=== PATIENT | female | born 1940 ===

== ENCOUNTER 2020-11-27 22:58 | Emergency (ER) | payer MEDICARE, BC ==
[2020-11-27] MEDS ORDERED: Sodium Chloride 0.9% 10 ML Syringe FLUSH PRN (22:59)
[2020-11-27] MEDS ORDERED: Sodium Chloride 0.9% 2.5 ML Syringe FLUSH PRN (22:59)
--- NOTE | 2020-11-27 23:02 | EDM.PDOC ---
ED HPI GENERAL MEDICAL PROBLEM - General Stated Complaint: EMS ARRIVAL Time Seen by Provider: 11/27/20 22:58 - History of Present Illness INITIAL COMMENTS - FREE TEXT/NARRATIVE: History of present illness: [] Patient missed her recliner and fell onto the floor on her back 4 hours before arrival. She was too weak to get up. She waited until EMS got there. She denies any injury. She does say she has been weak for more than 12 days. Her weakness is associated with feverishness, chills. Because of that her friends told her she should be tested for Covid but instead she has quarantined herself for 12 days. She continues to primarily suffer with weakness but she over the last day or 2 has had significant pain in her joints and all over. The patient has no shortness of breath. She has no chest pain. She is a non- smoker. She is diabetic and treated with gemfibrozil. She has no family history of heart attack or stroke. Review of systems: As per history of present illness and below otherwise all systems reviewed and negative. Past medical history: As per history of present illness and as reviewed below otherwise noncontributory. Surgical history: As per history of present illness and as reviewed below otherwise noncontributory. Social history: No reported history of drug or alcohol abuse. Family history: As per history of present illness and as reviewed below otherwise noncontributory. Physical exam: Constitutional - well developed, well-nourished and in no acute distress HEENT - normocephalic, no evidence of trauma - external nose and mouth normal - no mass in neck and no JVD - mucosae moist EYES - full EOM, PERRL, no icterus - no evidence of inflammation, injection, or drainage Respiratory - no respiratory distress, equal bilateral expansion, lungs clear to auscultation and no abnormal lung sounds Cardiovascular - Regular Rhythm with S1 and S2 appreciated and no murmur, gallop or rub. GI - abdomen soft without distension or organomegaly - normal bowel sounds - no guard or rebound Musculoskeletal no gross deformity of long bones or joints - no tenderness, swelling or edema Neurologic - Alert and oriented times four - CN II-XII grossly intact - motor sensory and coordination symmetrically normal Psychiatric - appropriate mood and affect with normal thought content Hematologic - No petechiae or purpura - mucosa appropriate color and sclera not pale - normal nail bed color and refill Integument - no rash or evidence of trauma - normal turgor Diagnostics: [] Therapeutics: [] Impression: [] Plan: [] Definitive disposition and diagnosis as appropriate pending reevaluation and review of above. Right Shoulder Pain Score (Numeric/FACES): 5 - Related Data Allergies Allergy/AdvReac Type Severity Reaction Status Date / Time psyllium [From Metamucil] Allergy Other Verified 11/27/20 23:00 Home Meds: Home Meds Acarbose 50 mg PO DAILY 11/27/20 [History] Acetaminophen/Codeine [Tylenol with Codeine No.3 300MG/30MG] 1 tab PO QID 11/27/20 [History] Furosemide 40 mg PO DAILY 11/27/20 [History] gemfibroziL [Gemfibrozil] 600 mg PO BID 11/27/20 [History] glyBURIDE [Micronase] 2.5 mg PO DAILY 11/27/20 [History] lisinopriL [Prinivil] 10 mg PO DAILY 11/27/20 [History] metFORMIN [Glucophage] 500 mg PO BID 11/27/20 [History] traZODone HCl [Trazodone HCl] 100 mg PO DAILY 11/27/20 [History] ED ROS PEDIATRIC - Review of Systems Review Of Systems: Comprehensive ROS is negative, except as noted in HPI. ED EXAM, GENERAL (PEDS) - Physical Exam Exam: See Below Text/Narrative:: My physical exam is in the HPI #1 Interpretation EKG Interpretation Comments: EKG sinus rhythm heart rate 99 NM 187 QT 477 QRS [address] and T normal impression normal EKG #2 Interpretation EKG Interpretation Comments: EKG at 137 shows sinus rhythm heart rate 89 NM 167 QT 462 [place] [address] normal T compared to the prior one tonight this is not changed and is still normal thus my impression normal EKG Course - Vital Signs Text/Narrative:: Troponin is positive had a large elevation of CPK. This is likely microvascular occlusion with non-STEMI. Transport will be at least 3-1/2 hours away so I am going to repeat the troponin to see if it is something that is rising or if it may be in fact a missed NV that could be monitored here and referred for outpatient cardiology evaluation. 2:16 AM patient remained stable and pain-free EKG was unchanged troponin flor slightly. Discussed with Dr. Mccauley at [facility] and he agreed to accept this patient so that she can have anatomic study of her heart. Patient has UTI for which we have given ceftriaxone and she has elevated troponin for which we are observing on a monitor and arranging transport for anatomic study. Last Recorded V/S: Last Vital Signs Temp 36.2 C 11/28/20 02:00 Pulse 105 H 11/28/20 08:30 Resp 16 11/28/20 08:30 BP 158/68 H 11/28/20 08:37 Pulse Ox 98 11/28/20 08:30 - Orders/Labs/Meds Orders: Active Orders 24 hr Category Date Time Status CULTURE URINE [RM] Stat Lab 11/28/20 00:22 Received Saline Lock Insert [OM.PC] Stat Oth 11/27/20 22:59 Ordered Labs: Laboratory Tests 11/27/20 11/27/20 11/27/20 Range/Units 23:10 23:18 23:18 WBC 24.63 H (4.0-11.0) K/uL RBC 3.17 L (4.30-5.90) M/uL Hgb 9.3 L (12.0-16.0) g/dL Hct 27.5 L (36.0-46.0) % MCV 86.8 (80.0-98.0) fL MCH 29.3 (27.0-32.0) pg MCHC 33.8 (31.0-37.0) g/dL RDW Std Deviation 44.3 (28.0-62.0) fl RDW Coeff of Masoud 14 (11.0-15.0) % Plt Count 472 H (150-400) K/uL MPV 8.30 (7.40-12.00) fL Add Manual Diff YES Neutrophils % (Manual) 86 H (48.0-80.0) % Band Neutrophils % 7 % Lymphocytes % (Manual) 4 L (16.0-40.0) % Monocytes % (Manual) 3 (0.0-15.0) % Nucleated RBC % 0.0 /100WBC Absolute Seg Neuts 21.2 H (1.4-5.7) Band Neutrophils # 1.7 Lymphocytes # (Manual) 1.0 (0.6-2.4) Monocytes # (Manual) 0.7 (0.0-0.8) Nucleated RBCs # 0 K/uL Sodium 129 L (136-145) mmol/L Potassium 3.6 (3.5-5.1) mmol/L Chloride 92 L (98-107) mmol/L Carbon Dioxide 23.4 (21.0-32.0) mmol/L BUN 18 (7.0-18.0) mg/dL Creatinine 1.4 H (0.6-1.0) mg/dL Est Cr Clr Drug Dosing 26.95 mL/min Estimated GFR (MDRD) 36.3 ml/min Glucose 218 H (74-106) mg/dL Calcium 9.0 (8.5-10.1) mg/dL Total Bilirubin 0.5 (0.2-1.0) mg/dL AST 22 (15-37) IU/L ALT 16 (14-63) IU/L Alkaline Phosphatase 93 (46-116) U/L Creatine Kinase 129 (26-308) U/L Troponin I 0.492 H* (0.000-0.056) ng/mL Total Protein 7.2 (6.4-8.2) g/dL Albumin 2.2 L (3.4-5.0) g/dL Globulin 5.0 H (2.6-4.0) g/dL Albumin/Globulin Ratio 0.4 L (0.9-1.6) Urine Color Urine Appearance Urine pH (5.0-8.0) Ur Specific [place] (1.001-1.035) Urine Protein (NEGATIVE) mg/dL Urine Glucose (UA) (NEGATIVE) mg/dL Urine Ketones (NEGATIVE) mg/dL Urine Occult Blood (NEGATIVE) Urine Nitrite (NEGATIVE) Urine Bilirubin (NEGATIVE) Urine Urobilinogen (<2.0) EU/dL Ur Leukocyte Esterase (NEGATIVE) Urine RBC (0-2/HPF) Urine WBC (0-5/HPF) Ur Epithelial Cells (NONE-FEW) Urine Bacteria (NEGATIVE) Urine Mucus (NONE-MOD) Urinalysis Comment SARS-CoV-2 RNA (RUPINDER) NEGATIVE (NEGATIVE) 11/27/20 11/28/20 11/28/20 Range/Units 23:40 01:30 07:10 WBC (4.0-11.0) K/uL RBC (4.30-5.90) M/uL Hgb (12.0-16.0) g/dL Hct (36.0-46.0) % MCV (80.0-98.0) fL MCH (27.0-32.0) pg MCHC (31.0-37.0) g/dL RDW Std Deviation (28.0-62.0) fl RDW Coeff of Masoud (11.0-15.0) % Plt Count (150-400) K/uL MPV (7.40-12.00) fL Add Manual Diff Neutrophils % (Manual) (48.0-80.0) % Band Neutrophils % % Lymphocytes % (Manual) (16.0-40.0) % Monocytes % (Manual) (0.0-15.0) % Nucleated RBC % /100WBC Absolute Seg Neuts (1.4-5.7) Band Neutrophils # Lymphocytes # (Manual) (0.6-2.4) Monocytes # (Manual) (0.0-0.8) Nucleated RBCs # K/uL Sodium (136-145) mmol/L Potassium (3.5-5.1) mmol/L Chloride (98-107) mmol/L Carbon Dioxide (21.0-32.0) mmol/L BUN (7.0-18.0) mg/dL Creatinine (0.6-1.0) mg/dL Est Cr Clr Drug Dosing mL/min Estimated GFR (MDRD) ml/min Glucose (74-106) mg/dL Calcium (8.5-10.1) mg/dL Total Bilirubin (0.2-1.0) mg/dL AST (15-37) IU/L ALT (14-63) IU/L Alkaline Phosphatase (46-116) U/L Creatine Kinase (26-308) U/L Troponin I 0.536 H* 0.436 H* (0.000-0.056) ng/mL Total Protein (6.4-8.2) g/dL Albumin (3.4-5.0) g/dL Globulin (2.6-4.0) g/dL Albumin/Globulin Ratio (0.9-1.6) Urine Color YELLOW Urine Appearance CLOUDY Urine pH 6.0 (5.0-8.0) Ur Specific [place] 1.025 (1.001-1.035) Urine Protein 100 H (NEGATIVE) mg/dL Urine Glucose (UA) NEGATIVE (NEGATIVE) mg/dL Urine Ketones NEGATIVE (NEGATIVE) mg/dL Urine Occult Blood MODERATE H (NEGATIVE) Urine Nitrite NEGATIVE (NEGATIVE) Urine Bilirubin NEGATIVE (NEGATIVE) Urine Urobilinogen 0.2 (<2.0) EU/dL Ur Leukocyte Esterase MODERATE H (NEGATIVE) Urine RBC 3-6 (0-2/HPF) Urine WBC TO NUMEROUS TO COUNT H (0-5/HPF) Ur Epithelial Cells MANY (NONE-FEW) Urine Bacteria 4+ H (NEGATIVE) Urine Mucus MODERATE (NONE-MOD) Urinalysis Comment SARS-CoV-2 RNA (RUPINDER) (NEGATIVE) Meds: Medications Discontinued Medications Generic Name Dose Route Start Last Admin Trade Name Freq PRN Reason Stop Dose Admin Aspirin 324 mg 11/28/20 00:20 11/28/20 00:39 Aspirin PO 11/28/20 00:21 324 mg ONETIME ONE Administration Sodium Chloride 1,000 mls @ 125 mls/hr 11/28/20 00:20 11/28/20 00:37 Normal Saline IV 11/28/20 08:19 125 mls/hr .Bolus ONE Administration Ceftriaxone Sodium/Dextrose 1 50 mls @ 100 mls/hr 11/28/20 00:23 11/28/20 00:38 gm/ Premix IV 11/28/20 00:52 100 mls/hr ONETIME ONE Administration Sodium Chloride 10 ml 11/27/20 22:59 Saline Flush FLUSH ASDIRECTED PRN Keep Vein Open Sodium Chloride 2.5 ml 11/27/20 22:59 Saline Flush FLUSH ASDIRECTED PRN Keep Vein Open Departure - Departure Time of Disposition: 08:50 Disposition: DC/Tfer to Acute Hospital 02 Condition: Good Clinical Impression: UTI (urinary tract infection), Weakness, Type 2 diabetes mellitus, Elevated troponin I level - Discharge Information Referrals: PCP,None [Primary Care Provider] - Forms: ED Department Discharge Sepsis Event Note (ED) - Focused Exam Vital Signs: Vital Signs Pulse Resp BP Pulse Ox 11/28/20 08:37 158/68 H 11/28/20 08:30 105 H 16 142/67 H 98 11/28/20 08:00 18 148/64 H 98 11/28/20 07:30 19 140/61 97 - My Orders Last 24 Hours: My Active Orders 11/27/20 22:59 Saline Lock Insert [OM.PC] Stat 11/28/20 00:22 CULTURE URINE [RM] Stat - Assessment/Plan Last 24 Hours: My Active Orders 11/27/20 22:59 Saline Lock Insert [OM.PC] Stat 11/28/20 00:22 CULTURE URINE [RM] Stat
--- NOTE | 2020-11-27 23:32 | CR ---
HISTORY: Pain after fall COMPARISON: None available. FINDINGS: A single AP view of the pelvis obtained using portable technique at 2310 hours shows no sign of fracture or dislocation. There appears to be mild primary osteoarthritis of both sacroiliac joints. The hips are normal in appearance with no significant degenerative changes. There is prominence disc degenerative disease in the visualized inferior lumbar spine, associated with mild scoliosis convex towards the left. The soft tissues of the pelvis are unremarkable. IMPRESSION: No sign of acute osseous injury. 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 Dictated by Jaime Elam MD @ Nov 27 2020 11:27PM Signed by Dr. Jaime Elam @ Nov 27 2020 11:30PM
[2020-11-27 23:48] LABS: CARBON DIOXIDE,CO2 23.4 mmol/L (21.0-32.0); POTASSIUM,K 3.6 mmol/L (3.5-5.1)
[2020-11-28] MEDS ORDERED: Sodium Chloride 0.9% 1,000 ML IV ONE (00:20)
[2020-11-28] MEDS ORDERED: Aspirin 81 MG Tab.Chew PO ONE (00:20)
[2020-11-28] MEDS ORDERED: cefTRIAXone 1 GM in Premix Bag 1 BAG IV ONE (00:23)
== END 2020-11-28 08:50 ==
LOC: MW.ED 22:58
DX: N39.0 Urinary tract infection, site not specified (principal); E11.9 Type 2 diabetes mellitus without complications; R79.89 Other specified abnormal findings of blood chemistry; Z20.822 Contact with and (suspected) exposure to COVID-19; Z79.899 Other long term (current) drug therapy
CPT/HCPCS: 36415; 72170; 80053; 81001; 82550; 84484; 85025; 87086; 87088; 87186; 93005; 96365; 99285; A9270; J0696; J7030; U0002; 93010; 99284

== ENCOUNTER 2021-02-10 09:17 | Emergency (ER) | payer MEDICARE, BC ==
--- NOTE | 2021-02-10 09:20 | EDM.PDOC ---
ED HPI GENERAL MEDICAL PROBLEM - General Stated Complaint: BACK PAIN Time Seen by Provider: 02/10/21 09:18 Source of Information: Reports: Patient History Limitations: Reports: No Limitations - History of Present Illness INITIAL COMMENTS - FREE TEXT/NARRATIVE: 80-year-old female past medical history hypertension, NSTEMI 3 months ago, hyperlipidemia presents for back pain. Patient notes that she is struggled with left-sided lower back pain radiating into her lateral thigh for several months. For the last week the pain has been getting worse. She denies any dysuria, hematuria, urinary incontinence, and urinary retention. She is able to walk and denies muscle weakness but notes that it is painful all the time. Lower Back Pain Score (Numeric/FACES): 10 - Related Data Allergies Allergy/AdvReac Type Severity Reaction Status Date / Time psyllium [From Metamucil] Allergy Other Verified 02/10/21 09:42 Home Meds: Home Meds Acarbose 50 mg PO DAILY 11/27/20 [History] Acetaminophen/Codeine [Tylenol with Codeine No.3 300MG/30MG] 1 tab PO QID 11/27/20 [History] Furosemide 40 mg PO DAILY 11/27/20 [History] gemfibroziL [Gemfibrozil] 600 mg PO BID 11/27/20 [History] glyBURIDE [Micronase] 2.5 mg PO DAILY 11/27/20 [History] lisinopriL [Prinivil] 10 mg PO DAILY 11/27/20 [History] metFORMIN [Glucophage] 500 mg PO BID 11/27/20 [History] traZODone HCl [Trazodone HCl] 100 mg PO DAILY 11/27/20 [History] Acetaminophen/oxyCODONE [Percocet 325-5 MG] 1 each PO Q4H PRN 3 Days #18 tab 02/10/21 [Rx] Cyclobenzaprine [Flexeril] 10 mg PO TID PRN 3 Days #20 tab 02/10/21 [Rx] Omeprazole 20 mg PO DAILY 02/10/21 [History] Sulfamethoxazole/Trimethoprim [Bactrim Ds Tablet] 1 each PO BID 7 Days #14 tablet 02/10/21 [Rx] Past Medical History HEENT History: Reports: Cataract Cardiovascular History: Reports: High Cholesterol, Hypertension Respiratory History: Reports: None Gastrointestinal History: Reports: GERD Genitourinary History: Reports: None POLICY MANAGER History: Reports: None Musculoskeletal History: Reports: Arthritis Neurological History: Reports: Migraines Psychiatric History: Reports: Depression Endocrine/Metabolic History: Reports: Diabetes, Type II Hematologic History: Reports: None Oncologic (Cancer) History: Reports: None Dermatologic History: Reports: None - Infectious Disease History Infectious Disease History: Reports: Measles - Past Surgical History HEENT Surgical History: Reports: Cataract Surgery GI Surgical History: Reports: Appendectomy, Cholecystectomy Social & Family History - Caffeine Use Caffeine Use: Reports: None ED ROS GENERAL - Review of Systems Review Of Systems: Comprehensive ROS is negative, except as noted in HPI. ED EXAM, GENERAL - Physical Exam Exam: See Below Exam Limited By: No Limitations General Appearance: Alert, WD/WN, No Apparent Distress Throat/Mouth: Normal Voice, No Airway Compromise Head: Atraumatic, Normocephalic Neck: Normal Inspection Respiratory/Chest: No Respiratory Distress, Lungs Clear, Normal Breath Sounds, No Accessory Muscle Use GI/Abdominal: Soft, Non-Tender Back Exam: Normal Inspection Extremities: Normal Inspection Neurological: Alert, Normal Gait Psychiatric: Normal Affect, Normal Mood Skin Exam: Warm, Dry, Intact, Normal Color Course - Vital Signs Last Recorded V/S: Last Vital Signs Temp 97.2 F 02/10/21 09:43 Pulse 100 02/10/21 09:43 Resp 20 02/10/21 09:43 BP 149/68 H 02/10/21 09:43 Pulse Ox 99 02/10/21 09:43 - Orders/Labs/Meds Orders: Active Orders 24 hr Category Date Time Status CULTURE URINE [RM] Stat Lab 02/10/21 10:16 Received Sulfamethoxazole/Trimethoprim [Septra DS] Med 02/10/21 10:39 Once 1 tab PO ONETIME ONE Labs: Laboratory Tests 02/10/21 Range/Units 10:16 Urine Color YELLOW Urine Appearance CLOUDY Urine pH 6.0 (5.0-8.0) Ur Specific [place] 1.025 (1.001-1.035) Urine Protein 100 H (NEGATIVE) mg/dL Urine Glucose (UA) NEGATIVE (NEGATIVE) mg/dL Urine Ketones NEGATIVE (NEGATIVE) mg/dL Urine Occult Blood MODERATE H (NEGATIVE) Urine Nitrite NEGATIVE (NEGATIVE) Urine Bilirubin NEGATIVE (NEGATIVE) Urine Urobilinogen 0.2 (<2.0) EU/dL Ur Leukocyte Esterase LARGE H (NEGATIVE) Urine RBC 1-3 (0-2/HPF) Urine WBC TO NUMEROUS TO COUNT H (0-5/HPF) Ur Epithelial Cells FEW (NONE-FEW) Urine Bacteria 4+ H (NEGATIVE) Meds: Medications Discontinued Medications Generic Name Dose Route Start Last Admin Trade Name Freq PRN Reason Stop Dose Admin Cyclobenzaprine HCl 10 mg 02/10/21 10:06 02/10/21 10:20 Cyclobenzaprine 10 Mg Tab PO 02/10/21 10:07 10 mg ONETIME ONE Administration Dexamethasone 6 mg 02/10/21 10:06 02/10/21 10:20 Dexamethasone 10 Mg/Ml Sdv IM 02/10/21 10:07 6 mg ONETIME ONE Administration Oxycodone/Acetaminophen 1 tab 02/10/21 10:06 02/10/21 10:21 Acetaminophen/Oxycodone 325-10 Mg Tab PO 02/10/21 10:07 1 tab ONETIME ONE Administration - Re-Assessments/Exams Free Text/Narrative Re-Assessment/Exam: 02/10/21 10:08 Explained to patient that she will likely need an outpatient MRI of the back to further elucidate the etiology of her symptoms. Will treat symptomatically with Decadron, Percocet, Flexeril in the emergency department. Will get a urinalysis considering patient's advanced age to r/o urinary tract infection. 02/10/21 10:40 Patient's urinalysis does show evidence of urinary tract infection. Will give Bactrim and discharged with Bactrim, Percocet, Flexeril. Patient needs to follow-up with her primary care physician for further work-up of this chronic back pain. Departure - Departure Time of Disposition: 10:40 Disposition: Home, Self-Care 01 Condition: Good Clinical Impression: UTI (urinary tract infection) Qualifiers: Urinary tract infection type: acute cystitis Hematuria presence: without hematuria Qualified Code(s): N30.00 - Acute cystitis without hematuria Sciatica Qualifiers: Laterality: left Qualified Code(s): M54.32 - Sciatica, left side - Discharge Information Prescriptions: Sulfamethoxazole/Trimethoprim [Bactrim Ds Tablet] 1 each PO BID 7 Days #14 tablet Cyclobenzaprine [Flexeril] 10 mg PO TID PRN 3 Days #20 tab PRN Reason: Muscle Spasm Acetaminophen/oxyCODONE [Percocet 325-5 MG] 1 each PO Q4H PRN 3 Days #18 tab PRN Reason: Pain Instructions: Urinary Tract Infection, Adult, Sciatica Referrals: Perez Coppola MD [Primary Care Provider] - Sepsis Event Note (ED) - Focused Exam Vital Signs: Vital Signs Temp Pulse Resp BP Pulse Ox 02/10/21 09:43 97.2 F 100 20 149/68 H 99 - My Orders Last 24 Hours: My Active Orders 02/10/21 10:16 CULTURE URINE [RM] Stat 02/10/21 10:39 Sulfamethoxazole/Trimethoprim [Septra DS] 1 tab PO ONETIME ONE - Assessment/Plan Last 24 Hours: My Active Orders 02/10/21 10:16 CULTURE URINE [RM] Stat 02/10/21 10:39 Sulfamethoxazole/Trimethoprim [Septra DS] 1 tab PO ONETIME ONE
[2021-02-10] MEDS ORDERED: Cyclobenzaprine 10 MG Tab PO ONE (10:06)
[2021-02-10] MEDS ORDERED: Acetaminophen/oxyCODONE 325-10 MG Tab PO ONE (10:06)
[2021-02-10] MEDS ORDERED: Dexamethasone 10 MG/ML SDV IM ONE (10:06)
[2021-02-10] MEDS ORDERED: Sulfamethoxazole/Trimethoprim 800-160 MG Tab PO ONE (10:39)
== END 2021-02-10 10:48 | disposition home or self-care (01) ==
LOC: MW.ED 09:17
DX: N30.00 Acute cystitis without hematuria (principal); M54.42 Lumbago with sciatica, left side; I10 Essential (primary) hypertension; I25.2 Old myocardial infarction; K21.9 Gastro-esophageal reflux disease without esophagitis; E11.9 Type 2 diabetes mellitus without complications; Z79.84 Long term (current) use of oral hypoglycemic drugs; Z88.8 Allergy status to other drugs, medicaments and biological substances; Z79.899 Other long term (current) drug therapy
CPT/HCPCS: 81001; 87086; 87088; 87186; 96372; 99283; A9270; J1100

== ENCOUNTER 2021-03-02 06:37 | Observation (INO) | payer MEDICARE, BC ==
--- NOTE | 2021-03-02 07:18 | EDM.PDOC ---
ED HPI GENERAL MEDICAL PROBLEM - General Chief Complaint: Abdominal Pain Stated Complaint: SICK Time Seen by Provider: 03/02/21 07:00 Source of Information: Reports: Patient History Limitations: Reports: No Limitations - History of Present Illness INITIAL COMMENTS - FREE TEXT/NARRATIVE: Patient is a 80-year-old female who today presents for diarrhea for the past 4 days. Patient denies any recent travels antibiotic use or any new foods. Patient lives at home. Patient reports been able to take p.o. but does have some nausea. Patient friend at bedside states patient has some decreased p.o. for the past few months patient states she is does not like to eat or taste food anymore. Patient otherwise denies any fever chills cough shortness of breath. Patient did mention some suprapubic pain made worse with her pains touching area. Lower Abdomen Pain Score (Numeric/FACES): 5 - Related Data Allergies Allergy/AdvReac Type Severity Reaction Status Date / Time psyllium [From Metamucil] Allergy Other Verified 03/02/21 11:17 Home Meds: Home Meds Acarbose 50 mg PO TID 11/27/20 [History] Acetaminophen/Codeine [Tylenol with Codeine No.3 300MG/30MG] 1 tab PO QID PRN 11/27/20 [History] Furosemide 40 mg PO DAILY 11/27/20 [History] gemfibroziL [Gemfibrozil] 600 mg PO BID 11/27/20 [History] glyBURIDE [Micronase] 2.5 mg PO BIDMEALS 11/27/20 [History] lisinopriL [Prinivil] 10 mg PO DAILY 11/27/20 [History] metFORMIN [Glucophage] 500 mg PO TID 11/27/20 [History] traZODone HCl [Trazodone HCl] 50 mg PO BEDTIME 11/27/20 [History] Omeprazole 20 mg PO DAILY 02/10/21 [History] Acetaminophen/Caffeine [Excedrin Tension Headache] 1 tab PO PRN 03/02/21 [History] Past Medical History HEENT History: Reports: Cataract Cardiovascular History: Reports: High Cholesterol, Hypertension Respiratory History: Reports: None Gastrointestinal History: Reports: GERD Genitourinary History: Reports: None 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: Reports: 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 Musculoskeletal History: Reports: Arthritis Neurological History: Reports: Migraines Psychiatric History: Reports: Depression Endocrine/Metabolic History: Reports: Diabetes, Type II Hematologic History: Reports: None Immunologic History: Reports: None Oncologic (Cancer) History: Reports: None Dermatologic History: Reports: None - Infectious Disease History Infectious Disease History: Reports: Measles - Past Surgical History HEENT Surgical History: Reports: Cataract Surgery GI Surgical History: Reports: Appendectomy, Cholecystectomy Social & Family History - Family History Family Medical History: No Pertinent Family History - Tobacco Use Tobacco Use Status *Q: Never Tobacco User Second Hand Smoke Exposure: No - Caffeine Use Caffeine Use: Reports: None - Recreational Drug Use Recreational Drug Use: No ED ROS GENERAL - Review of Systems Review Of Systems: See Below Constitutional: Reports: No Symptoms HEENT: Reports: No Symptoms Respiratory: Reports: No Symptoms Cardiovascular: Reports: No Symptoms Endocrine: Reports: No Symptoms GI/Abdominal: Reports: Abdominal Pain, Diarrhea : Reports: No Symptoms Musculoskeletal: Reports: No Symptoms Skin: Reports: No Symptoms Neurological: Reports: No Symptoms Psychiatric: Reports: No Symptoms Hematologic/Lymphatic: Reports: No Symptoms Immunologic: Reports: No Symptoms ED EXAM, GI/ABD - Physical Exam Exam: See Below Exam Limited By: No Limitations General Appearance: Alert, WD/WN Eyes: Bilateral: EOMI Respiratory/Chest: No Respiratory Distress, Lungs Clear, Normal Breath Sounds Cardiovascular: Normal Peripheral Pulses, Regular Rate, Rhythm GI/Abdominal Exam: Normal Bowel Sounds, Soft, Tender Extremities: Normal Inspection, Normal Range of Motion Neurological: Alert, Oriented, CN II-XII Intact, Normal Cognition #1 Interpretation EKG Date: 03/02/21 Time: 07:40 Rhythm: Other (sinus tachy) Rate (Beats/Min): 108 ST-T: Normal Course - Vital Signs Last Recorded V/S: Last Vital Signs Temp 97.8 F 03/02/21 11:16 Pulse 108 H 03/02/21 11:16 Resp 18 03/02/21 11:16 BP 135/78 03/02/21 11:16 Pulse Ox 98 03/02/21 11:16 - Orders/Labs/Meds Orders: Active Orders 24 hr Category Date Time Status EKG 12 Lead [EKG Documentation Completion] [RC] STAT Care 03/02/21 07:24 Active Notify Provider Consults [RC] ASDIRECTED Care 03/02/21 09:25 Active Consult to Physician [CONS] Stat Cons 03/02/21 09:24 Active UA W/WANG RFLX IF INDICATED [URIN] Stat Lab 03/02/21 06:47 Ordered Medication Orders Acetaminophen/Codeine Phosphate (Acetaminophen/Codeine 300-30 Mg Tab) 1 tab PO QID PRN PRN Reason: Pain Last Admin: 03/02/21 14:55 Dose: 1 tab Documented by: MIMI Albuterol/Ipratropium (Albuterol/Ipratropium 3.0-0.5 Mg/3 Ml Neb Soln) 3 ml NEB Q4HRRT PRN PRN Reason: Shortness Of Breath/wheezing Dextrose/Water (50% Dextrose In Water 50 Ml Syringe) 50 ml IV ASDIRECTED PRN PRN Reason: Hypoglycemia Glucagon (Glucagon,Human Recombinant 1 Mg Vial) 1 mg IM ASDIRECTED PRN PRN Reason: Hypoglycemia Piperacillin Sod/Tazobactam (Sod 3.375 gm/ Sodium Chloride) 50 mls @ 100 mls/hr IV Q8H DARCY Pantoprazole Sodium 40 mg/ (Sodium Chloride) 10 mls @ 200 mls/hr IV Q12HR DARCY Last Admin: 03/02/21 12:21 Dose: 200 mls/hr Documented by: MIMI Lactated Ringer's (Ringers, Lactated) 1,000 mls @ 125 mls/hr IV Q8H DARCY Last Admin: 03/02/21 13:54 Dose: 125 mls/hr Documented by: MIMI Insulin Aspart (Insulin Aspart 100 Units/Ml 3 Ml Pen) 0 unit SUBCUT TIDAC DARCY; Protocol Ondansetron HCl (Ondansetron 4 Mg/2 Ml Sdv) 4 mg IVPUSH Q4H PRN PRN Reason: Nausea/Vomiting Trazodone HCl (Trazodone 50 Mg Tab) 50 mg PO BEDTIME DARCY Labs: Laboratory Tests 03/02/21 03/02/21 03/02/21 Range/Units 05:56 06:57 06:57 WBC 17.77 H (4.0-11.0) K/uL RBC 3.87 L (4.30-5.90) M/uL Hgb 10.1 L (12.0-16.0) g/dL Hct 30.5 L (36.0-46.0) % MCV 78.8 L (80.0-98.0) fL MCH 26.1 L (27.0-32.0) pg MCHC 33.1 (31.0-37.0) g/dL RDW Std Deviation 49.0 (28.0-62.0) fl RDW Coeff of Masoud 17 H (11.0-15.0) % Plt Count 492 H (150-400) K/uL MPV 8.40 (7.40-12.00) fL Neut % (Auto) 82.9 H (48.0-80.0) % Lymph % (Auto) 8.4 L (16.0-40.0) % [place] % (Auto) 8.4 (0.0-15.0) % Eos % (Auto) 0.1 (0.0-7.0) % Baso % (Auto) 0.2 (0.0-1.5) % Neut # (Auto) 14.7 H (1.4-5.7) K/uL Lymph # (Auto) 1.5 (0.6-2.4) K/uL [place] # (Auto) 1.5 H (0.0-0.8) K/uL Eos # (Auto) 0.0 (0.0-0.7) K/uL Baso # (Auto) 0.0 (0.0-0.1) K/uL Nucleated RBC % 0.0 /100WBC Nucleated RBCs # 0 K/uL Sodium 130 L (136-145) mmol/L Potassium 3.5 (3.5-5.1) mmol/L Chloride 91 L (98-107) mmol/L Carbon Dioxide 22.5 (21.0-32.0) mmol/L BUN 23 H (7.0-18.0) mg/dL Creatinine 2.0 H (0.6-1.0) mg/dL Est Cr Clr Drug Dosing 18.87 mL/min Estimated GFR (MDRD) 24.0 ml/min Glucose 192 H (74-106) mg/dL Calcium 9.4 (8.5-10.1) mg/dL Magnesium 1.8 (1.8-2.4) mg/dL Total Bilirubin 0.2 (0.2-1.0) mg/dL AST 19 (15-37) IU/L ALT 13 L (14-63) IU/L Alkaline Phosphatase 144 H (46-116) U/L Total Protein 7.2 (6.4-8.2) g/dL Albumin 2.2 L (3.4-5.0) g/dL Globulin 5.0 H (2.6-4.0) g/dL Albumin/Globulin Ratio 0.4 L (0.9-1.6) Lipase 107 (73-393) U/L Influenza Type A RNA (NEGATIVE) Influenza Type B RNA (NEGATIVE) SARS-CoV-2 RNA (RUPINDER) (NEGATIVE) 03/02/21 Range/Units 09:21 WBC (4.0-11.0) K/uL RBC (4.30-5.90) M/uL Hgb (12.0-16.0) g/dL Hct (36.0-46.0) % MCV (80.0-98.0) fL MCH (27.0-32.0) pg MCHC (31.0-37.0) g/dL RDW Std Deviation (28.0-62.0) fl RDW Coeff of Masoud (11.0-15.0) % Plt Count (150-400) K/uL MPV (7.40-12.00) fL Neut % (Auto) (48.0-80.0) % Lymph % (Auto) (16.0-40.0) % [place] % (Auto) (0.0-15.0) % Eos % (Auto) (0.0-7.0) % Baso % (Auto) (0.0-1.5) % Neut # (Auto) (1.4-5.7) K/uL Lymph # (Auto) (0.6-2.4) K/uL [place] # (Auto) (0.0-0.8) K/uL Eos # (Auto) (0.0-0.7) K/uL Baso # (Auto) (0.0-0.1) K/uL Nucleated RBC % /100WBC Nucleated RBCs # K/uL Sodium (136-145) mmol/L Potassium (3.5-5.1) mmol/L Chloride (98-107) mmol/L Carbon Dioxide (21.0-32.0) mmol/L BUN (7.0-18.0) mg/dL Creatinine (0.6-1.0) mg/dL Est Cr Clr Drug Dosing mL/min Estimated GFR (MDRD) ml/min Glucose (74-106) mg/dL Calcium (8.5-10.1) mg/dL Magnesium (1.8-2.4) mg/dL Total Bilirubin (0.2-1.0) mg/dL AST (15-37) IU/L ALT (14-63) IU/L Alkaline Phosphatase (46-116) U/L Total Protein (6.4-8.2) g/dL Albumin (3.4-5.0) g/dL Globulin (2.6-4.0) g/dL Albumin/Globulin Ratio (0.9-1.6) Lipase (73-393) U/L Influenza Type A RNA NEGATIVE (NEGATIVE) Influenza Type B RNA NEGATIVE (NEGATIVE) SARS-CoV-2 RNA (RUPINDER) NEGATIVE (NEGATIVE) Meds: Medications Generic Name Dose Route Start Last Admin Trade Name Freq PRN Reason Stop Dose Admin Acetaminophen/Codeine Phosphate 1 tab 03/02/21 12:00 03/02/21 14:55 Acetaminophen/Codeine 300-30 Mg Tab PO 1 tab QID PRN Administration Pain Albuterol/Ipratropium 3 ml 03/02/21 11:42 Albuterol/Ipratropium 3.0-0.5 Mg/3 Ml Neb Soln NEB Q4HRRT PRN Shortness Of Breath/wheezing Dextrose/Water 50 ml 03/02/21 11:47 50% Dextrose In Water 50 Ml Syringe IV ASDIRECTED PRN Hypoglycemia Glucagon 1 mg 03/02/21 11:47 Glucagon,Human Recombinant 1 Mg Vial IM ASDIRECTED PRN Hypoglycemia Piperacillin Sod/Tazobactam 50 mls @ 100 mls/hr 03/02/21 17:00 Sod 3.375 gm/ Sodium Chloride IV Q8H DARCY Pantoprazole Sodium 40 mg/ 10 mls @ 200 mls/hr 03/02/21 12:00 03/02/21 12:21 Sodium Chloride IV 200 mls/hr Q12HR DARCY Administration Lactated Ringer's 1,000 mls @ 125 mls/hr 03/02/21 12:45 03/02/21 13:54 Ringers, Lactated IV 125 mls/hr Q8H DARCY Administration Insulin Aspart 0 unit 03/02/21 17:00 Insulin Aspart 100 Units/Ml 3 Ml Pen SUBCUT TIDAC DARCY Protocol Ondansetron HCl 4 mg 03/02/21 11:42 Ondansetron 4 Mg/2 Ml Sdv IVPUSH Q4H PRN Nausea/Vomiting Trazodone HCl 50 mg 03/02/21 21:00 Trazodone 50 Mg Tab PO BEDTIME DARCY Discontinued Medications Generic Name Dose Route Start Last Admin Trade Name Freq PRN Reason Stop Dose Admin Acetaminophen 650 mg 03/02/21 11:42 Acetaminophen 325 Mg Tab PO Q4H PRN Pain (Mild 1-3)/fever Piperacillin Sod/Tazobactam 50 mls @ 100 mls/hr 03/02/21 09:24 03/02/21 09:44 Sod 3.375 gm/ Sodium Chloride IV 03/02/21 09:53 100 mls/hr ONETIME ONE Administration Sodium Chloride 1,000 mls @ 1,000 mls/hr 03/02/21 09:35 03/02/21 09:44 Normal Saline IV 03/02/21 10:34 1,000 mls/hr .Bolus ONE Administration Lactated Ringer's 1,000 mls @ 999 mls/hr 03/02/21 11:45 03/02/21 12:25 Ringers, Lactated IV 03/02/21 12:45 999 mls/hr .BOLUS ONE Administration Ketorolac Tromethamine 30 mg 03/02/21 07:32 03/02/21 07:43 Ketorolac 30 Mg/Ml Sdv IVPUSH 03/02/21 07:33 30 mg ONETIME ONE Administration Departure - Departure Time of Disposition: 10:00 Disposition: Admitted As Inpatient 67 Condition: Good Clinical Impression: Abdominal mass - Discharge Information Sepsis Event Note (ED) - Evaluation Sepsis Screening Result: No Definite Risk - Focused Exam Vital Signs: Vital Signs Temp Pulse Resp BP Pulse Ox 03/02/21 06:42 97.8 F 110 H 18 144/69 H 96 - My Orders Last 24 Hours: My Active Orders 03/02/21 07:24 EKG 12 Lead [EKG Documentation Completion] [RC] STAT 03/02/21 09:24 Consult to Physician [CONS] Stat 03/02/21 09:25 Notify Provider Consults [RC] ASDIRECTED - Assessment/Plan Last 24 Hours: My Active Orders 03/02/21 07:24 EKG 12 Lead [EKG Documentation Completion] [RC] STAT 03/02/21 09:24 Consult to Physician [CONS] Stat 03/02/21 09:25 Notify Provider Consults [RC] ASDIRECTED Plan: Patient is a 80-year-old female who presents today for diarrhea and lower abdominal pain. Patient will be given IV fluids pain control labs and reassess.
[2021-03-02 07:26] LABS: CARBON DIOXIDE,CO2 22.5 mmol/L (21.0-32.0); POTASSIUM,K 3.5 mmol/L (3.5-5.1)
[2021-03-02] MEDS ORDERED: Ketorolac 30 MG/ML SDV IVPUSH ONE (07:32)
--- NOTE | 2021-03-02 09:03 | CT ---
INDICATION: Left lower quadrant pain with diarrhea. Anorexia. COMPARISON: None. TECHNIQUE: Noncontrast images. FINDINGS: Mitral valve calcification. Coronary artery atherosclerosis. Low-attenuation/heterogeneous expansion of the left psoas muscle and retroperitoneal soft tissues lateral from the aorta and deep to the left kidney which appears slightly compressed by the retroperitoneal process and displaced cephalad and slightly lateral. Relatively lower attenuation slightly rounded area of fullness at the posterior mid pole left kidney may be mass or complex cyst measuring 3.8 cm diameter. Craniocaudal length of abnormal soft tissue centered at the left psoas is roughly 14 cm in greatest transverse diameter 11 x 10 cm. Diffuse atherosclerotic vascular calcification. Cholecystectomy clips. No dilatation or inflammation of small bowel or large bowel. No air or fluid in the peritoneum. Levoscoliosis centered at L3-4. Diffuse degenerative disc and facet changes in the spine. IMPRESSION: 1. Mass lesion favored over prominent chronic hematoma expanding the left retroperitoneum/psoas. Contrast CT recommended further characterization. If patient cannot tolerate contrast, contrast MRI may help further characterize as well. 2. 3.8 cm complex cyst or solid mass posterior midpole left kidney. Attention on follow-up imaging recommended. 3. Results and recommendations discussed with Dr. Ceja at 9 a.m. 02 March 2021. Please note that all CT scans at this facility use dose modulation, iterative reconstruction, and/or weight-based dosing when appropriate to reduce radiation dose to as low as reasonably achievable. Dictated by Jonatan Echevarria MD @ 03/02/2021 9:01:[address] Jonatan Echevarria @ Mar 02 2021 9:01AM
[2021-03-02] MEDS ORDERED: Piperacillin/Tazobactam 3.375 GM in Sodium Chloride 0.9% 50 ML IV ONE (09:24)
[2021-03-02] MEDS ORDERED: Sodium Chloride 0.9% 1,000 ML IV ONE (09:35)
[2021-03-02 10:13] LABS: CORONAVIRUS COVID-19 NAA NEGATIVE (NEGATIVE); INFLUENZA A NAA NEGATIVE (NEGATIVE); INFLUENZA B NAA NEGATIVE (NEGATIVE)
[2021-03-02] MEDS ORDERED: Ondansetron 4 MG/2 ML SDV IVPUSH PRN (11:42)
[2021-03-02] MEDS ORDERED: Albuterol/Ipratropium 3.0-0.5 MG/3 ML Neb Soln NEB PRN (11:42)
[2021-03-02] MEDS ORDERED: Acetaminophen 325 MG Tab PO PRN ×2 (11:42→18:43)
--- NOTE | 2021-03-02 11:42 | PCM.HP.2 ---
H&P History of Present Illness - General Date of Service: 03/02/21 Admit Problem/Dx: Admission Diagnosis/Problem Admission Diagnosis/Problem Abdominal mass - History of Present Illness Initial Comments - Free Text/Narative: Patient is a 80-year-old female with pmh of NSTEMI, DM who today presents for diarrhea for the past 4 days as well as chronic low back pain. Patient friend at bedside states patient has some decreased p.o. for the past few months patient states she is does not like to eat or taste food anymore andhasbeen having dry heaves, with some vomitting and diarrhea for past few days. Patient otherwise denies any fever chills cough shortness of breath. Patient did mention some suprapubic pain as well. Patient has a h/o fall in nov 2020, at that time xray of back showed to acute findings, she was transferred to [facility] due to elevtaed cardiac enzymes for further management. Over at [facility] she states she didnt under go angiography and was discharged in 2 days. Patient has been having worsening back pain since, recently was seen in ER for back pain and treated for UTI. In er CT abdomen was done which showed a large retroperitoneal mass, possibly "chronic hematoma", although difficult to characterize due to lack of contrast. Surgery was consulted, recommended MRI for further characterization, admission to medicine team and they would follow up as a consult. Patient was admitted for further management. Patient states that she has chirag from her gallbladder surgery. Lower Abdomen Pain Score (Numeric/FACES): 5 - Related Data Allergies/Adverse Reactions: Allergies Allergy/AdvReac Type Severity Reaction Status Date / Time psyllium [From Metamucil] Allergy Other Verified 03/02/21 11:17 Home Medications: Home Meds Acarbose 50 mg PO TID 11/27/20 [History] Acetaminophen/Codeine [Tylenol with Codeine No.3 300MG/30MG] 1 tab PO QID PRN 11/27/20 [History] Furosemide 40 mg PO DAILY 11/27/20 [History] gemfibroziL [Gemfibrozil] 600 mg PO BID 11/27/20 [History] glyBURIDE [Micronase] 2.5 mg PO BIDMEALS 11/27/20 [History] lisinopriL [Prinivil] 10 mg PO DAILY 11/27/20 [History] metFORMIN [Glucophage] 500 mg PO TID 11/27/20 [History] traZODone HCl [Trazodone HCl] 50 mg PO BEDTIME 11/27/20 [History] Omeprazole 20 mg PO DAILY 02/10/21 [History] Acetaminophen/Caffeine [Excedrin Tension Headache] 1 tab PO PRN 03/02/21 [History] Past Medical History HEENT History: Reports: Cataract Cardiovascular History: Reports: High Cholesterol, Hypertension Respiratory History: Reports: None Gastrointestinal History: Reports: GERD Genitourinary History: Reports: None 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 Musculoskeletal History: Reports: Arthritis Neurological History: Reports: Migraines Psychiatric History: Reports: Depression Endocrine/Metabolic History: Reports: Diabetes, Type II Hematologic History: Reports: None Immunologic History: Reports: None Oncologic (Cancer) History: Reports: None Dermatologic History: Reports: None - Infectious Disease History Infectious Disease History: Reports: Chicken Pox, Measles - Past Surgical History HEENT Surgical History: Reports: Cataract Surgery Cardiovascular Surgical History: Reports: None GI Surgical History: Reports: Appendectomy, Cholecystectomy Social & Family History - Family History Family Medical History: No Pertinent Family History - Tobacco Use Tobacco Use Status *Q: Former Tobacco User Used Tobacco, but Quit: Yes Month/Year Tobacco Last Used: 2003 Second Hand Smoke Exposure: No - Caffeine Use Caffeine Use: Reports: Coffee, Tea - Recreational Drug Use Recreational Drug Use: No H&P Review of Systems - Review of Systems: Review Of Systems: See Below General: Reports: Fever, Malaise, Weakness. Denies: Chills Pulmonary: Denies: Shortness of Breath, Wheezing Cardiovascular: Denies: Chest Pain, Palpitations, Dyspnea on Exertion Gastrointestinal: Reports: Anorexia, Diarrhea, Nausea, Vomiting. Denies: Abdominal Pain Genitourinary: Reports: Dysuria, Frequency, Pain Musculoskeletal: Reports: Back Pain. Denies: Neck Pain, Shoulder Pain, Joint Swelling, Muscle Pain Skin: Denies: Cyanosis, Jaundice, Mottled Psychiatric: Reports: Confusion, Anxiety. Denies: Mood Lability Exam - Exam Exam: See Below - Vital Signs Vital Signs: Last Vital Signs Temp 36.6 C 03/02/21 11:16 Pulse 108 H 03/02/21 11:16 Resp 18 03/02/21 11:16 BP 135/78 03/02/21 11:16 Pulse Ox 98 03/02/21 11:16 Weight: 77.519 kg - Exam General: Alert, Oriented, Mild Distress Neck: Supple Lungs: Clear to Auscultation, Normal Respiratory Effort Cardiovascular: Regular Rate, Regular Rhythm GI/Abdominal Exam: Normal Bowel Sounds, Soft, Non-Tender. No: Hepatomegaly, Splenomegaly Back Exam: Normal Inspection, Decreased Range of Motion, Paraspinal Tenderness Extremities: Normal Inspection, Normal Range of Motion - Patient Data Lab Results Last 24 hrs: Laboratory Results - last 24 hr 03/02/21 03/02/21 03/02/21 Range/Units 06:57 06:57 09:21 WBC 17.77 H (4.0-11.0) K/uL RBC 3.87 L (4.30-5.90) M/uL Hgb 10.1 L (12.0-16.0) g/dL Hct 30.5 L (36.0-46.0) % MCV 78.8 L (80.0-98.0) fL MCH 26.1 L (27.0-32.0) pg MCHC 33.1 (31.0-37.0) g/dL RDW Std Deviation 49.0 (28.0-62.0) fl RDW Coeff of Masoud 17 H (11.0-15.0) % Plt Count 492 H (150-400) K/uL MPV 8.40 (7.40-12.00) fL Neut % (Auto) 82.9 H (48.0-80.0) % Lymph % (Auto) 8.4 L (16.0-40.0) % [place] % (Auto) 8.4 (0.0-15.0) % Eos % (Auto) 0.1 (0.0-7.0) % Baso % (Auto) 0.2 (0.0-1.5) % Neut # (Auto) 14.7 H (1.4-5.7) K/uL Lymph # (Auto) 1.5 (0.6-2.4) K/uL [place] # (Auto) 1.5 H (0.0-0.8) K/uL Eos # (Auto) 0.0 (0.0-0.7) K/uL Baso # (Auto) 0.0 (0.0-0.1) K/uL Nucleated RBC % 0.0 /100WBC Nucleated RBCs # 0 K/uL Sodium 130 L (136-145) mmol/L Potassium 3.5 (3.5-5.1) mmol/L Chloride 91 L (98-107) mmol/L Carbon Dioxide 22.5 (21.0-32.0) mmol/L BUN 23 H (7.0-18.0) mg/dL Creatinine 2.0 H (0.6-1.0) mg/dL Est Cr Clr Drug Dosing 18.87 mL/min Estimated GFR (MDRD) 24.0 ml/min Glucose 192 H (74-106) mg/dL Calcium 9.4 (8.5-10.1) mg/dL Magnesium 1.8 (1.8-2.4) mg/dL Total Bilirubin 0.2 (0.2-1.0) mg/dL AST 19 (15-37) IU/L ALT 13 L (14-63) IU/L Alkaline Phosphatase 144 H (46-116) U/L Total Protein 7.2 (6.4-8.2) g/dL Albumin 2.2 L (3.4-5.0) g/dL Globulin 5.0 H (2.6-4.0) g/dL Albumin/Globulin Ratio 0.4 L (0.9-1.6) Influenza Type A RNA NEGATIVE (NEGATIVE) Influenza Type B RNA NEGATIVE (NEGATIVE) SARS-CoV-2 RNA (RUPINDER) NEGATIVE (NEGATIVE) Result Diagrams: 03/02/21 06:57 03/02/21 06:57 Sepsis Event Note - Evaluation Sepsis Screening Result: No Definite Risk - Focused Exam Vital Signs: Vital Signs Temp Pulse Resp BP Pulse Ox 03/02/21 11:16 36.6 C 108 H 18 135/78 98 03/02/21 10:34 98 18 133/59 L 97 03/02/21 06:42 36.6 C 110 H 18 144/69 H 96 - Problem List (1) Diarrhea SNOMED Code(s): 02177515 ICD Code: R19.7 - DIARRHEA, UNSPECIFIED Status: Acute Current Visit: Yes (2) Abdominal mass SNOMED Code(s): 920513324 ICD Code: R19.00 - INTRA-ABD AND PELVIC SWELLING, MASS AND LUMP, UNSP SITE Status: Acute Current Visit: Yes (3) Type 2 diabetes mellitus SNOMED Code(s): 50671233 ICD Code: E11.9 - TYPE 2 DIABETES MELLITUS WITHOUT COMPLICATIONS Status: Acute Current Visit: No (4) UTI (urinary tract infection) SNOMED Code(s): 39710323 ICD Code: N39.0 - URINARY TRACT INFECTION, SITE NOT SPECIFIED Status: Acute Current Visit: No Qualifiers: Urinary tract infection type: acute cystitis Hematuria presence: without hematuria Qualified Code(s): N30.00 - Acute cystitis without hematuria Problem List Initiated/Reviewed/Updated: Yes Orders Last 24hrs: Active Orders 24 hr Category Date Time Status Patient Status [ADT] Routine ADT 03/02/21 09:25 Active EKG 12 Lead [EKG Documentation Completion] [RC] STAT Care 03/02/21 07:24 Active Notify Provider Consults [RC] ASDIRECTED Care 03/02/21 09:25 Active Telemetry Monitoring [Cardiac Monitoring] [RC] Q8H Care 03/02/21 09:40 Active Consult to Physician [CONS] Stat Cons 03/02/21 09:24 Active Abdomen w Cont [MR] Stat Exams 03/02/21 09:26 Ordered UA W/WANG RFLX IF INDICATED [URIN] Stat Lab 03/02/21 06:47 Ordered Assessment/Plan Comment:: 80 y/o F admitted for N/V diarrhea and back pain Was found incidentaaly to have a huge retroperitneal mass renal cell ca vs colon ca vs hematoma, AAA rupture unlikely patient is hemodynamically stable as of now and back pain is chronic in nature start IV fluids Rcheck Hb in evening zofran for N/V Morphine for back pain SCD for dvt ppx Check CEA MRI vs CT with contrast of abdomen in AM.
[2021-03-02] MEDS ORDERED: Lactated Ringers 1,000 ML IV ONE (11:45)
[2021-03-02] MEDS ORDERED: Lactated Ringers 1,000 ML IV SCH (11:45)
[2021-03-02] MEDS ORDERED: 50% Dextrose in Water 50 ML Syringe IV PRN (11:47)
[2021-03-02] MEDS ORDERED: Glucagon,Human Recombinant 1 MG Vial IM PRN (11:47)
[2021-03-02] MEDS: Pantoprazole 40 MG in Sodium Chloride 0.9% 10 ML IV SCH ×2 (12:21→20:54)
--- NOTE | 2021-03-02 12:58 | PCM.SN.2 ---
- Free Text/Narrative Note: pt seen, chart reviewed; await mri w contrast to delineate the soft tissue mass L psoas, as well as L kidney 3.8cm mass; will also draw a cea level tomorrow; consult note dictated; will follow pt w you; [id number]
[2021-03-02] MEDS: Lactated Ringers 1,000 ML IV SCH ×2 (13:54→21:54)
[2021-03-02] MEDS: Acetaminophen/Codeine 300-30 MG Tab PO PRN (14:55)
--- NOTE | 2021-03-02 15:03 | CONS ---
DATE OF CONSULTATION: 03/02/2021 DATE OF : 1940 PRIMARY CARE PHYSICIAN: Perez Coppola M.D. Consult from Dr. Matos, the hospitalists. CONCERNING QUESTION: Abnormal CAT scan. HISTORY OF PRESENT ILLNESS: The patient is a 80-year-old lady seen in emergency room for 4-day history of diarrhea and abdominal cramps with some nausea and emesis. The patient had a fall in November and also noted to have positive troponin at that time, but the patient denies any abdominal pain. Well-formed stool was one week ago. The patient also complained of poor appetite and there is no appetite to eat or taste any food and lost about 40 pounds in the last 3 months. ALLERGIES: Please refer to nursing for details. MEDICATION: Please refer to nursing for details. FAMILY HISTORY: Noncontributory. PAST SURGICAL HISTORY: Cataract surgery, appendectomy, and cholecystectomy. PAST MEDICAL HISTORY: Significant for diabetes, hypertension, and no CVA. PHYSICAL EXAMINATION: GENERAL: A very pleasant lady, very polite and cooperating with examination. HEENT: Normocephalic and atraumatic. Sclerae anicteric. LUNGS: Clear to auscultation. HEART: Regular rate and rhythm. ABDOMEN: Soft, nondistended. No pulsating tender midline abdominal structure and no palpable mass. Well-healed transverse incision on the right upper quadrant and no palpable mass. No hernia. Nontender. Even on the Valsalva/coughing, absolutely nontender. LABORATORY DATA: Upon consultation, white count is 17.77, H and H of 10 and 30.5, and platelets is 492. Sodium is 130, potassium 3.5, BUN is 23, creatinine is 2.0, glucose is 192. Troponin was 0.436 in November. Albumin is 2.2 today. COVID is negative today. A CT of abdomen and pelvis without contrast significant for 14 cm X 11cm with a transverse diameter 11 cm and diffuse atherosclerotic vascular calcification as well as mitral valve calcification. Recommend MRI with contrast for delineation of the mass. At the same time, patient also has a 3.8 cm solid mass on the left kidney. 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 Await MRI study tomorrow, and for the time being, the patient does not have any nausea, vomiting, or abdominal pain. We will follow the patient with you. ANGELIA GODINEZ /[id number] MTDD
[2021-03-02] MEDS: Piperacillin/Tazobactam 3.375 GM in Sodium Chloride 0.9% 50 ML IV SCH (16:55)
[2021-03-02] MEDS: Insulin Aspart 100 Units/ML 3 ML Pen SUBCUT SCH (17:10)
[2021-03-02] MEDS: Morphine 2 MG/ML SYRINGE IVPUSH PRN (17:51)
[2021-03-02] MEDS: traZODone 50 MG Tab PO SCH (20:57)
[2021-03-02] MEDS ORDERED: Pantoprazole 40 MG Vial IV SCH (21:00)
[2021-03-02] MEDS ORDERED: Morphine 4 MG/ML Syringe IVPUSH ONE (21:42)
[2021-03-02] MEDS ORDERED: LORazepam 2 MG/ML SDV IVPUSH ONE (23:57)
[2021-03-03] MEDS ORDERED: HYDROmorphone 1 MG/ML Syringe IVPUSH ONE (00:15)
[2021-03-03] MEDS: Lidocaine 5% 700 MG Patch TRDERM SCH ×2 (01:03→23:41)
[2021-03-03] MEDS: Piperacillin/Tazobactam 3.375 GM in Sodium Chloride 0.9% 50 ML IV SCH ×3 (01:03→16:36)
--- NOTE | 2021-03-03 02:33 | CT ---
INDICATION: Worsening back abdominal pain TECHNIQUE: CT Abdomen and pelvis without i.v. contrast. Coronal and sagittal reformats were obtained. COMPARISON: 03/02/2021 FINDINGS: Lower chest: A trace left pleural effusion is noted. Liver: Unremarkable. Spleen: Unremarkable. Pancreas: Unremarkable. Gallbladder: Previous cholecystectomy noted without significant intra- or extrahepatic biliary ductal dilatation seen. Kidney: The left kidney is displaced laterally by the retroperitoneal mass. There is a nearly isodense lesion in the posterior mid zone of the left kidney measuring 3.8 cm. Mild fluid or edema is present within the perinephric spaces bilaterally, similar to prior exam. Adrenal: Unremarkable. Bowel: Unremarkable. The appendix is normal in appearance and size. Vascular: Moderate diffuse atherosclerotic calcifications of the abdominal aorta and its tributaries are present. Lymph: Unremarkable. Peritoneum: There is a large predominantly low-density mass in the left retroperitoneum abutting the abdominal aorta and psoas muscle measuring 12.3 x 8 cm. No pneumoperitoneum is seen. No significant ascites is noted. Pelvis: Unremarkable. Soft tissue: Unremarkable. Bone: Moderate levoscoliosis is noted with associated facet arthritis and degenerative disc disease. IMPRESSIONS: 1. There is a large predominantly low-density mass in the left retroperitoneum abutting the abdominal aorta and psoas muscle measuring 12.3 x 8 cm. The appearance is unchanged from prior examination and previous recommendation for contrast-enhanced imaging his reiterated. 2. There is a nearly isodense lesion in the posterior mid zone of the left kidney measuring 3.8 cm. The appearance is unchanged but incompletely assessed without intravenous contrast. 3. A trace left pleural effusion is noted. Dictated by Jonh Ward MD @ 03/03/2021 2:32:05 AM Please note that all CT scans at this facility use dose modulation, iterative reconstruction, and/or weight-based dosing when appropriate to reduce radiation dose to as low as reasonably achievable. Dictated by: Jonh Ward MD @ 03/03/2021 02:32:07 (Electronically Signed)
[2021-03-03 06:10] LABS: POTASSIUM,K 3.3 mmol/L (3.5-5.1)
[2021-03-03] MEDS: Insulin Aspart 100 Units/ML 3 ML Pen SUBCUT SCH ×3 (06:34→19:22)
[2021-03-03] MEDS: Morphine 2 MG/ML SYRINGE IVPUSH PRN ×3 (07:22→22:19)
[2021-03-03] MEDS: Pantoprazole 40 MG in Sodium Chloride 0.9% 10 ML IV SCH ×2 (08:47→22:00)
[2021-03-03] MEDS: Acetaminophen/Codeine 300-30 MG Tab PO PRN ×2 (08:48→18:10)
[2021-03-03] MEDS ORDERED: Magnesium Sulfate/Water 2 GM/50 ML BAG IV ONE (09:46)
--- NOTE | 2021-03-03 09:49 | MR ---
INDICATION: Retropharyngeal mass seen on CT. GFR 22.7 TECHNIQUE: Multiplanar imaging of the abdomen was performed without IV contrast material. COMPARISON: Abdomen/pelvis CT of 03/03/2021 FINDINGS: A nonspecific 13 x 11 x 7 cm left retroperitoneal mass situated between the left kidney and spine is again demonstrated. On T2-weighted images, and this lesion is increased in signal and in the periphery of the lesion the signal is of medium intensity. This lesion demonstrates no diffusion restriction. Adjacent to this lesion along the posterior margin of the mid left kidney is a circumscribed 4.5 x 3.5 x 3.5 cm mass with similar signal characteristics and an additional similar 3 x 2 x 2 cm lesions demonstrated lung the margin of the lateral aspect of the upper left kidney. On CT, these lesions all have water-attenuation, suggesting fluid collections present The kidneys are otherwise grossly negative. No hydronephrosis is evident. The liver normal in size, shape and signal. Post op changes of cholecystectomy are again demonstrated. No bile duct dilation is evident. The spleen, adrenal glands and pancreas appear to be within normal limits. No lymphadenopathy or free fluid is evident. No bowel abnormality is demonstrated. A tiny left-sided pleural effusion is again noted. IMPRESSION: 1. Nonspecific 13 x 11 x 7 cm retroperitoneal mass situated between the left kidney and spine as well as additional 4.5 x 3.5 x 3.5 cm and 3 x 2 x 2 cm masses with similar signal along the margin of the left kidney, as above. Given the low attenuation of the lesions on CT, question fluid collections or very necrotic masses with central fluid. Ultrasound suggested. 2. Tiny left pleural effusion. Dictated by Enrique Baker MD @ 03/03/2021 9:48:[address] Enrique Baker @ Mar 03 2021 9:48AM
--- NOTE | 2021-03-03 09:51 | PCM.SURGPN ---
- General Info Date of Service: 03/03/21 Functional Status: Reports: Pain Controlled (overnight result noted; pain is well control this morning w morphine) - Review of Systems General: Reports: No Symptoms Gastrointestinal: Reports: No Symptoms - Patient Data Vitals - Most Recent: Last Vital Signs Temp 96.6 F L 03/03/21 08:00 Pulse 105 H 03/03/21 08:00 Resp 22 H 03/03/21 08:00 BP 145/67 H 03/03/21 08:00 Pulse Ox 97 03/03/21 08:00 Weight - Most Recent: 170 lb 14.4 oz I&O - Last 24 Hours: Intake & Output 03/02/21 03/03/21 03/03/21 22:59 06:59 14:59 Intake Total 1371 900 Output Total 0 250 Balance 1371 650 Lab Results Last 24 Hrs: Laboratory Results - last 24 hr 03/02/21 03/02/21 03/02/21 Range/Units 05:56 09:21 12:10 WBC (4.0-11.0) K/uL RBC (4.30-5.90) M/uL Hgb (12.0-16.0) g/dL Hct (36.0-46.0) % MCV (80.0-98.0) fL MCH (27.0-32.0) pg MCHC (31.0-37.0) g/dL RDW Std Deviation (28.0-62.0) fl RDW Coeff of Masoud (11.0-15.0) % Plt Count (150-400) K/uL MPV (7.40-12.00) fL Neut % (Auto) (48.0-80.0) % Lymph % (Auto) (16.0-40.0) % [place] % (Auto) (0.0-15.0) % Eos % (Auto) (0.0-7.0) % Baso % (Auto) (0.0-1.5) % Neut # (Auto) (1.4-5.7) K/uL Lymph # (Auto) (0.6-2.4) K/uL [place] # (Auto) (0.0-0.8) K/uL Eos # (Auto) (0.0-0.7) K/uL Baso # (Auto) (0.0-0.1) K/uL Nucleated RBC % /100WBC Nucleated RBCs # K/uL INR Lactate (0.20-2.00) mmol/L Sodium (136-145) mmol/L Potassium (3.5-5.1) mmol/L Chloride (98-107) mmol/L Carbon Dioxide (21.0-32.0) mmol/L BUN (7.0-18.0) mg/dL Creatinine (0.6-1.0) mg/dL Est Cr Clr Drug Dosing mL/min Estimated GFR (MDRD) ml/min Glucose (74-106) mg/dL POC Glucose 171 H (70-99) mg/dL Calcium (8.5-10.1) mg/dL Phosphorus (2.6-4.7) mg/dL Magnesium (1.8-2.4) mg/dL Total Bilirubin (0.2-1.0) mg/dL AST (15-37) IU/L ALT (14-63) IU/L Alkaline Phosphatase (46-116) U/L Total Protein (6.4-8.2) g/dL Albumin (3.4-5.0) g/dL Globulin (2.6-4.0) g/dL Albumin/Globulin Ratio (0.9-1.6) Lipase 107 (73-393) U/L Carcinoembryonic Ag ng/mL Urine Color Urine Appearance Urine pH (5.0-8.0) Ur Specific [place] (1.001-1.035) Urine Protein (NEGATIVE) mg/dL Urine Glucose (UA) (NEGATIVE) mg/dL Urine Ketones (NEGATIVE) mg/dL Urine Occult Blood (NEGATIVE) Urine Nitrite (NEGATIVE) Urine Bilirubin (NEGATIVE) Urine Urobilinogen (<2.0) EU/dL Ur Leukocyte Esterase (NEGATIVE) Urine RBC (0-2/HPF) Urine WBC (0-5/HPF) Ur Epithelial Cells (NONE-FEW) Amorphous Sediment (NEGATIVE) Urine Bacteria (NEGATIVE) Urine Mucus (NONE-MOD) Influenza Type A RNA NEGATIVE (NEGATIVE) Influenza Type B RNA NEGATIVE (NEGATIVE) SARS-CoV-2 RNA (RUPINDER) NEGATIVE (NEGATIVE) Blood Type Antibody Screen Crossmatch 03/02/21 03/02/21 03/02/21 Range/Units 12:45 16:35 17:03 WBC (4.0-11.0) K/uL RBC (4.30-5.90) M/uL Hgb (12.0-16.0) g/dL Hct (36.0-46.0) % MCV (80.0-98.0) fL MCH (27.0-32.0) pg MCHC (31.0-37.0) g/dL RDW Std Deviation (28.0-62.0) fl RDW Coeff of Masoud (11.0-15.0) % Plt Count (150-400) K/uL MPV (7.40-12.00) fL Neut % (Auto) (48.0-80.0) % Lymph % (Auto) (16.0-40.0) % [place] % (Auto) (0.0-15.0) % Eos % (Auto) (0.0-7.0) % Baso % (Auto) (0.0-1.5) % Neut # (Auto) (1.4-5.7) K/uL Lymph # (Auto) (0.6-2.4) K/uL [place] # (Auto) (0.0-0.8) K/uL Eos # (Auto) (0.0-0.7) K/uL Baso # (Auto) (0.0-0.1) K/uL Nucleated RBC % /100WBC Nucleated RBCs # K/uL INR Lactate 1.1 (0.20-2.00) mmol/L Sodium (136-145) mmol/L Potassium (3.5-5.1) mmol/L Chloride (98-107) mmol/L Carbon Dioxide (21.0-32.0) mmol/L BUN (7.0-18.0) mg/dL Creatinine (0.6-1.0) mg/dL Est Cr Clr Drug Dosing mL/min Estimated GFR (MDRD) ml/min Glucose (74-106) mg/dL POC Glucose 83 (70-99) mg/dL Calcium (8.5-10.1) mg/dL Phosphorus (2.6-4.7) mg/dL Magnesium (1.8-2.4) mg/dL Total Bilirubin (0.2-1.0) mg/dL AST (15-37) IU/L ALT (14-63) IU/L Alkaline Phosphatase (46-116) U/L Total Protein (6.4-8.2) g/dL Albumin (3.4-5.0) g/dL Globulin (2.6-4.0) g/dL Albumin/Globulin Ratio (0.9-1.6) Lipase (73-393) U/L Carcinoembryonic Ag ng/mL Urine Color YELLOW Urine Appearance SLT CLOUDY Urine pH 5.5 (5.0-8.0) Ur Specific [place] 1.025 (1.001-1.035) Urine Protein 100 H (NEGATIVE) mg/dL Urine Glucose (UA) NEGATIVE (NEGATIVE) mg/dL Urine Ketones TRACE H (NEGATIVE) mg/dL Urine Occult Blood MODERATE H (NEGATIVE) Urine Nitrite NEGATIVE (NEGATIVE) Urine Bilirubin NEGATIVE (NEGATIVE) Urine Urobilinogen 0.2 (<2.0) EU/dL Ur Leukocyte Esterase LARGE H (NEGATIVE) Urine RBC 1-2 (0-2/HPF) Urine WBC 350-400 (0-5/HPF) Ur Epithelial Cells RARE (NONE-FEW) Amorphous Sediment FEW (NEGATIVE) Urine Bacteria 2+ H (NEGATIVE) Urine Mucus FEW (NONE-MOD) Influenza Type A RNA (NEGATIVE) Influenza Type B RNA (NEGATIVE) SARS-CoV-2 RNA (RUPINDER) (NEGATIVE) Blood Type Antibody Screen Crossmatch 03/03/21 03/03/21 03/03/21 Range/Units 00:15 00:50 01:25 WBC (4.0-11.0) K/uL RBC (4.30-5.90) M/uL Hgb 7.9 L (12.0-16.0) g/dL Hct 23.7 L (36.0-46.0) % MCV (80.0-98.0) fL MCH (27.0-32.0) pg MCHC (31.0-37.0) g/dL RDW Std Deviation (28.0-62.0) fl RDW Coeff of Masoud (11.0-15.0) % Plt Count (150-400) K/uL MPV (7.40-12.00) fL Neut % (Auto) (48.0-80.0) % Lymph % (Auto) (16.0-40.0) % [place] % (Auto) (0.0-15.0) % Eos % (Auto) (0.0-7.0) % Baso % (Auto) (0.0-1.5) % Neut # (Auto) (1.4-5.7) K/uL Lymph # (Auto) (0.6-2.4) K/uL [place] # (Auto) (0.0-0.8) K/uL Eos # (Auto) (0.0-0.7) K/uL Baso # (Auto) (0.0-0.1) K/uL Nucleated RBC % /100WBC Nucleated RBCs # K/uL INR 1.09 Lactate (0.20-2.00) mmol/L Sodium (136-145) mmol/L Potassium (3.5-5.1) mmol/L Chloride (98-107) mmol/L Carbon Dioxide (21.0-32.0) mmol/L BUN (7.0-18.0) mg/dL Creatinine (0.6-1.0) mg/dL Est Cr Clr Drug Dosing mL/min Estimated GFR (MDRD) ml/min Glucose (74-106) mg/dL POC Glucose (70-99) mg/dL Calcium (8.5-10.1) mg/dL Phosphorus (2.6-4.7) mg/dL Magnesium (1.8-2.4) mg/dL Total Bilirubin (0.2-1.0) mg/dL AST (15-37) IU/L ALT (14-63) IU/L Alkaline Phosphatase (46-116) U/L Total Protein (6.4-8.2) g/dL Albumin (3.4-5.0) g/dL Globulin (2.6-4.0) g/dL Albumin/Globulin Ratio (0.9-1.6) Lipase (73-393) U/L Carcinoembryonic Ag ng/mL Urine Color Urine Appearance Urine pH (5.0-8.0) Ur Specific [place] (1.001-1.035) Urine Protein (NEGATIVE) mg/dL Urine Glucose (UA) (NEGATIVE) mg/dL Urine Ketones (NEGATIVE) mg/dL Urine Occult Blood (NEGATIVE) Urine Nitrite (NEGATIVE) Urine Bilirubin (NEGATIVE) Urine Urobilinogen (<2.0) EU/dL Ur Leukocyte Esterase (NEGATIVE) Urine RBC (0-2/HPF) Urine WBC (0-5/HPF) Ur Epithelial Cells (NONE-FEW) Amorphous Sediment (NEGATIVE) Urine Bacteria (NEGATIVE) Urine Mucus (NONE-MOD) Influenza Type A RNA (NEGATIVE) Influenza Type B RNA (NEGATIVE) SARS-CoV-2 RNA (RUPINDER) (NEGATIVE) Blood Type B POSITIVE Antibody Screen NEGATIVE Crossmatch See Detail 03/03/21 03/03/21 03/03/21 Range/Units 05:27 05:27 06:07 WBC 18.18 H (4.0-11.0) K/uL RBC 3.56 L (4.30-5.90) M/uL Hgb 9.6 L (12.0-16.0) g/dL Hct 29.0 L (36.0-46.0) % MCV 81.5 (80.0-98.0) fL MCH 27.0 (27.0-32.0) pg MCHC 33.1 (31.0-37.0) g/dL RDW Std Deviation 53.6 (28.0-62.0) fl RDW Coeff of Masoud 18 H (11.0-15.0) % Plt Count 499 H (150-400) K/uL MPV 8.20 (7.40-12.00) fL Neut % (Auto) 84.4 H (48.0-80.0) % Lymph % (Auto) 8.4 L (16.0-40.0) % [place] % (Auto) 6.7 (0.0-15.0) % Eos % (Auto) 0.4 (0.0-7.0) % Baso % (Auto) 0.1 (0.0-1.5) % Neut # (Auto) 15.3 H (1.4-5.7) K/uL Lymph # (Auto) 1.5 (0.6-2.4) K/uL [place] # (Auto) 1.2 H (0.0-0.8) K/uL Eos # (Auto) 0.1 (0.0-0.7) K/uL Baso # (Auto) 0.0 (0.0-0.1) K/uL Nucleated RBC % 0.0 /100WBC Nucleated RBCs # 0 K/uL INR Lactate (0.20-2.00) mmol/L Sodium 132 L (136-145) mmol/L Potassium 3.3 L (3.5-5.1) mmol/L Chloride 95 L (98-107) mmol/L Carbon Dioxide 24.0 (21.0-32.0) mmol/L BUN 23 H (7.0-18.0) mg/dL Creatinine 2.1 H (0.6-1.0) mg/dL Est Cr Clr Drug Dosing 17.97 mL/min Estimated GFR (MDRD) 22.7 ml/min Glucose 107 H (74-106) mg/dL POC Glucose 107 H (70-99) mg/dL Calcium 8.8 (8.5-10.1) mg/dL Phosphorus 3.9 (2.6-4.7) mg/dL Magnesium 1.5 L (1.8-2.4) mg/dL Total Bilirubin 0.2 (0.2-1.0) mg/dL AST 28 (15-37) IU/L ALT 14 (14-63) IU/L Alkaline Phosphatase 120 H (46-116) U/L Total Protein 6.8 (6.4-8.2) g/dL Albumin 1.6 L (3.4-5.0) g/dL Globulin 5.2 H (2.6-4.0) g/dL Albumin/Globulin Ratio 0.3 L (0.9-1.6) Lipase (73-393) U/L Carcinoembryonic Ag 0.5 ng/mL Urine Color Urine Appearance Urine pH (5.0-8.0) Ur Specific [place] (1.001-1.035) Urine Protein (NEGATIVE) mg/dL Urine Glucose (UA) (NEGATIVE) mg/dL Urine Ketones (NEGATIVE) mg/dL Urine Occult Blood (NEGATIVE) Urine Nitrite (NEGATIVE) Urine Bilirubin (NEGATIVE) Urine Urobilinogen (<2.0) EU/dL Ur Leukocyte Esterase (NEGATIVE) Urine RBC (0-2/HPF) Urine WBC (0-5/HPF) Ur Epithelial Cells (NONE-FEW) Amorphous Sediment (NEGATIVE) Urine Bacteria (NEGATIVE) Urine Mucus (NONE-MOD) Influenza Type A RNA (NEGATIVE) Influenza Type B RNA (NEGATIVE) SARS-CoV-2 RNA (RUPINDER) (NEGATIVE) Blood Type Antibody Screen Crossmatch Cipriano Results Last 24 Hrs: Microbiology 03/02/21 12:55 Anaerobic Blood Culture - Final Blood - Venous - Lab Draw Med Orders - Current: Current Medications Acetaminophen (Acetaminophen 325 Mg Tab) 650 mg PO Q4H PRN PRN Reason: Fever Last Admin: 03/02/21 19:20 Dose: 650 mg Documented by: Acetaminophen/Codeine Phosphate (Acetaminophen/Codeine 300-30 Mg Tab) 1 tab PO QID PRN PRN Reason: Pain Last Admin: 03/03/21 08:48 Dose: 1 tab Documented by: Albuterol/Ipratropium (Albuterol/Ipratropium 3.0-0.5 Mg/3 Ml Neb Soln) 3 ml NEB Q4HRRT PRN PRN Reason: Shortness Of Breath/wheezing Dextrose/Water (50% Dextrose In Water 50 Ml Syringe) 50 ml IV ASDIRECTED PRN PRN Reason: Hypoglycemia Glucagon (Glucagon,Human Recombinant 1 Mg Vial) 1 mg IM ASDIRECTED PRN PRN Reason: Hypoglycemia Piperacillin Sod/Tazobactam (Sod 3.375 gm/ Sodium Chloride) 50 mls @ 100 mls/hr IV Q8H DARCY Last Admin: 03/03/21 08:48 Dose: 100 mls/hr Documented by: Pantoprazole Sodium 40 mg/ (Sodium Chloride) 10 mls @ 200 mls/hr IV Q12HR DARCY Last Admin: 03/03/21 08:47 Dose: 200 mls/hr Documented by: Lactated Ringer's (Ringers, Lactated) 1,000 mls @ 125 mls/hr IV Q8H [facility] Last Admin: 03/02/21 21:54 Dose: 125 mls/hr Documented by: Insulin Aspart (Insulin Aspart 100 Units/Ml 3 Ml Pen) 0 unit SUBCUT TIDAC [facility]; Protocol Last Admin: 03/03/21 06:34 Dose: Not Given Documented by: Lidocaine (Lidocaine 5% 700 Mg Patch) 700 mg TRDERM Q24H DARCY Last Admin: 03/03/21 01:03 Dose: 700 mg Documented by: Miscellaneous Information (Remove Patch) 1 ea TRDERM Q24H DARCY Morphine Sulfate (Morphine 2 Mg/Ml Syringe) 1 mg IVPUSH Q4H PRN PRN Reason: Pain (severe 7-10) Last Admin: 03/03/21 07:22 Dose: 1 mg Documented by: Ondansetron HCl (Ondansetron 4 Mg/2 Ml Sdv) 4 mg IVPUSH Q4H PRN PRN Reason: Nausea/Vomiting Trazodone HCl (Trazodone 50 Mg Tab) 50 mg PO BEDTIME DARCY Last Admin: 03/02/21 20:57 Dose: 50 mg Documented by: Discontinued Medications Acetaminophen (Acetaminophen 325 Mg Tab) 650 mg PO Q4H PRN PRN Reason: Pain (Mild 1-3)/fever Hydromorphone HCl (Hydromorphone 1 Mg/Ml Syringe) 1 mg IVPUSH ONETIME ONE Stop: 03/03/21 00:16 Last Admin: 03/03/21 01:09 Dose: 1 mg Documented by: Piperacillin Sod/Tazobactam (Sod 3.375 gm/ Sodium Chloride) 50 mls @ 100 mls/hr IV ONETIME ONE Stop: 03/02/21 09:53 Last Admin: 03/02/21 09:44 Dose: 100 mls/hr Documented by: Sodium Chloride (Normal Saline) 1,000 mls @ 1,000 mls/hr IV .Bolus ONE Stop: 03/02/21 10:34 Last Admin: 03/02/21 09:44 Dose: 1,000 mls/hr Documented by: Lactated Ringer's (Ringers, Lactated) 1,000 mls @ 999 mls/hr IV .BOLUS ONE Stop: 03/02/21 12:45 Last Admin: 03/02/21 12:25 Dose: 999 mls/hr Documented by: Ketorolac Tromethamine (Ketorolac 30 Mg/Ml Sdv) 30 mg IVPUSH ONETIME ONE Stop: 03/02/21 07:33 Last Admin: 03/02/21 07:43 Dose: 30 mg Documented by: Lorazepam (Lorazepam 2 Mg/Ml Sdv) 1 mg IVPUSH ONETIME ONE Stop: 03/02/21 23:58 Last Admin: 03/03/21 01:07 Dose: 1 mg Documented by: Morphine Sulfate (Morphine 4 Mg/Ml Syringe) 4 mg IVPUSH ONETIME ONE Stop: 03/02/21 21:43 Last Admin: 03/02/21 22:21 Dose: 4 mg Documented by: - Exam GI/Abdominal Exam: Normal Bowel Sounds, Soft Sepsis Event Note - Evaluation Sepsis Screening Result: Sepsis Risk - Focused Exam Vital Signs: Vital Signs Temp Temp Pulse Resp BP Pulse Ox 03/03/21 08:00 96.6 F L 105 H 22 H 145/67 H 97 03/03/21 05:24 97 F 104 H 18 94 L 03/03/21 03:16 97.6 F 108 H 14 122/58 L 93 L 03/03/21 03:01 97.9 F 111 H 14 121/56 L 92 L 03/02/21 23:48 98.8 F 93 18 133/61 95 - Problem List Review Problem List Initiated/Reviewed/Updated: Yes - My Orders Last 24 Hours: Active Orders 24 hr Category Date Time Status Patient Status [ADT] Routine ADT 03/02/21 09:25 Active Ambulate [RC] ASDIRECTED Care 03/02/21 11:42 Active Antiembolic Devices [RC] PER UNIT ROUTINE Care 03/02/21 11:43 Active Intake and Output Strict [RC] Q12H Care 03/03/21 02:38 Active Notify Provider Consults [RC] ASDIRECTED Care 03/02/21 09:25 Active Oxygen Therapy [RC] PRN Care 03/02/21 11:43 Active RT Aerosol Therapy [RC] ASDIRECTED Care 03/02/21 11:44 Active Telemetry Monitoring [Cardiac Monitoring] [RC] Q8H Care 03/02/21 09:40 Active VTE/DVT Education [RC] PER UNIT ROUTINE Care 03/02/21 11:43 Active Vital Signs [RC] Q4H Care 03/02/21 11:43 Active Weight Daily [Height and Weight] [RC] DAILY Care 03/03/21 02:38 Active Consult to Physician [CONS] Stat Cons 03/02/21 09:24 Active Clear Liquid Diet [DIET] Diet 03/02/21 Dinner Active Abdomen wo Cont [MR] Stat Exams 03/02/21 09:26 Taken CULTURE BLOOD [BC] Stat Lab 03/02/21 12:45 Received CULTURE BLOOD [BC] Stat Lab 03/02/21 12:55 Results CULTURE URINE [RM] Routine Lab 03/02/21 16:35 Received RED BLOOD CELLS LP [BBK] Routine Lab 03/03/21 00:50 Results TYPE AND SCREEN [BBK] Routine Lab 03/03/21 00:50 Results Acetaminophen [TylenoL] Med 03/02/21 18:43 Active 650 mg PO Q4H PRN Acetaminophen/Codeine [Tylenol with Codeine No.3 300MG/ Med 03/02/21 12:00 Active 30MG] 1 tab PO QID PRN Albuterol/Ipratropium [DuoNeb 3.0-0.5 MG/3 ML] Med 03/02/21 11:42 Active 3 ml NEB Q4HRRT PRN Dextrose 50% in Water Med 03/02/21 11:47 Active 50 ml IV ASDIRECTED PRN Glucagon,Human Recombinant [GlucaGen] Med 03/02/21 11:47 Active 1 mg IM ASDIRECTED PRN Insulin Aspart [NovoLOG] Med 03/02/21 17:00 Active See Protocol SUBCUT TIDAC Lactated Ringers [Ringers, Lactated] 1,000 ml Med 03/02/21 12:45 Active IV Q8H Lidocaine 5% [Lidoderm 5%] Med 03/02/21 23:45 Active 700 mg TRDERM Q24H Morphine Med 03/02/21 17:19 Active 1 mg IVPUSH Q4H PRN Ondansetron [Zofran] Med 03/02/21 11:42 Active 4 mg IVPUSH Q4H PRN Pantoprazole [ProTONIX IV] 40 mg Med 03/02/21 12:00 Active Sodium Chloride 0.9% [Normal Saline] 10 ml IV Q12HR Piperacillin/Tazobactam [Piperacil-Tazobact] 3.375 gm Med 03/02/21 17:00 Active Sodium Chloride 0.9% [Normal Saline] 50 ml IV Q8H Remove Patch Med 03/03/21 11:45 Active 1 ea TRDERM Q24H traZODone Med 03/02/21 21:00 Active 50 mg PO BEDTIME Blood Culture x2 Reflex Set [OM.PC] Stat Oth 03/02/21 11:44 Ordered Sequential Compression Device [OM.PC] Per Unit Routine Oth 03/02/21 11:43 Ordered Transfuse Red Blood Cells [COMM] Routine Oth 03/03/21 00:52 Ordered Resuscitation Status Routine Resus Stat 03/02/21 17:18 Ordered Medication Orders Acetaminophen (Acetaminophen 325 Mg Tab) 650 mg PO Q4H PRN PRN Reason: Fever Last Admin: 03/02/21 19:20 Dose: 650 mg Documented by: MIMI Acetaminophen/Codeine Phosphate (Acetaminophen/Codeine 300-30 Mg Tab) 1 tab PO QID PRN PRN Reason: Pain Last Admin: 03/03/21 08:48 Dose: 1 tab Documented by: Admin: 03/02/21 14:55 Dose: 1 tab Documented by: MIMI Albuterol/Ipratropium (Albuterol/Ipratropium 3.0-0.5 Mg/3 Ml Neb Soln) 3 ml NEB Q4HRRT PRN PRN Reason: Shortness Of Breath/wheezing Dextrose/Water (50% Dextrose In Water 50 Ml Syringe) 50 ml IV ASDIRECTED PRN PRN Reason: Hypoglycemia Glucagon (Glucagon,Human Recombinant 1 Mg Vial) 1 mg IM ASDIRECTED PRN PRN Reason: Hypoglycemia Piperacillin Sod/Tazobactam (Sod 3.375 gm/ Sodium Chloride) 50 mls @ 100 mls/hr IV Q8H [facility] Last Admin: 03/03/21 08:48 Dose: 100 mls/hr Documented by: Infusion: 03/03/21 01:33 Dose: 100 mls/hr Documented by: Admin: 03/03/21 01:03 Dose: 100 mls/hr Documented by: Infusion: 03/02/21 17:25 Dose: 100 mls/hr Documented by: Admin: 03/02/21 16:55 Dose: 100 mls/hr Documented by: MIMI Pantoprazole Sodium 40 mg/ (Sodium Chloride) 10 mls @ 200 mls/hr IV Q12HR [facility] Last Admin: 03/03/21 08:47 Dose: 200 mls/hr Documented by: Infusion: 03/02/21 20:57 Dose: 200 mls/hr Documented by: Admin: 03/02/21 20:54 Dose: 200 mls/hr Documented by: Infusion: 03/02/21 12:24 Dose: 200 mls/hr Documented by: Admin: 03/02/21 12:21 Dose: 200 mls/hr Documented by: MIMI Lactated Ringer's (Ringers, Lactated) 1,000 mls @ 125 mls/hr IV Q8H [facility] Last Admin: 03/02/21 21:54 Dose: 125 mls/hr Documented by: Infusion: 03/02/21 21:54 Dose: 125 mls/hr Documented by: Admin: 03/02/21 13:54 Dose: 125 mls/hr Documented by: MIMI Insulin Aspart (Insulin Aspart 100 Units/Ml 3 Ml Pen) 0 unit SUBCUT TIDAC [facility]; Protocol Last Admin: 03/03/21 06:34 Dose: Not Given Documented by: Admin: 03/02/21 17:10 Dose: Not Given Documented by: MIMI Lidocaine (Lidocaine 5% 700 Mg Patch) 700 mg TRDERM Q24H [facility] Last Admin: 03/03/21 01:03 Dose: 700 mg Documented by: OCTAVIO Miscellaneous Information (Remove Patch) 1 ea TRDERM Q24H [facility] Morphine Sulfate (Morphine 2 Mg/Ml Syringe) 1 mg IVPUSH Q4H PRN PRN Reason: Pain (severe 7-10) Last Admin: 03/03/21 07:22 Dose: 1 mg Documented by: Admin: 03/02/21 17:51 Dose: 1 mg Documented by: MIMI Ondansetron HCl (Ondansetron 4 Mg/2 Ml Sdv) 4 mg IVPUSH Q4H PRN PRN Reason: Nausea/Vomiting Trazodone HCl (Trazodone 50 Mg Tab) 50 mg PO BEDTIME [facility] Last Admin: 03/02/21 20:57 Dose: 50 mg Documented by: OCTAVIO - Assessment Assessment (Free Text/Narrative):: transfused 3 rbc, h/h 9.1; await mri results; possible bleeding into hematoma; would benefit from transferring to facility that has access to intervention radiology, either embolization or drainage; tks for the consult - Plan Plan (Free Text/Narrative):: transfused 3 rbc, h/h 9.1; await mri results; possible bleeding into hematoma; would benefit from transferring to facility that has access to intervention radiology, either embolization or drainage; tks for the consult
[2021-03-03] MEDS ORDERED: Potassium Chloride 10 MEQ Tab.ER PO ONE (10:00)
--- NOTE | 2021-03-03 12:24 | PCM.DCSUM1 ---
Discharge Summary - Discharge Data Discharge Disposition: Home, Self-Care 01 Condition: Stable - Referral to Home Health Primary Care Physician: Perez Coppola MD - Discharge Diagnosis/Problem(s) (1) Diarrhea SNOMED Code(s): 32112694 ICD Code: R19.7 - DIARRHEA, UNSPECIFIED Status: Acute Current Visit: Yes (2) Abdominal mass SNOMED Code(s): 393934912 ICD Code: R19.00 - INTRA-ABD AND PELVIC SWELLING, MASS AND LUMP, UNSP SITE Status: Acute Current Visit: Yes (3) Type 2 diabetes mellitus SNOMED Code(s): 40005857 ICD Code: E11.9 - TYPE 2 DIABETES MELLITUS WITHOUT COMPLICATIONS Status: Acute Current Visit: No (4) UTI (urinary tract infection) SNOMED Code(s): 98396065 ICD Code: N39.0 - URINARY TRACT INFECTION, SITE NOT SPECIFIED Status: Acute Current Visit: No Qualifiers: Urinary tract infection type: acute cystitis Hematuria presence: without hematuria Qualified Code(s): N30.00 - Acute cystitis without hematuria - Patient Summary/Data Consults: Consultations 03/02/21 09:24 Consult to Physician [CONS] Stat - Discharge Plan Home Medications: Home Meds Acarbose 50 mg PO TID 11/27/20 [History] Acetaminophen/Codeine [Tylenol with Codeine No.3 300MG/30MG] 1 tab PO QID PRN 11/27/20 [History] Furosemide 40 mg PO DAILY 11/27/20 [History] gemfibroziL [Gemfibrozil] 600 mg PO BID 11/27/20 [History] glyBURIDE [Micronase] 2.5 mg PO BIDMEALS 11/27/20 [History] lisinopriL [Prinivil] 10 mg PO DAILY 11/27/20 [History] metFORMIN [Glucophage] 500 mg PO TID 11/27/20 [History] traZODone HCl [Trazodone HCl] 50 mg PO BEDTIME 11/27/20 [History] Omeprazole 40 mg PO ACBREAKFAST 02/10/21 [History] Potassium Chloride [Klor-Con 10] 20 meq PO DAILY 03/03/21 [History] Patient Handouts: Diarrhea, Adult, [id number] Forms: ED Department Discharge Referrals: Perez Coppola MD [Primary Care Provider] - 03/10/21 9:15 am - Patient Data Vitals - Most Recent: Last Vital Signs Temp 37.0 C 03/03/21 11:59 Pulse 96 03/03/21 11:59 Resp 22 H 03/03/21 11:59 BP 142/65 H 03/03/21 11:59 Pulse Ox 94 L 03/03/21 11:59 Weight - Most Recent: 77.519 kg I&O - Last 24 hours: Intake & Output 03/02/21 03/03/21 03/03/21 22:59 06:59 14:59 Intake Total 1371 900 Output Total 0 250 Balance 1371 650 Lab Results - Last 24 hrs: Laboratory Results - last 24 hr 03/02/21 03/02/21 03/02/21 Range/Units 12:45 16:35 17:03 WBC (4.0-11.0) K/uL RBC (4.30-5.90) M/uL Hgb (12.0-16.0) g/dL Hct (36.0-46.0) % MCV (80.0-98.0) fL MCH (27.0-32.0) pg MCHC (31.0-37.0) g/dL RDW Std Deviation (28.0-62.0) fl RDW Coeff of Masoud (11.0-15.0) % Plt Count (150-400) K/uL MPV (7.40-12.00) fL Neut % (Auto) (48.0-80.0) % Lymph % (Auto) (16.0-40.0) % [place] % (Auto) (0.0-15.0) % Eos % (Auto) (0.0-7.0) % Baso % (Auto) (0.0-1.5) % Neut # (Auto) (1.4-5.7) K/uL Lymph # (Auto) (0.6-2.4) K/uL [place] # (Auto) (0.0-0.8) K/uL Eos # (Auto) (0.0-0.7) K/uL Baso # (Auto) (0.0-0.1) K/uL Nucleated RBC % /100WBC Nucleated RBCs # K/uL INR Lactate 1.1 (0.20-2.00) mmol/L Sodium (136-145) mmol/L Potassium (3.5-5.1) mmol/L Chloride (98-107) mmol/L Carbon Dioxide (21.0-32.0) mmol/L BUN (7.0-18.0) mg/dL Creatinine (0.6-1.0) mg/dL Est Cr Clr Drug Dosing mL/min Estimated GFR (MDRD) ml/min Glucose (74-106) mg/dL POC Glucose 83 (70-99) mg/dL Calcium (8.5-10.1) mg/dL Phosphorus (2.6-4.7) mg/dL Magnesium (1.8-2.4) mg/dL Total Bilirubin (0.2-1.0) mg/dL AST (15-37) IU/L ALT (14-63) IU/L Alkaline Phosphatase (46-116) U/L Total Protein (6.4-8.2) g/dL Albumin (3.4-5.0) g/dL Globulin (2.6-4.0) g/dL Albumin/Globulin Ratio (0.9-1.6) Carcinoembryonic Ag ng/mL Urine Color YELLOW Urine Appearance SLT CLOUDY Urine pH 5.5 (5.0-8.0) Ur Specific Isabella 1.025 (1.001-1.035) Urine Protein 100 H (NEGATIVE) mg/dL Urine Glucose (UA) NEGATIVE (NEGATIVE) mg/dL Urine Ketones TRACE H (NEGATIVE) mg/dL Urine Occult Blood MODERATE H (NEGATIVE) Urine Nitrite NEGATIVE (NEGATIVE) Urine Bilirubin NEGATIVE (NEGATIVE) Urine Urobilinogen 0.2 (<2.0) EU/dL Ur Leukocyte Esterase LARGE H (NEGATIVE) Urine RBC 1-2 (0-2/HPF) Urine WBC 350-400 (0-5/HPF) Ur Epithelial Cells RARE (NONE-FEW) Amorphous Sediment FEW (NEGATIVE) Urine Bacteria 2+ H (NEGATIVE) Urine Mucus FEW (NONE-MOD) Blood Type Antibody Screen Crossmatch 03/03/21 03/03/21 03/03/21 Range/Units 00:15 00:50 01:25 WBC (4.0-11.0) K/uL RBC (4.30-5.90) M/uL Hgb 7.9 L (12.0-16.0) g/dL Hct 23.7 L (36.0-46.0) % MCV (80.0-98.0) fL MCH (27.0-32.0) pg MCHC (31.0-37.0) g/dL RDW Std Deviation (28.0-62.0) fl RDW Coeff of Masoud (11.0-15.0) % Plt Count (150-400) K/uL MPV (7.40-12.00) fL Neut % (Auto) (48.0-80.0) % Lymph % (Auto) (16.0-40.0) % [place] % (Auto) (0.0-15.0) % Eos % (Auto) (0.0-7.0) % Baso % (Auto) (0.0-1.5) % Neut # (Auto) (1.4-5.7) K/uL Lymph # (Auto) (0.6-2.4) K/uL [place] # (Auto) (0.0-0.8) K/uL Eos # (Auto) (0.0-0.7) K/uL Baso # (Auto) (0.0-0.1) K/uL Nucleated RBC % /100WBC Nucleated RBCs # K/uL INR 1.09 Lactate (0.20-2.00) mmol/L Sodium (136-145) mmol/L Potassium (3.5-5.1) mmol/L Chloride (98-107) mmol/L Carbon Dioxide (21.0-32.0) mmol/L BUN (7.0-18.0) mg/dL Creatinine (0.6-1.0) mg/dL Est Cr Clr Drug Dosing mL/min Estimated GFR (MDRD) ml/min Glucose (74-106) mg/dL POC Glucose (70-99) mg/dL Calcium (8.5-10.1) mg/dL Phosphorus (2.6-4.7) mg/dL Magnesium (1.8-2.4) mg/dL Total Bilirubin (0.2-1.0) mg/dL AST (15-37) IU/L ALT (14-63) IU/L Alkaline Phosphatase (46-116) U/L Total Protein (6.4-8.2) g/dL Albumin (3.4-5.0) g/dL Globulin (2.6-4.0) g/dL Albumin/Globulin Ratio (0.9-1.6) Carcinoembryonic Ag ng/mL Urine Color Urine Appearance Urine pH (5.0-8.0) Ur Specific Isabella (1.001-1.035) Urine Protein (NEGATIVE) mg/dL Urine Glucose (UA) (NEGATIVE) mg/dL Urine Ketones (NEGATIVE) mg/dL Urine Occult Blood (NEGATIVE) Urine Nitrite (NEGATIVE) Urine Bilirubin (NEGATIVE) Urine Urobilinogen (<2.0) EU/dL Ur Leukocyte Esterase (NEGATIVE) Urine RBC (0-2/HPF) Urine WBC (0-5/HPF) Ur Epithelial Cells (NONE-FEW) Amorphous Sediment (NEGATIVE) Urine Bacteria (NEGATIVE) Urine Mucus (NONE-MOD) Blood Type B POSITIVE Antibody Screen NEGATIVE Crossmatch See Detail 03/03/21 03/03/21 03/03/21 Range/Units 05:27 05:27 06:07 WBC 18.18 H (4.0-11.0) K/uL RBC 3.56 L (4.30-5.90) M/uL Hgb 9.6 L (12.0-16.0) g/dL Hct 29.0 L (36.0-46.0) % MCV 81.5 (80.0-98.0) fL MCH 27.0 (27.0-32.0) pg MCHC 33.1 (31.0-37.0) g/dL RDW Std Deviation 53.6 (28.0-62.0) fl RDW Coeff of Masoud 18 H (11.0-15.0) % Plt Count 499 H (150-400) K/uL MPV 8.20 (7.40-12.00) fL Neut % (Auto) 84.4 H (48.0-80.0) % Lymph % (Auto) 8.4 L (16.0-40.0) % [place] % (Auto) 6.7 (0.0-15.0) % Eos % (Auto) 0.4 (0.0-7.0) % Baso % (Auto) 0.1 (0.0-1.5) % Neut # (Auto) 15.3 H (1.4-5.7) K/uL Lymph # (Auto) 1.5 (0.6-2.4) K/uL [place] # (Auto) 1.2 H (0.0-0.8) K/uL Eos # (Auto) 0.1 (0.0-0.7) K/uL Baso # (Auto) 0.0 (0.0-0.1) K/uL Nucleated RBC % 0.0 /100WBC Nucleated RBCs # 0 K/uL INR Lactate (0.20-2.00) mmol/L Sodium 132 L (136-145) mmol/L Potassium 3.3 L (3.5-5.1) mmol/L Chloride 95 L (98-107) mmol/L Carbon Dioxide 24.0 (21.0-32.0) mmol/L BUN 23 H (7.0-18.0) mg/dL Creatinine 2.1 H (0.6-1.0) mg/dL Est Cr Clr Drug Dosing 17.97 mL/min Estimated GFR (MDRD) 22.7 ml/min Glucose 107 H (74-106) mg/dL POC Glucose 107 H (70-99) mg/dL Calcium 8.8 (8.5-10.1) mg/dL Phosphorus 3.9 (2.6-4.7) mg/dL Magnesium 1.5 L (1.8-2.4) mg/dL Total Bilirubin 0.2 (0.2-1.0) mg/dL AST 28 (15-37) IU/L ALT 14 (14-63) IU/L Alkaline Phosphatase 120 H (46-116) U/L Total Protein 6.8 (6.4-8.2) g/dL Albumin 1.6 L (3.4-5.0) g/dL Globulin 5.2 H (2.6-4.0) g/dL Albumin/Globulin Ratio 0.3 L (0.9-1.6) Carcinoembryonic Ag 0.5 ng/mL Urine Color Urine Appearance Urine pH (5.0-8.0) Ur Specific Isabella (1.001-1.035) Urine Protein (NEGATIVE) mg/dL Urine Glucose (UA) (NEGATIVE) mg/dL Urine Ketones (NEGATIVE) mg/dL Urine Occult Blood (NEGATIVE) Urine Nitrite (NEGATIVE) Urine Bilirubin (NEGATIVE) Urine Urobilinogen (<2.0) EU/dL Ur Leukocyte Esterase (NEGATIVE) Urine RBC (0-2/HPF) Urine WBC (0-5/HPF) Ur Epithelial Cells (NONE-FEW) Amorphous Sediment (NEGATIVE) Urine Bacteria (NEGATIVE) Urine Mucus (NONE-MOD) Blood Type Antibody Screen Crossmatch 03/03/21 Range/Units 12:10 WBC (4.0-11.0) K/uL RBC (4.30-5.90) M/uL Hgb (12.0-16.0) g/dL Hct (36.0-46.0) % MCV (80.0-98.0) fL MCH (27.0-32.0) pg MCHC (31.0-37.0) g/dL RDW Std Deviation (28.0-62.0) fl RDW Coeff of Masoud (11.0-15.0) % Plt Count (150-400) K/uL MPV (7.40-12.00) fL Neut % (Auto) (48.0-80.0) % Lymph % (Auto) (16.0-40.0) % [place] % (Auto) (0.0-15.0) % Eos % (Auto) (0.0-7.0) % Baso % (Auto) (0.0-1.5) % Neut # (Auto) (1.4-5.7) K/uL Lymph # (Auto) (0.6-2.4) K/uL [place] # (Auto) (0.0-0.8) K/uL Eos # (Auto) (0.0-0.7) K/uL Baso # (Auto) (0.0-0.1) K/uL Nucleated RBC % /100WBC Nucleated RBCs # K/uL INR Lactate (0.20-2.00) mmol/L Sodium (136-145) mmol/L Potassium (3.5-5.1) mmol/L Chloride (98-107) mmol/L Carbon Dioxide (21.0-32.0) mmol/L BUN (7.0-18.0) mg/dL Creatinine (0.6-1.0) mg/dL Est Cr Clr Drug Dosing mL/min Estimated GFR (MDRD) ml/min Glucose (74-106) mg/dL POC Glucose 107 H (70-99) mg/dL Calcium (8.5-10.1) mg/dL Phosphorus (2.6-4.7) mg/dL Magnesium (1.8-2.4) mg/dL Total Bilirubin (0.2-1.0) mg/dL AST (15-37) IU/L ALT (14-63) IU/L Alkaline Phosphatase (46-116) U/L Total Protein (6.4-8.2) g/dL Albumin (3.4-5.0) g/dL Globulin (2.6-4.0) g/dL Albumin/Globulin Ratio (0.9-1.6) Carcinoembryonic Ag ng/mL Urine Color Urine Appearance Urine pH (5.0-8.0) Ur Specific Isabella (1.001-1.035) Urine Protein (NEGATIVE) mg/dL Urine Glucose (UA) (NEGATIVE) mg/dL Urine Ketones (NEGATIVE) mg/dL Urine Occult Blood (NEGATIVE) Urine Nitrite (NEGATIVE) Urine Bilirubin (NEGATIVE) Urine Urobilinogen (<2.0) EU/dL Ur Leukocyte Esterase (NEGATIVE) Urine RBC (0-2/HPF) Urine WBC (0-5/HPF) Ur Epithelial Cells (NONE-FEW) Amorphous Sediment (NEGATIVE) Urine Bacteria (NEGATIVE) Urine Mucus (NONE-MOD) Blood Type Antibody Screen Crossmatch WANG Results - Last 24 hrs: Microbiology 03/02/21 12:55 Anaerobic Blood Culture - Final Blood - Venous - Lab Draw Med Orders - Current: Current Medications Acetaminophen (Acetaminophen 325 Mg Tab) 650 mg PO Q4H PRN PRN Reason: Fever Last Admin: 03/02/21 19:20 Dose: 650 mg Documented by: Acetaminophen/Codeine Phosphate (Acetaminophen/Codeine 300-30 Mg Tab) 1 tab PO QID PRN PRN Reason: Pain Last Admin: 03/03/21 08:48 Dose: 1 tab Documented by: Albuterol/Ipratropium (Albuterol/Ipratropium 3.0-0.5 Mg/3 Ml Neb Soln) 3 ml NEB Q4HRRT PRN PRN Reason: Shortness Of Breath/wheezing Dextrose/Water (50% Dextrose In Water 50 Ml Syringe) 50 ml IV ASDIRECTED PRN PRN Reason: Hypoglycemia Glucagon (Glucagon,Human Recombinant 1 Mg Vial) 1 mg IM ASDIRECTED PRN PRN Reason: Hypoglycemia Piperacillin Sod/Tazobactam (Sod 3.375 gm/ Sodium Chloride) 50 mls @ 100 mls/hr IV Q8H [facility] Last Admin: 03/03/21 08:48 Dose: 100 mls/hr Documented by: Pantoprazole Sodium 40 mg/ (Sodium Chloride) 10 mls @ 200 mls/hr IV Q12HR [facility] Last Admin: 03/03/21 08:47 Dose: 200 mls/hr Documented by: Lactated Ringer's (Ringers, Lactated) 1,000 mls @ 100 mls/hr IV Q10H [facility] Insulin Aspart (Insulin Aspart 100 Units/Ml 3 Ml Pen) 0 unit SUBCUT TIDAC [facility]; Protocol Last Admin: 03/03/21 06:34 Dose: Not Given Documented by: Lidocaine (Lidocaine 5% 700 Mg Patch) 700 mg TRDERM Q24H [facility] Last Admin: 03/03/21 01:03 Dose: 700 mg Documented by: Miscellaneous Information (Remove Patch) 1 ea TRDERM Q24H [facility] Morphine Sulfate (Morphine 2 Mg/Ml Syringe) 1 mg IVPUSH Q4H PRN PRN Reason: Pain (severe 7-10) Last Admin: 03/03/21 07:22 Dose: 1 mg Documented by: Ondansetron HCl (Ondansetron 4 Mg/2 Ml Sdv) 4 mg IVPUSH Q4H PRN PRN Reason: Nausea/Vomiting Trazodone HCl (Trazodone 50 Mg Tab) 50 mg PO BEDTIME [facility] Last Admin: 03/02/21 20:57 Dose: 50 mg Documented by: Discontinued Medications Acetaminophen (Acetaminophen 325 Mg Tab) 650 mg PO Q4H PRN PRN Reason: Pain (Mild 1-3)/fever Hydromorphone HCl (Hydromorphone 1 Mg/Ml Syringe) 1 mg IVPUSH ONETIME ONE Stop: 03/03/21 00:16 Last Admin: 03/03/21 01:09 Dose: 1 mg Documented by: Piperacillin Sod/Tazobactam (Sod 3.375 gm/ Sodium Chloride) 50 mls @ 100 mls/hr IV ONETIME ONE Stop: 03/02/21 09:53 Last Admin: 03/02/21 09:44 Dose: 100 mls/hr Documented by: Sodium Chloride (Normal Saline) 1,000 mls @ 1,000 mls/hr IV .Bolus ONE Stop: 03/02/21 10:34 Last Admin: 03/02/21 09:44 Dose: 1,000 mls/hr Documented by: Lactated Ringer's (Ringers, Lactated) 1,000 mls @ 999 mls/hr IV .BOLUS ONE Stop: 03/02/21 12:45 Last Admin: 03/02/21 12:25 Dose: 999 mls/hr Documented by: Lactated Ringer's (Ringers, Lactated) 1,000 mls @ 125 mls/hr IV Q8H [facility] Last Admin: 03/02/21 21:54 Dose: 125 mls/hr Documented by: Magnesium Sulfate (Magnesium Sulfate In Water 2 Gm/50 Ml) 2 gm in 50 mls @ 50 mls/hr IV ONETIME ONE Stop: 03/03/21 10:45 Last Admin: 03/03/21 10:23 Dose: 50 mls/hr Documented by: Ketorolac Tromethamine (Ketorolac 30 Mg/Ml Sdv) 30 mg IVPUSH ONETIME ONE Stop: 03/02/21 07:33 Last Admin: 03/02/21 07:43 Dose: 30 mg Documented by: Lorazepam (Lorazepam 2 Mg/Ml Sdv) 1 mg IVPUSH ONETIME ONE Stop: 03/02/21 23:58 Last Admin: 03/03/21 01:07 Dose: 1 mg Documented by: Morphine Sulfate (Morphine 4 Mg/Ml Syringe) 4 mg IVPUSH ONETIME ONE Stop: 03/02/21 21:43 Last Admin: 03/02/21 22:21 Dose: 4 mg Documented by: Potassium Chloride (Potassium Chloride 10 Meq Tab.Er) 40 meq PO ONETIME ONE Stop: 03/03/21 10:01 Last Admin: 03/03/21 10:22 Dose: 40 meq Documented by:
--- NOTE | 2021-03-03 16:07 | PCM.PN ---
- General Info Date of Service: 03/03/21 Admission Dx/Problem (Free Text): Admission Diagnosis/Problem Admission Diagnosis/Problem Abdominal mass Subjective Update: patient seen at bedside, much better pain control, resting comfortably, Vitals stable Functional Status: Reports: Tolerating Diet, Ambulating, Urinating - Review of Systems General: Reports: Fatigue, Malaise. Denies: Fever, Weakness Pulmonary: Denies: Shortness of Breath, Pleuritic Chest Pain Cardiovascular: Denies: Chest Pain, Palpitations Gastrointestinal: Denies: Abdominal Pain, Constipation Genitourinary: Denies: Dysuria, Frequency, Burning Musculoskeletal: Reports: Back Pain, Leg Pain. Denies: Neck Pain, Shoulder Pain, Arm Pain Skin: Denies: Cyanosis, Jaundice, Mottled - Patient Data Vitals - Most Recent: Last Vital Signs Temp 37.0 C 03/03/21 11:59 Pulse 96 03/03/21 11:59 Resp 22 H 03/03/21 11:59 BP 142/65 H 03/03/21 11:59 Pulse Ox 94 L 03/03/21 11:59 Weight - Most Recent: 77.519 kg I&O - Last 24 Hours: Intake & Output 03/03/21 03/03/21 03/03/21 06:59 14:59 22:59 Intake Total 900 Output Total 250 Balance 650 Lab Results Last 24 Hours: Laboratory Results - last 24 hr 03/02/21 03/02/21 03/03/21 Range/Units 16:35 17:03 00:15 WBC (4.0-11.0) K/uL RBC (4.30-5.90) M/uL Hgb 7.9 L (12.0-16.0) g/dL Hct 23.7 L (36.0-46.0) % MCV (80.0-98.0) fL MCH (27.0-32.0) pg MCHC (31.0-37.0) g/dL RDW Std Deviation (28.0-62.0) fl RDW Coeff of Masoud (11.0-15.0) % Plt Count (150-400) K/uL MPV (7.40-12.00) fL Neut % (Auto) (48.0-80.0) % Lymph % (Auto) (16.0-40.0) % Logan % (Auto) (0.0-15.0) % Eos % (Auto) (0.0-7.0) % Baso % (Auto) (0.0-1.5) % Neut # (Auto) (1.4-5.7) K/uL Lymph # (Auto) (0.6-2.4) K/uL Logan # (Auto) (0.0-0.8) K/uL Eos # (Auto) (0.0-0.7) K/uL Baso # (Auto) (0.0-0.1) K/uL Nucleated RBC % /100WBC Nucleated RBCs # K/uL INR Sodium (136-145) mmol/L Potassium (3.5-5.1) mmol/L Chloride (98-107) mmol/L Carbon Dioxide (21.0-32.0) mmol/L BUN (7.0-18.0) mg/dL Creatinine (0.6-1.0) mg/dL Est Cr Clr Drug Dosing mL/min Estimated GFR (MDRD) ml/min Glucose (74-106) mg/dL POC Glucose 83 (70-99) mg/dL Calcium (8.5-10.1) mg/dL Phosphorus (2.6-4.7) mg/dL Magnesium (1.8-2.4) mg/dL Total Bilirubin (0.2-1.0) mg/dL AST (15-37) IU/L ALT (14-63) IU/L Alkaline Phosphatase (46-116) U/L Total Protein (6.4-8.2) g/dL Albumin (3.4-5.0) g/dL Globulin (2.6-4.0) g/dL Albumin/Globulin Ratio (0.9-1.6) Carcinoembryonic Ag ng/mL Urine Color YELLOW Urine Appearance SLT CLOUDY Urine pH 5.5 (5.0-8.0) Ur Specific [place] 1.025 (1.001-1.035) Urine Protein 100 H (NEGATIVE) mg/dL Urine Glucose (UA) NEGATIVE (NEGATIVE) mg/dL Urine Ketones TRACE H (NEGATIVE) mg/dL Urine Occult Blood MODERATE H (NEGATIVE) Urine Nitrite NEGATIVE (NEGATIVE) Urine Bilirubin NEGATIVE (NEGATIVE) Urine Urobilinogen 0.2 (<2.0) EU/dL Ur Leukocyte Esterase LARGE H (NEGATIVE) Urine RBC 1-2 (0-2/HPF) Urine WBC 350-400 (0-5/HPF) Ur Epithelial Cells RARE (NONE-FEW) Amorphous Sediment FEW (NEGATIVE) Urine Bacteria 2+ H (NEGATIVE) Urine Mucus FEW (NONE-MOD) Blood Type Antibody Screen Crossmatch 03/03/21 03/03/21 03/03/21 Range/Units 00:50 01:25 05:27 WBC (4.0-11.0) K/uL RBC (4.30-5.90) M/uL Hgb (12.0-16.0) g/dL Hct (36.0-46.0) % MCV (80.0-98.0) fL MCH (27.0-32.0) pg MCHC (31.0-37.0) g/dL RDW Std Deviation (28.0-62.0) fl RDW Coeff of Masoud (11.0-15.0) % Plt Count (150-400) K/uL MPV (7.40-12.00) fL Neut % (Auto) (48.0-80.0) % Lymph % (Auto) (16.0-40.0) % Logan % (Auto) (0.0-15.0) % Eos % (Auto) (0.0-7.0) % Baso % (Auto) (0.0-1.5) % Neut # (Auto) (1.4-5.7) K/uL Lymph # (Auto) (0.6-2.4) K/uL Logan # (Auto) (0.0-0.8) K/uL Eos # (Auto) (0.0-0.7) K/uL Baso # (Auto) (0.0-0.1) K/uL Nucleated RBC % /100WBC Nucleated RBCs # K/uL INR 1.09 Sodium 132 L (136-145) mmol/L Potassium 3.3 L (3.5-5.1) mmol/L Chloride 95 L (98-107) mmol/L Carbon Dioxide 24.0 (21.0-32.0) mmol/L BUN 23 H (7.0-18.0) mg/dL Creatinine 2.1 H (0.6-1.0) mg/dL Est Cr Clr Drug Dosing 17.97 mL/min Estimated GFR (MDRD) 22.7 ml/min Glucose 107 H (74-106) mg/dL POC Glucose (70-99) mg/dL Calcium 8.8 (8.5-10.1) mg/dL Phosphorus 3.9 (2.6-4.7) mg/dL Magnesium 1.5 L (1.8-2.4) mg/dL Total Bilirubin 0.2 (0.2-1.0) mg/dL AST 28 (15-37) IU/L ALT 14 (14-63) IU/L Alkaline Phosphatase 120 H (46-116) U/L Total Protein 6.8 (6.4-8.2) g/dL Albumin 1.6 L (3.4-5.0) g/dL Globulin 5.2 H (2.6-4.0) g/dL Albumin/Globulin Ratio 0.3 L (0.9-1.6) Carcinoembryonic Ag 0.5 ng/mL Urine Color Urine Appearance Urine pH (5.0-8.0) Ur Specific [place] (1.001-1.035) Urine Protein (NEGATIVE) mg/dL Urine Glucose (UA) (NEGATIVE) mg/dL Urine Ketones (NEGATIVE) mg/dL Urine Occult Blood (NEGATIVE) Urine Nitrite (NEGATIVE) Urine Bilirubin (NEGATIVE) Urine Urobilinogen (<2.0) EU/dL Ur Leukocyte Esterase (NEGATIVE) Urine RBC (0-2/HPF) Urine WBC (0-5/HPF) Ur Epithelial Cells (NONE-FEW) Amorphous Sediment (NEGATIVE) Urine Bacteria (NEGATIVE) Urine Mucus (NONE-MOD) Blood Type B POSITIVE Antibody Screen NEGATIVE Crossmatch See Detail 03/03/21 03/03/21 03/03/21 Range/Units 05:27 06:07 12:10 WBC 18.18 H (4.0-11.0) K/uL RBC 3.56 L (4.30-5.90) M/uL Hgb 9.6 L (12.0-16.0) g/dL Hct 29.0 L (36.0-46.0) % MCV 81.5 (80.0-98.0) fL MCH 27.0 (27.0-32.0) pg MCHC 33.1 (31.0-37.0) g/dL RDW Std Deviation 53.6 (28.0-62.0) fl RDW Coeff of Masoud 18 H (11.0-15.0) % Plt Count 499 H (150-400) K/uL MPV 8.20 (7.40-12.00) fL Neut % (Auto) 84.4 H (48.0-80.0) % Lymph % (Auto) 8.4 L (16.0-40.0) % Logan % (Auto) 6.7 (0.0-15.0) % Eos % (Auto) 0.4 (0.0-7.0) % Baso % (Auto) 0.1 (0.0-1.5) % Neut # (Auto) 15.3 H (1.4-5.7) K/uL Lymph # (Auto) 1.5 (0.6-2.4) K/uL Logan # (Auto) 1.2 H (0.0-0.8) K/uL Eos # (Auto) 0.1 (0.0-0.7) K/uL Baso # (Auto) 0.0 (0.0-0.1) K/uL Nucleated RBC % 0.0 /100WBC Nucleated RBCs # 0 K/uL INR Sodium (136-145) mmol/L Potassium (3.5-5.1) mmol/L Chloride (98-107) mmol/L Carbon Dioxide (21.0-32.0) mmol/L BUN (7.0-18.0) mg/dL Creatinine (0.6-1.0) mg/dL Est Cr Clr Drug Dosing mL/min Estimated GFR (MDRD) ml/min Glucose (74-106) mg/dL POC Glucose 107 H 107 H (70-99) mg/dL Calcium (8.5-10.1) mg/dL Phosphorus (2.6-4.7) mg/dL Magnesium (1.8-2.4) mg/dL Total Bilirubin (0.2-1.0) mg/dL AST (15-37) IU/L ALT (14-63) IU/L Alkaline Phosphatase (46-116) U/L Total Protein (6.4-8.2) g/dL Albumin (3.4-5.0) g/dL Globulin (2.6-4.0) g/dL Albumin/Globulin Ratio (0.9-1.6) Carcinoembryonic Ag ng/mL Urine Color Urine Appearance Urine pH (5.0-8.0) Ur Specific [place] (1.001-1.035) Urine Protein (NEGATIVE) mg/dL Urine Glucose (UA) (NEGATIVE) mg/dL Urine Ketones (NEGATIVE) mg/dL Urine Occult Blood (NEGATIVE) Urine Nitrite (NEGATIVE) Urine Bilirubin (NEGATIVE) Urine Urobilinogen (<2.0) EU/dL Ur Leukocyte Esterase (NEGATIVE) Urine RBC (0-2/HPF) Urine WBC (0-5/HPF) Ur Epithelial Cells (NONE-FEW) Amorphous Sediment (NEGATIVE) Urine Bacteria (NEGATIVE) Urine Mucus (NONE-MOD) Blood Type Antibody Screen Crossmatch Cipriano Results Last 24 Hours: Microbiology 03/02/21 12:55 Aerobic Blood Culture - Preliminary Blood - Venous - Lab Draw NO GROWTH AFTER 1 DAY Anaerobic Blood Culture - Final 03/02/21 12:45 Aerobic Blood Culture - Preliminary Blood - Venous NO GROWTH AFTER 1 DAY Anaerobic Blood Culture - Preliminary NO GROWTH AFTER 1 DAY Med Orders - Current: Current Medications Acetaminophen (Acetaminophen 325 Mg Tab) 650 mg PO Q4H PRN PRN Reason: Fever Last Admin: 03/02/21 19:20 Dose: 650 mg Documented by: Acetaminophen/Codeine Phosphate (Acetaminophen/Codeine 300-30 Mg Tab) 1 tab PO QID PRN PRN Reason: Pain Last Admin: 03/03/21 08:48 Dose: 1 tab Documented by: Albuterol/Ipratropium (Albuterol/Ipratropium 3.0-0.5 Mg/3 Ml Neb Soln) 3 ml NEB Q4HRRT PRN PRN Reason: Shortness Of Breath/wheezing Dextrose/Water (50% Dextrose In Water 50 Ml Syringe) 50 ml IV ASDIRECTED PRN PRN Reason: Hypoglycemia Glucagon (Glucagon,Human Recombinant 1 Mg Vial) 1 mg IM ASDIRECTED PRN PRN Reason: Hypoglycemia Piperacillin Sod/Tazobactam (Sod 3.375 gm/ Sodium Chloride) 50 mls @ 100 mls/hr IV Q8H DARCY Last Admin: 03/03/21 08:48 Dose: 100 mls/hr Documented by: Pantoprazole Sodium 40 mg/ (Sodium Chloride) 10 mls @ 200 mls/hr IV Q12HR [facility] Last Admin: 03/03/21 08:47 Dose: 200 mls/hr Documented by: Lactated Ringer's (Ringers, Lactated) 1,000 mls @ 100 mls/hr IV Q10H DARCY Insulin Aspart (Insulin Aspart 100 Units/Ml 3 Ml Pen) 0 unit SUBCUT TIDAC [facility]; Protocol Last Admin: 03/03/21 13:52 Dose: Not Given Documented by: Lidocaine (Lidocaine 5% 700 Mg Patch) 700 mg TRDERM Q24H [facility] Last Admin: 03/03/21 01:03 Dose: 700 mg Documented by: Miscellaneous Information (Remove Patch) 1 ea TRDERM Q24H [facility] Last Admin: 03/03/21 13:58 Dose: 1 ea Documented by: Morphine Sulfate (Morphine 2 Mg/Ml Syringe) 1 mg IVPUSH Q4H PRN PRN Reason: Pain (severe 7-10) Last Admin: 03/03/21 14:54 Dose: 1 mg Documented by: Ondansetron HCl (Ondansetron 4 Mg/2 Ml Sdv) 4 mg IVPUSH Q4H PRN PRN Reason: Nausea/Vomiting Trazodone HCl (Trazodone 50 Mg Tab) 50 mg PO BEDTIME [facility] Last Admin: 03/02/21 20:57 Dose: 50 mg Documented by: Discontinued Medications Acetaminophen (Acetaminophen 325 Mg Tab) 650 mg PO Q4H PRN PRN Reason: Pain (Mild 1-3)/fever Hydromorphone HCl (Hydromorphone 1 Mg/Ml Syringe) 1 mg IVPUSH ONETIME ONE Stop: 03/03/21 00:16 Last Admin: 03/03/21 01:09 Dose: 1 mg Documented by: Piperacillin Sod/Tazobactam (Sod 3.375 gm/ Sodium Chloride) 50 mls @ 100 mls/hr IV ONETIME ONE Stop: 03/02/21 09:53 Last Admin: 03/02/21 09:44 Dose: 100 mls/hr Documented by: Sodium Chloride (Normal Saline) 1,000 mls @ 1,000 mls/hr IV .Bolus ONE Stop: 03/02/21 10:34 Last Admin: 03/02/21 09:44 Dose: 1,000 mls/hr Documented by: Lactated Ringer's (Ringers, Lactated) 1,000 mls @ 999 mls/hr IV .BOLUS ONE Stop: 03/02/21 12:45 Last Admin: 03/02/21 12:25 Dose: 999 mls/hr Documented by: Lactated Ringer's (Ringers, Lactated) 1,000 mls @ 125 mls/hr IV Q8H DARCY Last Admin: 03/02/21 21:54 Dose: 125 mls/hr Documented by: Magnesium Sulfate (Magnesium Sulfate In Water 2 Gm/50 Ml) 2 gm in 50 mls @ 50 mls/hr IV ONETIME ONE Stop: 03/03/21 10:45 Last Admin: 03/03/21 10:23 Dose: 50 mls/hr Documented by: Ketorolac Tromethamine (Ketorolac 30 Mg/Ml Sdv) 30 mg IVPUSH ONETIME ONE Stop: 03/02/21 07:33 Last Admin: 03/02/21 07:43 Dose: 30 mg Documented by: Lorazepam (Lorazepam 2 Mg/Ml Sdv) 1 mg IVPUSH ONETIME ONE Stop: 03/02/21 23:58 Last Admin: 03/03/21 01:07 Dose: 1 mg Documented by: Morphine Sulfate (Morphine 4 Mg/Ml Syringe) 4 mg IVPUSH ONETIME ONE Stop: 03/02/21 21:43 Last Admin: 03/02/21 22:21 Dose: 4 mg Documented by: Potassium Chloride (Potassium Chloride 10 Meq Tab.Er) 40 meq PO ONETIME ONE Stop: 03/03/21 10:01 Last Admin: 03/03/21 10:22 Dose: 40 meq Documented by: - Exam General: Alert, Oriented, No Acute Distress Lungs: Clear to Auscultation, Normal Respiratory Effort Cardiovascular: Regular Rate, Regular Rhythm GI/Abdominal Exam: Normal Bowel Sounds, Soft. No: Distended, Guarding, Rigid, Rebound, Hepatomegaly, Splenomegaly - Patient Data Lab Results Last 24 hrs: Laboratory Results - last 24 hr 03/02/21 03/02/21 03/03/21 Range/Units 16:35 17:03 00:15 WBC (4.0-11.0) K/uL RBC (4.30-5.90) M/uL Hgb 7.9 L (12.0-16.0) g/dL Hct 23.7 L (36.0-46.0) % MCV (80.0-98.0) fL MCH (27.0-32.0) pg MCHC (31.0-37.0) g/dL RDW Std Deviation (28.0-62.0) fl RDW Coeff of Masoud (11.0-15.0) % Plt Count (150-400) K/uL MPV (7.40-12.00) fL Neut % (Auto) (48.0-80.0) % Lymph % (Auto) (16.0-40.0) % Logan % (Auto) (0.0-15.0) % Eos % (Auto) (0.0-7.0) % Baso % (Auto) (0.0-1.5) % Neut # (Auto) (1.4-5.7) K/uL Lymph # (Auto) (0.6-2.4) K/uL Logan # (Auto) (0.0-0.8) K/uL Eos # (Auto) (0.0-0.7) K/uL Baso # (Auto) (0.0-0.1) K/uL Nucleated RBC % /100WBC Nucleated RBCs # K/uL INR Sodium (136-145) mmol/L Potassium (3.5-5.1) mmol/L Chloride (98-107) mmol/L Carbon Dioxide (21.0-32.0) mmol/L BUN (7.0-18.0) mg/dL Creatinine (0.6-1.0) mg/dL Est Cr Clr Drug Dosing mL/min Estimated GFR (MDRD) ml/min Glucose (74-106) mg/dL POC Glucose 83 (70-99) mg/dL Calcium (8.5-10.1) mg/dL Phosphorus (2.6-4.7) mg/dL Magnesium (1.8-2.4) mg/dL Total Bilirubin (0.2-1.0) mg/dL AST (15-37) IU/L ALT (14-63) IU/L Alkaline Phosphatase (46-116) U/L Total Protein (6.4-8.2) g/dL Albumin (3.4-5.0) g/dL Globulin (2.6-4.0) g/dL Albumin/Globulin Ratio (0.9-1.6) Carcinoembryonic Ag ng/mL Urine Color YELLOW Urine Appearance SLT CLOUDY Urine pH 5.5 (5.0-8.0) Ur Specific [place] 1.025 (1.001-1.035) Urine Protein 100 H (NEGATIVE) mg/dL Urine Glucose (UA) NEGATIVE (NEGATIVE) mg/dL Urine Ketones TRACE H (NEGATIVE) mg/dL Urine Occult Blood MODERATE H (NEGATIVE) Urine Nitrite NEGATIVE (NEGATIVE) Urine Bilirubin NEGATIVE (NEGATIVE) Urine Urobilinogen 0.2 (<2.0) EU/dL Ur Leukocyte Esterase LARGE H (NEGATIVE) Urine RBC 1-2 (0-2/HPF) Urine WBC 350-400 (0-5/HPF) Ur Epithelial Cells RARE (NONE-FEW) Amorphous Sediment FEW (NEGATIVE) Urine Bacteria 2+ H (NEGATIVE) Urine Mucus FEW (NONE-MOD) Blood Type Antibody Screen Crossmatch 03/03/21 03/03/21 03/03/21 Range/Units 00:50 01:25 05:27 WBC (4.0-11.0) K/uL RBC (4.30-5.90) M/uL Hgb (12.0-16.0) g/dL Hct (36.0-46.0) % MCV (80.0-98.0) fL MCH (27.0-32.0) pg MCHC (31.0-37.0) g/dL RDW Std Deviation (28.0-62.0) fl RDW Coeff of Masoud (11.0-15.0) % Plt Count (150-400) K/uL MPV (7.40-12.00) fL Neut % (Auto) (48.0-80.0) % Lymph % (Auto) (16.0-40.0) % Logan % (Auto) (0.0-15.0) % Eos % (Auto) (0.0-7.0) % Baso % (Auto) (0.0-1.5) % Neut # (Auto) (1.4-5.7) K/uL Lymph # (Auto) (0.6-2.4) K/uL Logan # (Auto) (0.0-0.8) K/uL Eos # (Auto) (0.0-0.7) K/uL Baso # (Auto) (0.0-0.1) K/uL Nucleated RBC % /100WBC Nucleated RBCs # K/uL INR 1.09 Sodium 132 L (136-145) mmol/L Potassium 3.3 L (3.5-5.1) mmol/L Chloride 95 L (98-107) mmol/L Carbon Dioxide 24.0 (21.0-32.0) mmol/L BUN 23 H (7.0-18.0) mg/dL Creatinine 2.1 H (0.6-1.0) mg/dL Est Cr Clr Drug Dosing 17.97 mL/min Estimated GFR (MDRD) 22.7 ml/min Glucose 107 H (74-106) mg/dL POC Glucose (70-99) mg/dL Calcium 8.8 (8.5-10.1) mg/dL Phosphorus 3.9 (2.6-4.7) mg/dL Magnesium 1.5 L (1.8-2.4) mg/dL Total Bilirubin 0.2 (0.2-1.0) mg/dL AST 28 (15-37) IU/L ALT 14 (14-63) IU/L Alkaline Phosphatase 120 H (46-116) U/L Total Protein 6.8 (6.4-8.2) g/dL Albumin 1.6 L (3.4-5.0) g/dL Globulin 5.2 H (2.6-4.0) g/dL Albumin/Globulin Ratio 0.3 L (0.9-1.6) Carcinoembryonic Ag 0.5 ng/mL Urine Color Urine Appearance Urine pH (5.0-8.0) Ur Specific [place] (1.001-1.035) Urine Protein (NEGATIVE) mg/dL Urine Glucose (UA) (NEGATIVE) mg/dL Urine Ketones (NEGATIVE) mg/dL Urine Occult Blood (NEGATIVE) Urine Nitrite (NEGATIVE) Urine Bilirubin (NEGATIVE) Urine Urobilinogen (<2.0) EU/dL Ur Leukocyte Esterase (NEGATIVE) Urine RBC (0-2/HPF) Urine WBC (0-5/HPF) Ur Epithelial Cells (NONE-FEW) Amorphous Sediment (NEGATIVE) Urine Bacteria (NEGATIVE) Urine Mucus (NONE-MOD) Blood Type B POSITIVE Antibody Screen NEGATIVE Crossmatch See Detail 03/03/21 03/03/21 03/03/21 Range/Units 05:27 06:07 12:10 WBC 18.18 H (4.0-11.0) K/uL RBC 3.56 L (4.30-5.90) M/uL Hgb 9.6 L (12.0-16.0) g/dL Hct 29.0 L (36.0-46.0) % MCV 81.5 (80.0-98.0) fL MCH 27.0 (27.0-32.0) pg MCHC 33.1 (31.0-37.0) g/dL RDW Std Deviation 53.6 (28.0-62.0) fl RDW Coeff of Masoud 18 H (11.0-15.0) % Plt Count 499 H (150-400) K/uL MPV 8.20 (7.40-12.00) fL Neut % (Auto) 84.4 H (48.0-80.0) % Lymph % (Auto) 8.4 L (16.0-40.0) % Logan % (Auto) 6.7 (0.0-15.0) % Eos % (Auto) 0.4 (0.0-7.0) % Baso % (Auto) 0.1 (0.0-1.5) % Neut # (Auto) 15.3 H (1.4-5.7) K/uL Lymph # (Auto) 1.5 (0.6-2.4) K/uL Logan # (Auto) 1.2 H (0.0-0.8) K/uL Eos # (Auto) 0.1 (0.0-0.7) K/uL Baso # (Auto) 0.0 (0.0-0.1) K/uL Nucleated RBC % 0.0 /100WBC Nucleated RBCs # 0 K/uL INR Sodium (136-145) mmol/L Potassium (3.5-5.1) mmol/L Chloride (98-107) mmol/L Carbon Dioxide (21.0-32.0) mmol/L BUN (7.0-18.0) mg/dL Creatinine (0.6-1.0) mg/dL Est Cr Clr Drug Dosing mL/min Estimated GFR (MDRD) ml/min Glucose (74-106) mg/dL POC Glucose 107 H 107 H (70-99) mg/dL Calcium (8.5-10.1) mg/dL Phosphorus (2.6-4.7) mg/dL Magnesium (1.8-2.4) mg/dL Total Bilirubin (0.2-1.0) mg/dL AST (15-37) IU/L ALT (14-63) IU/L Alkaline Phosphatase (46-116) U/L Total Protein (6.4-8.2) g/dL Albumin (3.4-5.0) g/dL Globulin (2.6-4.0) g/dL Albumin/Globulin Ratio (0.9-1.6) Carcinoembryonic Ag ng/mL Urine Color Urine Appearance Urine pH (5.0-8.0) Ur Specific [place] (1.001-1.035) Urine Protein (NEGATIVE) mg/dL Urine Glucose (UA) (NEGATIVE) mg/dL Urine Ketones (NEGATIVE) mg/dL Urine Occult Blood (NEGATIVE) Urine Nitrite (NEGATIVE) Urine Bilirubin (NEGATIVE) Urine Urobilinogen (<2.0) EU/dL Ur Leukocyte Esterase (NEGATIVE) Urine RBC (0-2/HPF) Urine WBC (0-5/HPF) Ur Epithelial Cells (NONE-FEW) Amorphous Sediment (NEGATIVE) Urine Bacteria (NEGATIVE) Urine Mucus (NONE-MOD) Blood Type Antibody Screen Crossmatch Result Diagrams: 03/03/21 05:27 03/03/21 05:27 Cipriano Results Last 24 hrs: Microbiology 03/02/21 12:55 Aerobic Blood Culture - Preliminary Blood - Venous - Lab Draw NO GROWTH AFTER 1 DAY Anaerobic Blood Culture - Final 03/02/21 12:45 Aerobic Blood Culture - Preliminary Blood - Venous NO GROWTH AFTER 1 DAY Anaerobic Blood Culture - Preliminary NO GROWTH AFTER 1 DAY Sepsis Event Note - Evaluation Sepsis Screening Result: Sepsis Risk - Focused Exam Vital Signs: Vital Signs Temp Temp Pulse Resp BP Pulse Ox 03/03/21 11:59 37.0 C 96 22 H 142/65 H 94 L 03/03/21 08:00 35.9 C L 105 H 22 H 145/67 H 97 03/03/21 05:24 36.1 C 104 H 18 94 L - Problem List & Annotations (1) Diarrhea SNOMED Code(s): 57113988 Code(s): R19.7 - DIARRHEA, UNSPECIFIED Status: Acute Current Visit: Yes (2) Abdominal mass SNOMED Code(s): 627222125 Code(s): R19.00 - INTRA-ABD AND PELVIC SWELLING, MASS AND LUMP, UNSP SITE Status: Acute Current Visit: Yes (3) Type 2 diabetes mellitus SNOMED Code(s): 64401957 Code(s): E11.9 - TYPE 2 DIABETES MELLITUS WITHOUT COMPLICATIONS Status: Acute Current Visit: No (4) UTI (urinary tract infection) SNOMED Code(s): 58282593 Code(s): N39.0 - URINARY TRACT INFECTION, SITE NOT SPECIFIED Status: Acute Current Visit: No Qualifiers: Urinary tract infection type: acute cystitis Hematuria presence: without hematuria Qualified Code(s): N30.00 - Acute cystitis without hematuria - Problem List Review Problem List Initiated/Reviewed/Updated: Yes - My Orders Last 24 Hours: My Active Orders 03/02/21 Dinner Clear Liquid Diet [DIET] 03/02/21 16:35 CULTURE URINE [RM] Routine 03/02/21 17:00 Insulin Aspart [NovoLOG] See Protocol SUBCUT TIDAC Piperacillin/Tazobactam [Piperacil-Tazobact] 3.375 gm Sodium Chloride 0.9% [Normal Saline] 50 ml IV Q8H 03/02/21 17:18 Resuscitation Status Routine 03/02/21 17:19 Morphine 1 mg IVPUSH Q4H PRN 03/02/21 18:43 Acetaminophen [TylenoL] 650 mg PO Q4H PRN 03/02/21 21:00 traZODone 50 mg PO BEDTIME 03/02/21 23:45 Lidocaine 5% [Lidoderm 5%] 700 mg TRDERM Q24H 03/03/21 00:50 RED BLOOD CELLS LP [BBK] Routine TYPE AND SCREEN [BBK] Routine 03/03/21 00:52 Transfuse Red Blood Cells [COMM] Routine 03/03/21 11:45 Remove Patch 1 ea TRDERM Q24H - Plan Plan:: 80 y/o F admitted for N/V diarrhea and back pain Was found to have a huge retroperitoneal mass renal cell ca vs colon ca vs hematoma, AAA rupture unlikely patient is hemodynamically stable as of now and back pain is chronic in nature cont IV fluids Recheck Hb in evening Zofran for N/V Morphine for back pain SCD for dvt ppx CEA noted MRI done, poorly characterized due to lack of contrast, surgery recommended transfer for IR guided biopsy vs drainage, so far me and Dr Leblanc both have tried several tertiary care facilities but no one is willing to accept the patient, due to the size of the mass and lack of characterization, there is a possibilty that if patient remains hemodynamically stable she may be discharged home with a close follow up with IR at [facility] for which appt has already been made by Dr Leblanc. .
[2021-03-03 16:18] LABS: CARBON DIOXIDE,CO2 24.5 mmol/L (21.0-32.0); POTASSIUM,K 3.6 mmol/L (3.5-5.1)
--- NOTE | 2021-03-03 16:22 | PCM.SN.2 ---
- Free Text/Narrative Note: pt had increased abd pain overnight, repeated CT showed mass unchanged in size. h/h was 9.1, increased from 7.9 after 1 rbc. had MRI no contrast this am, noted for retroperitoneal mass 13X 11 cm, abutting L kidney, and L kidney was read, "grossly negative". Patient would benefit from transferring to a tertiary care facility as pt out weights our [facility]. Talked to Urologist Dr. Savage, at [place] [phone]. She recommended somewhere else and would not accept the transfer. Called [facility], both general surgeons, Dr. Pa and Jerzy, there do not do retroperitoneal surgery and refuse to accept patient; called [place] at [place] [phone]), Dr. Olivas, would like to see work up at outpatient, then see patient in clinic, ([phone]) He later called back, and requested ct w contrast to be done. I explained pt CKI of cr 2.1 and GFR of 17, he would like to see give more fluid to proceed ct imaging. I called [facility] at [place], talked to general surgeon Dr. Fitzpatrick, and explained situation to, Dr. Benitez, intervention radiologist set up an outpatient appointment for possible outpatient image guided biopsy two days from now, if patient deem stable and be discharge. Attempted transfer from 11a till now, 4:30p, talked to 6 doctors of 4 specialties. Discussed with hospitalist Kita Matos, we both concluded getting IV CT is detrimental to patient with a GFR of 17 and cr 2.1; and Dr. Matos asked our senior environmental technician, and they do think they can administrated iv contrast to this patient at her kidney conditions.
[2021-03-03] MEDS: Lactated Ringers 1,000 ML IV SCH (16:36)
--- NOTE | 2021-03-03 18:47 | US ---
INDICATION: Left retroperitoneal mass, solid mass versus abscess. COMPARISON: CT of the abdomen and MR of the abdomen from today TECHNIQUE: Limited ultrasound examination of the retroperitoneum was performed with attention to the kidneys. The urinary bladder is not examined. FINDINGS: The left kidney is displaced anteriorly by a heterogeneous cystic-appearing structure measuring 12.1 x 6.6 x 6.2 centimeters without color Doppler flow. There is acoustic through transmission posterior to the structure, suggesting that it is primarily fluid, consistent with the appearance on MRI. While nonspecific, the findings are suggestive of a large retroperitoneal hematoma. An abscess cannot be excluded, but there is no sign of any dirty shadowing to suggest bubbles of gas within this fluid. Since this does not appear to be a solid mass, malignancy is less likely, although a necrotic malignancy cannot be excluded. The left kidney has a simple cyst measuring 3.6 x 4.6 x 3.0 centimeters arising from the interpolar region. The right kidney has a simple cyst in the lateral interpolar region measuring 3.1 x 3.0 x 3.8 centimeters. There is no sign of hydronephrosis. There is mildly increased renal cortical echogenicity on both sides, consistent with medical renal disease. The right kidney measures 12.5 x 5.2 x 5.8 cm. The left kidney measures 13.9 x 6.3 x 6.9 cm. There is normal color Doppler flow in both kidneys. The acceleration index is normal, 3.6 meters/seconds on the right and 9.6 meters/seconds on the left, with nothing seen to suggest renal artery stenosis. The resistive index is diffusely decreased throughout both kidneys, measuring 1.0-0.99. This consistent with intrinsic renal disease. IMPRESSION: Anterior displacement of the left kidney by a heterogeneous cystic-appearing structure measuring 12.1 x 6.6 x 6.2 centimeters. Findings more suggestive of retroperitoneal hematoma versus abscess than retroperitoneal malignancy. No sign of any increased color Doppler flow to suggest inflammation or large volume active hemorrhage at this time. Simple cysts seen in both kidneys. Elevated resistive indices throughout both kidneys with normal acceleration times, findings of intrinsic renal disease with no sign of renal artery stenosis. Dictated by Jaime Elam MD @ 03/03/2021 6:46:[address] Jaime Elam @ Mar 03 2021 6:46PM
[2021-03-03] MEDS: traZODone 50 MG Tab PO SCH (22:00)
[2021-03-04] MEDS: Piperacillin/Tazobactam 3.375 GM in Sodium Chloride 0.9% 50 ML IV SCH ×3 (01:40→17:19)
[2021-03-04] MEDS: Lactated Ringers 1,000 ML IV SCH ×2 (04:23→19:38)
[2021-03-04] MEDS: Morphine 2 MG/ML SYRINGE IVPUSH PRN ×2 (04:24→09:34)
[2021-03-04 06:14] LABS: CARBON DIOXIDE,CO2 24.1 mmol/L (21.0-32.0); POTASSIUM,K 3.4 mmol/L (3.5-5.1)
[2021-03-04] MEDS: Acetaminophen/Codeine 300-30 MG Tab PO PRN ×2 (07:32→21:43)
[2021-03-04] MEDS: Insulin Aspart 100 Units/ML 3 ML Pen SUBCUT SCH ×3 (07:40→17:18)
[2021-03-04] MEDS: Benzocaine/Cetylpyridinium/Menthol Lozenge MUCMEM PRN ×3 (08:30→21:44)
[2021-03-04] MEDS: Pantoprazole 40 MG in Sodium Chloride 0.9% 10 ML IV SCH ×2 (08:38→21:39)
[2021-03-04] MEDS ORDERED: Potassium Chloride 20 MEQ Tab.ER PO ONE (10:00)
--- NOTE | 2021-03-04 10:04 | PCM.SURGPN ---
- General Info Date of Service: 03/04/21 Functional Status: Reports: Pain Controlled - Review of Systems Gastrointestinal: Reports: No Symptoms (clear liquid this am, af vss, h/h stable at 10) - Patient Data Vitals - Most Recent: Last Vital Signs Temp 96.4 F L 03/04/21 07:44 Pulse 91 03/04/21 07:44 Resp 16 03/04/21 07:44 BP 154/69 H 03/04/21 07:44 Pulse Ox 95 03/04/21 07:44 Weight - Most Recent: 179 lb 8 oz I&O - Last 24 Hours: Intake & Output 03/03/21 03/04/21 03/04/21 22:59 06:59 14:59 Intake Total 650 2573 Output Total 550 650 Balance 100 1923 Lab Results Last 24 Hrs: Laboratory Results - last 24 hr 03/03/21 03/03/21 03/03/21 Range/Units 12:10 15:44 15:44 WBC 18.96 H (4.0-11.0) K/uL RBC 3.73 L (4.30-5.90) M/uL Hgb 10.0 L (12.0-16.0) g/dL Hct 30.3 L (36.0-46.0) % MCV 81.2 (80.0-98.0) fL MCH 26.8 L (27.0-32.0) pg MCHC 33.0 (31.0-37.0) g/dL RDW Std Deviation 51.8 (28.0-62.0) fl RDW Coeff of Masoud 18 H (11.0-15.0) % Plt Count 462 H (150-400) K/uL MPV 8.20 (7.40-12.00) fL Neut % (Auto) 81.3 H (48.0-80.0) % Lymph % (Auto) 11.3 L (16.0-40.0) % Bryan % (Auto) 6.7 (0.0-15.0) % Eos % (Auto) 0.5 (0.0-7.0) % Baso % (Auto) 0.2 (0.0-1.5) % Neut # (Auto) 15.4 H (1.4-5.7) K/uL Lymph # (Auto) 2.1 (0.6-2.4) K/uL Bryan # (Auto) 1.3 H (0.0-0.8) K/uL Eos # (Auto) 0.1 (0.0-0.7) K/uL Baso # (Auto) 0.0 (0.0-0.1) K/uL Add Manual Diff Neutrophils % (Manual) (48.0-80.0) % Band Neutrophils % % Lymphocytes % (Manual) (16.0-40.0) % Monocytes % (Manual) (0.0-15.0) % Nucleated RBC % 0.0 /100WBC Absolute Seg Neuts (1.4-5.7) Band Neutrophils # Lymphocytes # (Manual) (0.6-2.4) Monocytes # (Manual) (0.0-0.8) Nucleated RBCs # 0 K/uL Sodium 131 L (136-145) mmol/L Potassium 3.6 (3.5-5.1) mmol/L Chloride 93 L (98-107) mmol/L Carbon Dioxide 24.5 (21.0-32.0) mmol/L BUN 24 H (7.0-18.0) mg/dL Creatinine 2.1 H (0.6-1.0) mg/dL Est Cr Clr Drug Dosing 17.97 mL/min Estimated GFR (MDRD) 22.7 ml/min Glucose 104 (74-106) mg/dL POC Glucose 107 H (70-99) mg/dL Calcium 9.2 (8.5-10.1) mg/dL Phosphorus (2.6-4.7) mg/dL Magnesium (1.8-2.4) mg/dL 03/03/21 03/04/21 03/04/21 Range/Units 17:45 04:48 04:48 WBC 17.45 H (4.0-11.0) K/uL RBC 3.73 L (4.30-5.90) M/uL Hgb 9.9 L (12.0-16.0) g/dL Hct 30.3 L (36.0-46.0) % MCV 81.2 (80.0-98.0) fL MCH 26.5 L (27.0-32.0) pg MCHC 32.7 (31.0-37.0) g/dL RDW Std Deviation 52.2 (28.0-62.0) fl RDW Coeff of Masoud 17 H (11.0-15.0) % Plt Count 504 H (150-400) K/uL MPV 8.50 (7.40-12.00) fL Neut % (Auto) (48.0-80.0) % Lymph % (Auto) (16.0-40.0) % Bryan % (Auto) (0.0-15.0) % Eos % (Auto) (0.0-7.0) % Baso % (Auto) (0.0-1.5) % Neut # (Auto) (1.4-5.7) K/uL Lymph # (Auto) (0.6-2.4) K/uL Bryan # (Auto) (0.0-0.8) K/uL Eos # (Auto) (0.0-0.7) K/uL Baso # (Auto) (0.0-0.1) K/uL Add Manual Diff YES Neutrophils % (Manual) 77 (48.0-80.0) % Band Neutrophils % 4 % Lymphocytes % (Manual) 14 L (16.0-40.0) % Monocytes % (Manual) 5 (0.0-15.0) % Nucleated RBC % 0.0 /100WBC Absolute Seg Neuts 13.4 H (1.4-5.7) Band Neutrophils # 0.7 Lymphocytes # (Manual) 2.4 (0.6-2.4) Monocytes # (Manual) 0.9 H (0.0-0.8) Nucleated RBCs # 0 K/uL Sodium 131 L (136-145) mmol/L Potassium 3.4 L (3.5-5.1) mmol/L Chloride 95 L (98-107) mmol/L Carbon Dioxide 24.1 (21.0-32.0) mmol/L BUN 21 H (7.0-18.0) mg/dL Creatinine 2.1 H (0.6-1.0) mg/dL Est Cr Clr Drug Dosing 17.97 mL/min Estimated GFR (MDRD) 22.7 ml/min Glucose 89 (74-106) mg/dL POC Glucose 96 (70-99) mg/dL Calcium 8.7 (8.5-10.1) mg/dL Phosphorus 3.4 (2.6-4.7) mg/dL Magnesium 1.9 (1.8-2.4) mg/dL 03/04/21 Range/Units 07:48 WBC (4.0-11.0) K/uL RBC (4.30-5.90) M/uL Hgb (12.0-16.0) g/dL Hct (36.0-46.0) % MCV (80.0-98.0) fL MCH (27.0-32.0) pg MCHC (31.0-37.0) g/dL RDW Std Deviation (28.0-62.0) fl RDW Coeff of Masoud (11.0-15.0) % Plt Count (150-400) K/uL MPV (7.40-12.00) fL Neut % (Auto) (48.0-80.0) % Lymph % (Auto) (16.0-40.0) % Bryan % (Auto) (0.0-15.0) % Eos % (Auto) (0.0-7.0) % Baso % (Auto) (0.0-1.5) % Neut # (Auto) (1.4-5.7) K/uL Lymph # (Auto) (0.6-2.4) K/uL Bryan # (Auto) (0.0-0.8) K/uL Eos # (Auto) (0.0-0.7) K/uL Baso # (Auto) (0.0-0.1) K/uL Add Manual Diff Neutrophils % (Manual) (48.0-80.0) % Band Neutrophils % % Lymphocytes % (Manual) (16.0-40.0) % Monocytes % (Manual) (0.0-15.0) % Nucleated RBC % /100WBC Absolute Seg Neuts (1.4-5.7) Band Neutrophils # Lymphocytes # (Manual) (0.6-2.4) Monocytes # (Manual) (0.0-0.8) Nucleated RBCs # K/uL Sodium (136-145) mmol/L Potassium (3.5-5.1) mmol/L Chloride (98-107) mmol/L Carbon Dioxide (21.0-32.0) mmol/L BUN (7.0-18.0) mg/dL Creatinine (0.6-1.0) mg/dL Est Cr Clr Drug Dosing mL/min Estimated GFR (MDRD) ml/min Glucose (74-106) mg/dL POC Glucose 100 H (70-99) mg/dL Calcium (8.5-10.1) mg/dL Phosphorus (2.6-4.7) mg/dL Magnesium (1.8-2.4) mg/dL Cipriano Results Last 24 Hrs: Microbiology 03/02/21 16:35 Urine Culture - Final Urine, Clean Catch Klebsiella Pneumoniae 03/02/21 12:55 Aerobic Blood Culture - Preliminary Blood - Venous - Lab Draw NO GROWTH AFTER 1 DAY Anaerobic Blood Culture - Final 03/02/21 12:45 Aerobic Blood Culture - Preliminary Blood - Venous NO GROWTH AFTER 1 DAY Anaerobic Blood Culture - Preliminary NO GROWTH AFTER 1 DAY Med Orders - Current: Current Medications Acetaminophen (Acetaminophen 325 Mg Tab) 650 mg PO Q4H PRN PRN Reason: Fever Last Admin: 03/02/21 19:20 Dose: 650 mg Documented by: Acetaminophen/Codeine Phosphate (Acetaminophen/Codeine 300-30 Mg Tab) 1 tab PO QID PRN PRN Reason: Pain Last Admin: 03/04/21 07:32 Dose: 1 tab Documented by: Albuterol/Ipratropium (Albuterol/Ipratropium 3.0-0.5 Mg/3 Ml Neb Soln) 3 ml NEB Q4HRRT PRN PRN Reason: Shortness Of Breath/wheezing Benzocaine/Menthol (Benzocaine/Cetylpyridinium/Menthol Lozenge) 1 lozenge MUCMEM Q4H PRN PRN Reason: Sore Throat Last Admin: 03/04/21 08:30 Dose: 1 lozenge Documented by: Dextrose/Water (50% Dextrose In Water 50 Ml Syringe) 50 ml IV ASDIRECTED PRN PRN Reason: Hypoglycemia Glucagon (Glucagon,Human Recombinant 1 Mg Vial) 1 mg IM ASDIRECTED PRN PRN Reason: Hypoglycemia Piperacillin Sod/Tazobactam (Sod 3.375 gm/ Sodium Chloride) 50 mls @ 100 mls/hr IV Q8H [facility] Last Admin: 03/04/21 08:41 Dose: 100 mls/hr Documented by: Pantoprazole Sodium 40 mg/ (Sodium Chloride) 10 mls @ 200 mls/hr IV Q12HR [facility] Last Admin: 03/04/21 08:38 Dose: 200 mls/hr Documented by: Lactated Ringer's (Ringers, Lactated) 1,000 mls @ 100 mls/hr IV Q10H [facility] Last Admin: 03/04/21 04:23 Dose: 100 mls/hr Documented by: Insulin Aspart (Insulin Aspart 100 Units/Ml 3 Ml Pen) 0 unit SUBCUT TIDAC [facility]; Protocol Last Admin: 03/04/21 07:40 Dose: Not Given Documented by: Lidocaine (Lidocaine 5% 700 Mg Patch) 700 mg TRDERM Q24H [facility] Last Admin: 03/03/21 23:41 Dose: 700 mg Documented by: Miscellaneous Information (Remove Patch) 1 ea TRDERM Q24H [facility] Last Admin: 03/03/21 13:58 Dose: 1 ea Documented by: Morphine Sulfate (Morphine 2 Mg/Ml Syringe) 1 mg IVPUSH Q4H PRN PRN Reason: Pain (severe 7-10) Last Admin: 03/04/21 09:34 Dose: 1 mg Documented by: Ondansetron HCl (Ondansetron 4 Mg/2 Ml Sdv) 4 mg IVPUSH Q4H PRN PRN Reason: Nausea/Vomiting Potassium Chloride (Potassium Chloride 20 Meq Tab.Er) 40 meq PO ONETIME ONE Stop: 03/04/21 10:01 Trazodone HCl (Trazodone 50 Mg Tab) 50 mg PO BEDTIME [facility] Last Admin: 03/03/21 22:00 Dose: 50 mg Documented by: Discontinued Medications Acetaminophen (Acetaminophen 325 Mg Tab) 650 mg PO Q4H PRN PRN Reason: Pain (Mild 1-3)/fever Hydromorphone HCl (Hydromorphone 1 Mg/Ml Syringe) 1 mg IVPUSH ONETIME ONE Stop: 03/03/21 00:16 Last Admin: 03/03/21 01:09 Dose: 1 mg Documented by: Piperacillin Sod/Tazobactam (Sod 3.375 gm/ Sodium Chloride) 50 mls @ 100 mls/hr IV ONETIME ONE Stop: 03/02/21 09:53 Last Admin: 03/02/21 09:44 Dose: 100 mls/hr Documented by: Sodium Chloride (Normal Saline) 1,000 mls @ 1,000 mls/hr IV .Bolus ONE Stop: 03/02/21 10:34 Last Admin: 03/02/21 09:44 Dose: 1,000 mls/hr Documented by: Lactated Ringer's (Ringers, Lactated) 1,000 mls @ 999 mls/hr IV .BOLUS ONE Stop: 03/02/21 12:45 Last Admin: 03/02/21 12:25 Dose: 999 mls/hr Documented by: Lactated Ringer's (Ringers, Lactated) 1,000 mls @ 125 mls/hr IV Q8H [facility] Last Admin: 03/02/21 21:54 Dose: 125 mls/hr Documented by: Magnesium Sulfate (Magnesium Sulfate In Water 2 Gm/50 Ml) 2 gm in 50 mls @ 50 mls/hr IV ONETIME ONE Stop: 03/03/21 10:45 Last Admin: 03/03/21 10:23 Dose: 50 mls/hr Documented by: Ketorolac Tromethamine (Ketorolac 30 Mg/Ml Sdv) 30 mg IVPUSH ONETIME ONE Stop: 03/02/21 07:33 Last Admin: 03/02/21 07:43 Dose: 30 mg Documented by: Lorazepam (Lorazepam 2 Mg/Ml Sdv) 1 mg IVPUSH ONETIME ONE Stop: 03/02/21 23:58 Last Admin: 03/03/21 01:07 Dose: 1 mg Documented by: Morphine Sulfate (Morphine 4 Mg/Ml Syringe) 4 mg IVPUSH ONETIME ONE Stop: 03/02/21 21:43 Last Admin: 03/02/21 22:21 Dose: 4 mg Documented by: Potassium Chloride (Potassium Chloride 10 Meq Tab.Er) 40 meq PO ONETIME ONE Stop: 03/03/21 10:01 Last Admin: 03/03/21 10:22 Dose: 40 meq Documented by: - Exam GI/Abdominal Exam: Normal Bowel Sounds, Soft, Non-Tender Sepsis Event Note - Evaluation Sepsis Screening Result: No Definite Risk - Focused Exam Vital Signs: Vital Signs Temp Pulse Resp BP Pulse Ox 03/04/21 07:44 96.4 F L 91 16 154/69 H 95 03/04/21 04:29 98.2 F 89 17 155/71 H 95 03/04/21 00:25 95.4 F L 97 153/71 H 96 - Problem List Review Problem List Initiated/Reviewed/Updated: Yes - My Orders Last 24 Hours: Active Orders 24 hr Category Date Time Status Communication Order [RC] ROUTINE Care 03/03/21 15:23 Active Daily Weight [Height and Weight] [RC] DAILY Care 03/03/21 16:39 Active Consult to Case Management/Grip Boss [CONS] Cons 03/04/21 09:50 Ordered Routine PT Evaluation and Treatment [CONS] Routine Cons 03/04/21 09:44 Active Benzocaine/Cetylpyrd/Menthol [Cepacol Sore Throat] Med 03/04/21 02:51 Active 1 lozenge MUCMEM Q4H PRN Lactated Ringers [Ringers, Lactated] 1,000 ml Med 03/03/21 10:00 Active IV Q10H Potassium Chloride [Klor-Con M20] Med 03/04/21 10:00 Once 40 meq PO ONETIME ONE Remove Patch Med 03/03/21 11:45 Active 1 ea TRDERM Q24H Medication Orders Acetaminophen (Acetaminophen 325 Mg Tab) 650 mg PO Q4H PRN PRN Reason: Fever Last Admin: 03/02/21 19:20 Dose: 650 mg Documented by: MIMI Acetaminophen/Codeine Phosphate (Acetaminophen/Codeine 300-30 Mg Tab) 1 tab PO QID PRN PRN Reason: Pain Last Admin: 03/04/21 07:32 Dose: 1 tab Documented by: Admin: 03/03/21 18:10 Dose: 1 tab Documented by: Admin: 03/03/21 08:48 Dose: 1 tab Documented by: Admin: 03/02/21 14:55 Dose: 1 tab Documented by: MIMI Albuterol/Ipratropium (Albuterol/Ipratropium 3.0-0.5 Mg/3 Ml Neb Soln) 3 ml NEB Q4HRRT PRN PRN Reason: Shortness Of Breath/wheezing Benzocaine/Menthol (Benzocaine/Cetylpyridinium/Menthol Lozenge) 1 lozenge MUCMEM Q4H PRN PRN Reason: Sore Throat Last Admin: 03/04/21 08:30 Dose: 1 lozenge Documented by: MARAH Cosigned by: HORTENCIA Dextrose/Water (50% Dextrose In Water 50 Ml Syringe) 50 ml IV ASDIRECTED PRN PRN Reason: Hypoglycemia Glucagon (Glucagon,Human Recombinant 1 Mg Vial) 1 mg IM ASDIRECTED PRN PRN Reason: Hypoglycemia Piperacillin Sod/Tazobactam (Sod 3.375 gm/ Sodium Chloride) 50 mls @ 100 mls/hr IV Q8H [facility] Last Admin: 03/04/21 08:41 Dose: 100 mls/hr Documented by: MARAH Cosigned by: HORTENCIA Infusion: 03/04/21 02:10 Dose: 100 mls/hr Documented by: MARAH Cosigned by: HORTENCIA Admin: 03/04/21 01:40 Dose: 100 mls/hr Documented by: Infusion: 03/03/21 17:06 Dose: 100 mls/hr Documented by: Admin: 03/03/21 16:36 Dose: 100 mls/hr Documented by: Infusion: 03/03/21 09:18 Dose: 100 mls/hr Documented by: Admin: 03/03/21 08:48 Dose: 100 mls/hr Documented by: Infusion: 03/03/21 01:33 Dose: 100 mls/hr Documented by: Admin: 03/03/21 01:03 Dose: 100 mls/hr Documented by: Infusion: 03/02/21 17:25 Dose: 100 mls/hr Documented by: Admin: 03/02/21 16:55 Dose: 100 mls/hr Documented by: MIMI Pantoprazole Sodium 40 mg/ (Sodium Chloride) 10 mls @ 200 mls/hr IV Q12HR [facility] Last Admin: 03/04/21 08:38 Dose: 200 mls/hr Documented by: MARAH Cosigned by: HORTENCIA Infusion: 03/03/21 22:03 Dose: 200 mls/hr Documented by: MARAH Cosigned by: HORTENCIA Admin: 03/03/21 22:00 Dose: 200 mls/hr Documented by: Infusion: 03/03/21 08:50 Dose: 200 mls/hr Documented by: Admin: 03/03/21 08:47 Dose: 200 mls/hr Documented by: Infusion: 03/02/21 20:57 Dose: 200 mls/hr Documented by: Admin: 03/02/21 20:54 Dose: 200 mls/hr Documented by: Infusion: 03/02/21 12:24 Dose: 200 mls/hr Documented by: Admin: 03/02/21 12:21 Dose: 200 mls/hr Documented by: MIMI Lactated Ringer's (Ringers, Lactated) 1,000 mls @ 100 mls/hr IV Q10H [facility] Last Admin: 03/04/21 04:23 Dose: 100 mls/hr Documented by: Infusion: 03/04/21 02:36 Dose: 100 mls/hr Documented by: Admin: 03/03/21 16:36 Dose: 100 mls/hr Documented by: LEE Insulin Aspart (Insulin Aspart 100 Units/Ml 3 Ml Pen) 0 unit SUBCUT TIDAC [facility]; Protocol Last Admin: 03/04/21 07:40 Dose: Not Given Documented by: Admin: 03/03/21 19:22 Dose: Not Given Documented by: Admin: 03/03/21 13:52 Dose: Not Given Documented by: Admin: 03/03/21 06:34 Dose: Not Given Documented by: Admin: 03/02/21 17:10 Dose: Not Given Documented by: MIMI Lidocaine (Lidocaine 5% 700 Mg Patch) 700 mg TRDERM Q24H [facility] Last Admin: 03/03/21 23:41 Dose: 700 mg Documented by: Admin: 03/03/21 01:03 Dose: 700 mg Documented by: OCTAVIO Miscellaneous Information (Remove Patch) 1 ea TRDERM Q24H [facility] Last Admin: 03/03/21 13:58 Dose: 1 ea Documented by: SHRUTHI Morphine Sulfate (Morphine 2 Mg/Ml Syringe) 1 mg IVPUSH Q4H PRN PRN Reason: Pain (severe 7-10) Last Admin: 03/04/21 09:34 Dose: 1 mg Documented by: Admin: 03/04/21 04:24 Dose: 1 mg Documented by: Admin: 03/03/21 22:19 Dose: 1 mg Documented by: Admin: 03/03/21 14:54 Dose: 1 mg Documented by: Admin: 03/03/21 07:22 Dose: 1 mg Documented by: [email or web address] Admin: 03/02/21 17:51 Dose: 1 mg Documented by: MIMI Ondansetron HCl (Ondansetron 4 Mg/2 Ml Sdv) 4 mg IVPUSH Q4H PRN PRN Reason: Nausea/Vomiting Potassium Chloride (Potassium Chloride 20 Meq Tab.Er) 40 meq PO ONETIME ONE Stop: 03/04/21 10:01 Trazodone HCl (Trazodone 50 Mg Tab) 50 mg PO BEDTIME [facility] Last Admin: 03/03/21 22:00 Dose: 50 mg Documented by: Admin: 03/02/21 20:57 Dose: 50 mg Documented by: OCTAVIO - Assessment Assessment (Free Text/Narrative):: clinically doing very well; avss, abd pain almost all resolved; h/h stable at 10; would reconfirm appointment with radiologist at dr. 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 recommend advance diet, home, fu w me prn. Talked to buyer planner, Marc, pt would to arrange a ride with family member/friend for the procedure. - Plan Plan (Free Text/Narrative):: clinically doing very well; avss, abd pain almost all resolved; h/h stable at 10; would reconfirm appointment with radiologist at dr. 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 recommend advance diet, home, fu w me prn. Talked to buyer planner, Marc, pt would to arrange a ride with family member/friend for the procedure.
[2021-03-04] MEDS ORDERED: HYDROmorphone 1 MG/ML Syringe IVPUSH PRN (10:30)
[2021-03-04] MEDS ORDERED: oxyCODONE 5 MG Tab PO PRN (10:30)
--- NOTE | 2021-03-04 13:11 | PCM.PN ---
- General Info Date of Service: 03/04/21 Admission Dx/Problem (Free Text): Admission Diagnosis/Problem Admission Diagnosis/Problem Abdominal mass Subjective Update: patient seen at bedside, much better pain control, resting comfortably, Vitals stable, anxious, tearful, to go to [place], requesting ambulance Functional Status: Reports: Tolerating Diet, Ambulating, Urinating - Review of Systems General: Denies: Weakness, Fatigue Pulmonary: Denies: Shortness of Breath, Pleuritic Chest Pain Cardiovascular: Denies: Chest Pain, Palpitations, Dyspnea on Exertion Gastrointestinal: Denies: Abdominal Pain, Constipation, Decreased Appetite, Diarrhea Genitourinary: Denies: Dysuria, Frequency Musculoskeletal: Reports: Back Pain, Leg Pain Skin: Denies: Cyanosis, Jaundice Neurological: Denies: Confusion, Dizziness, Headache - Patient Data Vitals - Most Recent: Last Vital Signs Temp 36.3 C 03/04/21 12:17 Pulse 90 03/04/21 12:17 Resp 16 03/04/21 12:17 BP 147/69 H 03/04/21 12:17 Pulse Ox 97 03/04/21 12:17 Weight - Most Recent: 81.42 kg I&O - Last 24 Hours: Intake & Output 03/03/21 03/04/21 03/04/21 22:59 06:59 14:59 Intake Total 650 2573 Output Total 550 650 Balance 100 1923 Lab Results Last 24 Hours: Laboratory Results - last 24 hr 03/03/21 03/03/21 03/03/21 Range/Units 15:44 15:44 17:45 WBC 18.96 H (4.0-11.0) K/uL RBC 3.73 L (4.30-5.90) M/uL Hgb 10.0 L (12.0-16.0) g/dL Hct 30.3 L (36.0-46.0) % MCV 81.2 (80.0-98.0) fL MCH 26.8 L (27.0-32.0) pg MCHC 33.0 (31.0-37.0) g/dL RDW Std Deviation 51.8 (28.0-62.0) fl RDW Coeff of Masoud 18 H (11.0-15.0) % Plt Count 462 H (150-400) K/uL MPV 8.20 (7.40-12.00) fL Neut % (Auto) 81.3 H (48.0-80.0) % Lymph % (Auto) 11.3 L (16.0-40.0) % [place] % (Auto) 6.7 (0.0-15.0) % Eos % (Auto) 0.5 (0.0-7.0) % Baso % (Auto) 0.2 (0.0-1.5) % Neut # (Auto) 15.4 H (1.4-5.7) K/uL Lymph # (Auto) 2.1 (0.6-2.4) K/uL [place] # (Auto) 1.3 H (0.0-0.8) K/uL Eos # (Auto) 0.1 (0.0-0.7) K/uL Baso # (Auto) 0.0 (0.0-0.1) K/uL Add Manual Diff Neutrophils % (Manual) (48.0-80.0) % Band Neutrophils % % Lymphocytes % (Manual) (16.0-40.0) % Monocytes % (Manual) (0.0-15.0) % Nucleated RBC % 0.0 /100WBC Absolute Seg Neuts (1.4-5.7) Band Neutrophils # Lymphocytes # (Manual) (0.6-2.4) Monocytes # (Manual) (0.0-0.8) Nucleated RBCs # 0 K/uL Sodium 131 L (136-145) mmol/L Potassium 3.6 (3.5-5.1) mmol/L Chloride 93 L (98-107) mmol/L Carbon Dioxide 24.5 (21.0-32.0) mmol/L BUN 24 H (7.0-18.0) mg/dL Creatinine 2.1 H (0.6-1.0) mg/dL Est Cr Clr Drug Dosing 17.97 mL/min Estimated GFR (MDRD) 22.7 ml/min Glucose 104 (74-106) mg/dL POC Glucose 96 (70-99) mg/dL Calcium 9.2 (8.5-10.1) mg/dL Phosphorus (2.6-4.7) mg/dL Magnesium (1.8-2.4) mg/dL 03/04/21 03/04/21 03/04/21 Range/Units 04:48 04:48 07:48 WBC 17.45 H (4.0-11.0) K/uL RBC 3.73 L (4.30-5.90) M/uL Hgb 9.9 L (12.0-16.0) g/dL Hct 30.3 L (36.0-46.0) % MCV 81.2 (80.0-98.0) fL MCH 26.5 L (27.0-32.0) pg MCHC 32.7 (31.0-37.0) g/dL RDW Std Deviation 52.2 (28.0-62.0) fl RDW Coeff of Masoud 17 H (11.0-15.0) % Plt Count 504 H (150-400) K/uL MPV 8.50 (7.40-12.00) fL Neut % (Auto) (48.0-80.0) % Lymph % (Auto) (16.0-40.0) % [place] % (Auto) (0.0-15.0) % Eos % (Auto) (0.0-7.0) % Baso % (Auto) (0.0-1.5) % Neut # (Auto) (1.4-5.7) K/uL Lymph # (Auto) (0.6-2.4) K/uL [place] # (Auto) (0.0-0.8) K/uL Eos # (Auto) (0.0-0.7) K/uL Baso # (Auto) (0.0-0.1) K/uL Add Manual Diff YES Neutrophils % (Manual) 77 (48.0-80.0) % Band Neutrophils % 4 % Lymphocytes % (Manual) 14 L (16.0-40.0) % Monocytes % (Manual) 5 (0.0-15.0) % Nucleated RBC % 0.0 /100WBC Absolute Seg Neuts 13.4 H (1.4-5.7) Band Neutrophils # 0.7 Lymphocytes # (Manual) 2.4 (0.6-2.4) Monocytes # (Manual) 0.9 H (0.0-0.8) Nucleated RBCs # 0 K/uL Sodium 131 L (136-145) mmol/L Potassium 3.4 L (3.5-5.1) mmol/L Chloride 95 L (98-107) mmol/L Carbon Dioxide 24.1 (21.0-32.0) mmol/L BUN 21 H (7.0-18.0) mg/dL Creatinine 2.1 H (0.6-1.0) mg/dL Est Cr Clr Drug Dosing 17.97 mL/min Estimated GFR (MDRD) 22.7 ml/min Glucose 89 (74-106) mg/dL POC Glucose 100 H (70-99) mg/dL Calcium 8.7 (8.5-10.1) mg/dL Phosphorus 3.4 (2.6-4.7) mg/dL Magnesium 1.9 (1.8-2.4) mg/dL 03/04/21 Range/Units 11:37 WBC (4.0-11.0) K/uL RBC (4.30-5.90) M/uL Hgb (12.0-16.0) g/dL Hct (36.0-46.0) % MCV (80.0-98.0) fL MCH (27.0-32.0) pg MCHC (31.0-37.0) g/dL RDW Std Deviation (28.0-62.0) fl RDW Coeff of Masoud (11.0-15.0) % Plt Count (150-400) K/uL MPV (7.40-12.00) fL Neut % (Auto) (48.0-80.0) % Lymph % (Auto) (16.0-40.0) % [place] % (Auto) (0.0-15.0) % Eos % (Auto) (0.0-7.0) % Baso % (Auto) (0.0-1.5) % Neut # (Auto) (1.4-5.7) K/uL Lymph # (Auto) (0.6-2.4) K/uL [place] # (Auto) (0.0-0.8) K/uL Eos # (Auto) (0.0-0.7) K/uL Baso # (Auto) (0.0-0.1) K/uL Add Manual Diff Neutrophils % (Manual) (48.0-80.0) % Band Neutrophils % % Lymphocytes % (Manual) (16.0-40.0) % Monocytes % (Manual) (0.0-15.0) % Nucleated RBC % /100WBC Absolute Seg Neuts (1.4-5.7) Band Neutrophils # Lymphocytes # (Manual) (0.6-2.4) Monocytes # (Manual) (0.0-0.8) Nucleated RBCs # K/uL Sodium (136-145) mmol/L Potassium (3.5-5.1) mmol/L Chloride (98-107) mmol/L Carbon Dioxide (21.0-32.0) mmol/L BUN (7.0-18.0) mg/dL Creatinine (0.6-1.0) mg/dL Est Cr Clr Drug Dosing mL/min Estimated GFR (MDRD) ml/min Glucose (74-106) mg/dL POC Glucose 117 H (70-99) mg/dL Calcium (8.5-10.1) mg/dL Phosphorus (2.6-4.7) mg/dL Magnesium (1.8-2.4) mg/dL Cipriano Results Last 24 Hours: Microbiology 03/02/21 16:35 Urine Culture - Final Urine, Clean Catch Klebsiella Pneumoniae 03/02/21 12:55 Aerobic Blood Culture - Preliminary Blood - Venous - Lab Draw NO GROWTH AFTER 1 DAY Anaerobic Blood Culture - Final 03/02/21 12:45 Aerobic Blood Culture - Preliminary Blood - Venous NO GROWTH AFTER 1 DAY Anaerobic Blood Culture - Preliminary NO GROWTH AFTER 1 DAY Med Orders - Current: Current Medications Acetaminophen (Acetaminophen 325 Mg Tab) 650 mg PO Q4H PRN PRN Reason: Fever Last Admin: 03/02/21 19:20 Dose: 650 mg Documented by: Acetaminophen/Codeine Phosphate (Acetaminophen/Codeine 300-30 Mg Tab) 1 tab PO QID PRN PRN Reason: Moderate Pain (4-6) Last Admin: 03/04/21 07:32 Dose: 1 tab Documented by: Albuterol/Ipratropium (Albuterol/Ipratropium 3.0-0.5 Mg/3 Ml Neb Soln) 3 ml NEB Q4HRRT PRN PRN Reason: Shortness Of Breath/wheezing Benzocaine/Menthol (Benzocaine/Cetylpyridinium/Menthol Lozenge) 1 lozenge MUCMEM Q4H PRN PRN Reason: Sore Throat Last Admin: 03/04/21 08:30 Dose: 1 lozenge Documented by: Dextrose/Water (50% Dextrose In Water 50 Ml Syringe) 50 ml IV ASDIRECTED PRN PRN Reason: Hypoglycemia Glucagon (Glucagon,Human Recombinant 1 Mg Vial) 1 mg IM ASDIRECTED PRN PRN Reason: Hypoglycemia Hydromorphone HCl (Hydromorphone 1 Mg/Ml Syringe) 0.5 mg IVPUSH Q4H PRN PRN Reason: Severe Pain (7-10) Piperacillin Sod/Tazobactam (Sod 3.375 gm/ Sodium Chloride) 50 mls @ 100 mls/hr IV Q8H [facility] Last Admin: 03/04/21 08:41 Dose: 100 mls/hr Documented by: Pantoprazole Sodium 40 mg/ (Sodium Chloride) 10 mls @ 200 mls/hr IV Q12HR [facility] Last Admin: 03/04/21 08:38 Dose: 200 mls/hr Documented by: Insulin Aspart (Insulin Aspart 100 Units/Ml 3 Ml Pen) 0 unit SUBCUT TIDAC [facility]; Protocol Last Admin: 03/04/21 11:56 Dose: Not Given Documented by: Lidocaine (Lidocaine 5% 700 Mg Patch) 700 mg TRDERM Q24H [facility] Last Admin: 03/03/21 23:41 Dose: 700 mg Documented by: Miscellaneous Information (Remove Patch) 1 ea TRDERM Q24H [facility] Last Admin: 03/04/21 11:40 Dose: 1 ea Documented by: Ondansetron HCl (Ondansetron 4 Mg/2 Ml Sdv) 4 mg IVPUSH Q4H PRN PRN Reason: Nausea/Vomiting Oxycodone HCl (Oxycodone 5 Mg Tab) 5 mg PO Q4H PRN PRN Reason: Severe Pain (7-10) Trazodone HCl (Trazodone 50 Mg Tab) 50 mg PO BEDTIME [facility] Last Admin: 03/03/21 22:00 Dose: 50 mg Documented by: Discontinued Medications Acetaminophen (Acetaminophen 325 Mg Tab) 650 mg PO Q4H PRN PRN Reason: Pain (Mild 1-3)/fever Hydromorphone HCl (Hydromorphone 1 Mg/Ml Syringe) 1 mg IVPUSH ONETIME ONE Stop: 03/03/21 00:16 Last Admin: 03/03/21 01:09 Dose: 1 mg Documented by: Piperacillin Sod/Tazobactam (Sod 3.375 gm/ Sodium Chloride) 50 mls @ 100 mls/hr IV ONETIME ONE Stop: 03/02/21 09:53 Last Admin: 03/02/21 09:44 Dose: 100 mls/hr Documented by: Sodium Chloride (Normal Saline) 1,000 mls @ 1,000 mls/hr IV .Bolus ONE Stop: 03/02/21 10:34 Last Admin: 03/02/21 09:44 Dose: 1,000 mls/hr Documented by: Lactated Ringer's (Ringers, Lactated) 1,000 mls @ 999 mls/hr IV .BOLUS ONE Stop: 03/02/21 12:45 Last Admin: 03/02/21 12:25 Dose: 999 mls/hr Documented by: Lactated Ringer's (Ringers, Lactated) 1,000 mls @ 125 mls/hr IV Q8H [facility] Last Admin: 03/02/21 21:54 Dose: 125 mls/hr Documented by: Magnesium Sulfate (Magnesium Sulfate In Water 2 Gm/50 Ml) 2 gm in 50 mls @ 50 mls/hr IV ONETIME ONE Stop: 03/03/21 10:45 Last Admin: 03/03/21 10:23 Dose: 50 mls/hr Documented by: Lactated Ringer's (Ringers, Lactated) 1,000 mls @ 100 mls/hr IV Q10H [facility] Last Admin: 03/04/21 04:23 Dose: 100 mls/hr Documented by: Ketorolac Tromethamine (Ketorolac 30 Mg/Ml Sdv) 30 mg IVPUSH ONETIME ONE Stop: 03/02/21 07:33 Last Admin: 03/02/21 07:43 Dose: 30 mg Documented by: Lorazepam (Lorazepam 2 Mg/Ml Sdv) 1 mg IVPUSH ONETIME ONE Stop: 03/02/21 23:58 Last Admin: 03/03/21 01:07 Dose: 1 mg Documented by: Morphine Sulfate (Morphine 2 Mg/Ml Syringe) 1 mg IVPUSH Q4H PRN PRN Reason: Pain (severe 7-10) Last Admin: 03/04/21 09:34 Dose: 1 mg Documented by: Morphine Sulfate (Morphine 4 Mg/Ml Syringe) 4 mg IVPUSH ONETIME ONE Stop: 03/02/21 21:43 Last Admin: 03/02/21 22:21 Dose: 4 mg Documented by: Potassium Chloride (Potassium Chloride 10 Meq Tab.Er) 40 meq PO ONETIME ONE Stop: 03/03/21 10:01 Last Admin: 03/03/21 10:22 Dose: 40 meq Documented by: Potassium Chloride (Potassium Chloride 20 Meq Tab.Er) 40 meq PO ONETIME ONE Stop: 03/04/21 10:01 Last Admin: 03/04/21 10:12 Dose: 40 meq Documented by: - Exam Quality Assessment: Supplemental Oxygen General: Alert Neck: Supple Lungs: Clear to Auscultation, Normal Respiratory Effort Cardiovascular: Regular Rate, Regular Rhythm GI/Abdominal Exam: Normal Bowel Sounds, Soft, Non-Tender Back Exam: Normal Inspection Extremities: Normal Inspection, Normal Range of Motion - Patient Data Lab Results Last 24 hrs: Laboratory Results - last 24 hr 03/03/21 03/03/21 03/03/21 Range/Units 15:44 15:44 17:45 WBC 18.96 H (4.0-11.0) K/uL RBC 3.73 L (4.30-5.90) M/uL Hgb 10.0 L (12.0-16.0) g/dL Hct 30.3 L (36.0-46.0) % MCV 81.2 (80.0-98.0) fL MCH 26.8 L (27.0-32.0) pg MCHC 33.0 (31.0-37.0) g/dL RDW Std Deviation 51.8 (28.0-62.0) fl RDW Coeff of Masoud 18 H (11.0-15.0) % Plt Count 462 H (150-400) K/uL MPV 8.20 (7.40-12.00) fL Neut % (Auto) 81.3 H (48.0-80.0) % Lymph % (Auto) 11.3 L (16.0-40.0) % [place] % (Auto) 6.7 (0.0-15.0) % Eos % (Auto) 0.5 (0.0-7.0) % Baso % (Auto) 0.2 (0.0-1.5) % Neut # (Auto) 15.4 H (1.4-5.7) K/uL Lymph # (Auto) 2.1 (0.6-2.4) K/uL [place] # (Auto) 1.3 H (0.0-0.8) K/uL Eos # (Auto) 0.1 (0.0-0.7) K/uL Baso # (Auto) 0.0 (0.0-0.1) K/uL Add Manual Diff Neutrophils % (Manual) (48.0-80.0) % Band Neutrophils % % Lymphocytes % (Manual) (16.0-40.0) % Monocytes % (Manual) (0.0-15.0) % Nucleated RBC % 0.0 /100WBC Absolute Seg Neuts (1.4-5.7) Band Neutrophils # Lymphocytes # (Manual) (0.6-2.4) Monocytes # (Manual) (0.0-0.8) Nucleated RBCs # 0 K/uL Sodium 131 L (136-145) mmol/L Potassium 3.6 (3.5-5.1) mmol/L Chloride 93 L (98-107) mmol/L Carbon Dioxide 24.5 (21.0-32.0) mmol/L BUN 24 H (7.0-18.0) mg/dL Creatinine 2.1 H (0.6-1.0) mg/dL Est Cr Clr Drug Dosing 17.97 mL/min Estimated GFR (MDRD) 22.7 ml/min Glucose 104 (74-106) mg/dL POC Glucose 96 (70-99) mg/dL Calcium 9.2 (8.5-10.1) mg/dL Phosphorus (2.6-4.7) mg/dL Magnesium (1.8-2.4) mg/dL 03/04/21 03/04/21 03/04/21 Range/Units 04:48 04:48 07:48 WBC 17.45 H (4.0-11.0) K/uL RBC 3.73 L (4.30-5.90) M/uL Hgb 9.9 L (12.0-16.0) g/dL Hct 30.3 L (36.0-46.0) % MCV 81.2 (80.0-98.0) fL MCH 26.5 L (27.0-32.0) pg MCHC 32.7 (31.0-37.0) g/dL RDW Std Deviation 52.2 (28.0-62.0) fl RDW Coeff of Masoud 17 H (11.0-15.0) % Plt Count 504 H (150-400) K/uL MPV 8.50 (7.40-12.00) fL Neut % (Auto) (48.0-80.0) % Lymph % (Auto) (16.0-40.0) % [place] % (Auto) (0.0-15.0) % Eos % (Auto) (0.0-7.0) % Baso % (Auto) (0.0-1.5) % Neut # (Auto) (1.4-5.7) K/uL Lymph # (Auto) (0.6-2.4) K/uL [place] # (Auto) (0.0-0.8) K/uL Eos # (Auto) (0.0-0.7) K/uL Baso # (Auto) (0.0-0.1) K/uL Add Manual Diff YES Neutrophils % (Manual) 77 (48.0-80.0) % Band Neutrophils % 4 % Lymphocytes % (Manual) 14 L (16.0-40.0) % Monocytes % (Manual) 5 (0.0-15.0) % Nucleated RBC % 0.0 /100WBC Absolute Seg Neuts 13.4 H (1.4-5.7) Band Neutrophils # 0.7 Lymphocytes # (Manual) 2.4 (0.6-2.4) Monocytes # (Manual) 0.9 H (0.0-0.8) Nucleated RBCs # 0 K/uL Sodium 131 L (136-145) mmol/L Potassium 3.4 L (3.5-5.1) mmol/L Chloride 95 L (98-107) mmol/L Carbon Dioxide 24.1 (21.0-32.0) mmol/L BUN 21 H (7.0-18.0) mg/dL Creatinine 2.1 H (0.6-1.0) mg/dL Est Cr Clr Drug Dosing 17.97 mL/min Estimated GFR (MDRD) 22.7 ml/min Glucose 89 (74-106) mg/dL POC Glucose 100 H (70-99) mg/dL Calcium 8.7 (8.5-10.1) mg/dL Phosphorus 3.4 (2.6-4.7) mg/dL Magnesium 1.9 (1.8-2.4) mg/dL 03/04/21 Range/Units 11:37 WBC (4.0-11.0) K/uL RBC (4.30-5.90) M/uL Hgb (12.0-16.0) g/dL Hct (36.0-46.0) % MCV (80.0-98.0) fL MCH (27.0-32.0) pg MCHC (31.0-37.0) g/dL RDW Std Deviation (28.0-62.0) fl RDW Coeff of Masoud (11.0-15.0) % Plt Count (150-400) K/uL MPV (7.40-12.00) fL Neut % (Auto) (48.0-80.0) % Lymph % (Auto) (16.0-40.0) % [place] % (Auto) (0.0-15.0) % Eos % (Auto) (0.0-7.0) % Baso % (Auto) (0.0-1.5) % Neut # (Auto) (1.4-5.7) K/uL Lymph # (Auto) (0.6-2.4) K/uL [place] # (Auto) (0.0-0.8) K/uL Eos # (Auto) (0.0-0.7) K/uL Baso # (Auto) (0.0-0.1) K/uL Add Manual Diff Neutrophils % (Manual) (48.0-80.0) % Band Neutrophils % % Lymphocytes % (Manual) (16.0-40.0) % Monocytes % (Manual) (0.0-15.0) % Nucleated RBC % /100WBC Absolute Seg Neuts (1.4-5.7) Band Neutrophils # Lymphocytes # (Manual) (0.6-2.4) Monocytes # (Manual) (0.0-0.8) Nucleated RBCs # K/uL Sodium (136-145) mmol/L Potassium (3.5-5.1) mmol/L Chloride (98-107) mmol/L Carbon Dioxide (21.0-32.0) mmol/L BUN (7.0-18.0) mg/dL Creatinine (0.6-1.0) mg/dL Est Cr Clr Drug Dosing mL/min Estimated GFR (MDRD) ml/min Glucose (74-106) mg/dL POC Glucose 117 H (70-99) mg/dL Calcium (8.5-10.1) mg/dL Phosphorus (2.6-4.7) mg/dL Magnesium (1.8-2.4) mg/dL Result Diagrams: 03/04/21 04:48 03/04/21 04:48 Cipriano Results Last 24 hrs: Microbiology 03/02/21 16:35 Urine Culture - Final Urine, Clean Catch Klebsiella Pneumoniae 03/02/21 12:55 Aerobic Blood Culture - Preliminary Blood - Venous - Lab Draw NO GROWTH AFTER 1 DAY Anaerobic Blood Culture - Final 03/02/21 12:45 Aerobic Blood Culture - Preliminary Blood - Venous NO GROWTH AFTER 1 DAY Anaerobic Blood Culture - Preliminary NO GROWTH AFTER 1 DAY Sepsis Event Note - Evaluation Sepsis Screening Result: No Definite Risk - Focused Exam Vital Signs: Vital Signs Temp Pulse Resp BP Pulse Ox 03/04/21 12:17 36.3 C 90 16 147/69 H 97 03/04/21 07:44 35.8 C L 91 16 154/69 H 95 03/04/21 04:29 36.8 C 89 17 155/71 H 95 - Problem List & Annotations (1) Diarrhea SNOMED Code(s): 22060899 Code(s): R19.7 - DIARRHEA, UNSPECIFIED Status: Acute Current Visit: Yes (2) Abdominal mass SNOMED Code(s): 190158955 Code(s): R19.00 - INTRA-ABD AND PELVIC SWELLING, MASS AND LUMP, UNSP SITE Status: Acute Current Visit: Yes (3) Type 2 diabetes mellitus SNOMED Code(s): 41216041 Code(s): E11.9 - TYPE 2 DIABETES MELLITUS WITHOUT COMPLICATIONS Status: Acute Current Visit: No (4) UTI (urinary tract infection) SNOMED Code(s): 16235933 Code(s): N39.0 - URINARY TRACT INFECTION, SITE NOT SPECIFIED Status: Acute Current Visit: No Qualifiers: Urinary tract infection type: acute cystitis Hematuria presence: without hematuria Qualified Code(s): N30.00 - Acute cystitis without hematuria - Problem List Review Problem List Initiated/Reviewed/Updated: Yes - My Orders Last 24 Hours: My Active Orders 03/04/21 02:51 Benzocaine/Cetylpyrd/Menthol [Cepacol Sore Throat] 1 lozenge MUCMEM Q4H PRN 03/04/21 Dinner Clear Liquid Diet [DIET] - Plan Plan:: 80 y/o F admitted for N/V diarrhea and back pain. Was found to have a huge retroperitoneal mass. USG done, noted the size has decreased relatively from prior imaging, possibly chronic hematoma. will stop fluids now Zofran for N/V Morphine switched to Dilaudid for back pain oxycodone PRN SCD for Dvt PPX PT assessed the patient, safe for ambulation, may need walker , wheelchair for support If patient remains hemodynamically stable she may be discharged home with a close follow up with IR at [facility] for which appt has already been made by Dr Leblanc on AM 830 am, patient aware and her close friend who is going to drive her are in agreement of the plan .
[2021-03-04] MEDS: traZODone 50 MG Tab PO SCH (21:44)
[2021-03-04] MEDS ORDERED: Morphine 2 MG/ML SYRINGE IVPUSH SCH ×2 (23:15→23:30)
[2021-03-05] MEDS ORDERED: Morphine 2 MG/ML SYRINGE IVPUSH PRN (00:42)
[2021-03-05] MEDS: Lidocaine 5% 700 MG Patch TRDERM SCH ×2 (00:46→22:56)
[2021-03-05] MEDS: Piperacillin/Tazobactam 3.375 GM in Sodium Chloride 0.9% 50 ML IV SCH ×3 (00:47→17:39)
[2021-03-05] MEDS: Acetaminophen/Codeine 300-30 MG Tab PO PRN ×2 (05:46→15:05)
[2021-03-05] MEDS: Benzocaine/Cetylpyridinium/Menthol Lozenge MUCMEM PRN ×4 (05:48→17:56)
[2021-03-05 06:20] LABS: CARBON DIOXIDE,CO2 23.1 mmol/L (21.0-32.0); POTASSIUM,K 3.5 mmol/L (3.5-5.1)
[2021-03-05] MEDS: Insulin Aspart 100 Units/ML 3 ML Pen SUBCUT SCH ×3 (07:30→17:57)
[2021-03-05] MEDS: Pantoprazole 40 MG in Sodium Chloride 0.9% 10 ML IV SCH ×2 (09:26→20:07)
--- NOTE | 2021-03-05 12:13 | PCM.SURGPN ---
- General Info Date of Service: 03/05/21 Functional Status: Reports: Pain Controlled Pain Score: 0 - Review of Systems Gastrointestinal: Reports: No Symptoms (camila po diet; denied any abd pain) - Patient Data Vitals - Most Recent: Last Vital Signs Temp 98.5 F 03/05/21 11:00 Pulse 100 03/05/21 11:00 Resp 18 03/05/21 11:00 BP 138/64 03/05/21 11:00 Pulse Ox 97 03/05/21 11:00 Weight - Most Recent: 186 lb 4 oz I&O - Last 24 Hours: Intake & Output 03/04/21 03/05/21 03/05/21 22:59 06:59 14:59 Intake Total 1360 400 Output Total 600 700 Balance 760 -300 Lab Results Last 24 Hrs: Laboratory Results - last 24 hr 03/04/21 03/05/21 03/05/21 Range/Units 17:17 05:23 05:23 WBC 17.21 H (4.0-11.0) K/uL RBC 3.34 L (4.30-5.90) M/uL Hgb 9.0 L (12.0-16.0) g/dL Hct 27.3 L (36.0-46.0) % MCV 81.7 (80.0-98.0) fL MCH 26.9 L (27.0-32.0) pg MCHC 33.0 (31.0-37.0) g/dL RDW Std Deviation 53.4 (28.0-62.0) fl RDW Coeff of Masoud 18 H (11.0-15.0) % Plt Count 468 H (150-400) K/uL MPV 8.20 (7.40-12.00) fL Add Manual Diff YES Neutrophils % (Manual) 76 (48.0-80.0) % Band Neutrophils % 4 % Lymphocytes % (Manual) 13 L (16.0-40.0) % Monocytes % (Manual) 5 (0.0-15.0) % Metamyelocytes % 2 % Nucleated RBC % 0.0 /100WBC Absolute Seg Neuts 13.1 H (1.4-5.7) Band Neutrophils # 0.7 Lymphocytes # (Manual) 2.2 (0.6-2.4) Monocytes # (Manual) 0.9 H (0.0-0.8) Absolute Metamyelocyte 0.3 Nucleated RBCs # 0 K/uL Sodium 131 L (136-145) mmol/L Potassium 3.5 (3.5-5.1) mmol/L Chloride 96 L (98-107) mmol/L Carbon Dioxide 23.1 (21.0-32.0) mmol/L BUN 21 H (7.0-18.0) mg/dL Creatinine 2.2 H (0.6-1.0) mg/dL Est Cr Clr Drug Dosing 17.15 mL/min Estimated GFR (MDRD) 21.5 ml/min Glucose 114 H (74-106) mg/dL POC Glucose 144 H (70-99) mg/dL Calcium 8.3 L (8.5-10.1) mg/dL Phosphorus 3.3 (2.6-4.7) mg/dL Magnesium 1.7 L (1.8-2.4) mg/dL 03/05/21 03/05/21 Range/Units 07:51 11:51 WBC (4.0-11.0) K/uL RBC (4.30-5.90) M/uL Hgb (12.0-16.0) g/dL Hct (36.0-46.0) % MCV (80.0-98.0) fL MCH (27.0-32.0) pg MCHC (31.0-37.0) g/dL RDW Std Deviation (28.0-62.0) fl RDW Coeff of Masoud (11.0-15.0) % Plt Count (150-400) K/uL MPV (7.40-12.00) fL Add Manual Diff Neutrophils % (Manual) (48.0-80.0) % Band Neutrophils % % Lymphocytes % (Manual) (16.0-40.0) % Monocytes % (Manual) (0.0-15.0) % Metamyelocytes % % Nucleated RBC % /100WBC Absolute Seg Neuts (1.4-5.7) Band Neutrophils # Lymphocytes # (Manual) (0.6-2.4) Monocytes # (Manual) (0.0-0.8) Absolute Metamyelocyte Nucleated RBCs # K/uL Sodium (136-145) mmol/L Potassium (3.5-5.1) mmol/L Chloride (98-107) mmol/L Carbon Dioxide (21.0-32.0) mmol/L BUN (7.0-18.0) mg/dL Creatinine (0.6-1.0) mg/dL Est Cr Clr Drug Dosing mL/min Estimated GFR (MDRD) ml/min Glucose (74-106) mg/dL POC Glucose 114 H 114 H (70-99) mg/dL Calcium (8.5-10.1) mg/dL Phosphorus (2.6-4.7) mg/dL Magnesium (1.8-2.4) mg/dL Cipriano Results Last 24 Hrs: Microbiology 03/02/21 12:55 Aerobic Blood Culture - Preliminary Blood - Venous - Lab Draw NO GROWTH AFTER 2 DAYS Anaerobic Blood Culture - Final 03/02/21 12:45 Aerobic Blood Culture - Preliminary Blood - Venous NO GROWTH AFTER 2 DAYS Anaerobic Blood Culture - Preliminary NO GROWTH AFTER 2 DAYS 03/02/21 16:35 Urine Culture - Final Urine, Clean Catch Klebsiella Pneumoniae Med Orders - Current: Current Medications Acetaminophen (Acetaminophen 325 Mg Tab) 650 mg PO Q4H PRN PRN Reason: Fever Last Admin: 03/02/21 19:20 Dose: 650 mg Documented by: Acetaminophen/Codeine Phosphate (Acetaminophen/Codeine 300-30 Mg Tab) 1 tab PO QID PRN PRN Reason: Moderate Pain (4-6) Last Admin: 03/05/21 05:46 Dose: 1 tab Documented by: Albuterol/Ipratropium (Albuterol/Ipratropium 3.0-0.5 Mg/3 Ml Neb Soln) 3 ml NEB Q4HRRT PRN PRN Reason: Shortness Of Breath/wheezing Benzocaine/Menthol (Benzocaine/Cetylpyridinium/Menthol Lozenge) 1 lozenge MUCMEM Q4H PRN PRN Reason: Sore Throat Last Admin: 03/05/21 09:43 Dose: 1 lozenge Documented by: Dextrose/Water (50% Dextrose In Water 50 Ml Syringe) 50 ml IV ASDIRECTED PRN PRN Reason: Hypoglycemia Glucagon (Glucagon,Human Recombinant 1 Mg Vial) 1 mg IM ASDIRECTED PRN PRN Reason: Hypoglycemia Piperacillin Sod/Tazobactam (Sod 3.375 gm/ Sodium Chloride) 50 mls @ 100 mls/hr IV Q8H [facility] Last Admin: 03/05/21 09:26 Dose: 100 mls/hr Documented by: Pantoprazole Sodium 40 mg/ (Sodium Chloride) 10 mls @ 200 mls/hr IV Q12HR [facility] Last Admin: 03/05/21 09:26 Dose: 200 mls/hr Documented by: Insulin Aspart (Insulin Aspart 100 Units/Ml 3 Ml Pen) 0 unit SUBCUT TIDAC [facility]; Protocol Last Admin: 03/05/21 11:30 Dose: Not Given Documented by: Lidocaine (Lidocaine 5% 700 Mg Patch) 700 mg TRDERM Q24H [facility] Last Admin: 03/05/21 00:46 Dose: 700 mg Documented by: Miscellaneous Information (Remove Patch) 1 ea TRDERM Q24H [facility] Last Admin: 03/04/21 11:40 Dose: 1 ea Documented by: Morphine Sulfate (Morphine 2 Mg/Ml Syringe) 1 mg IVPUSH Q3H PRN PRN Reason: Pain Ondansetron HCl (Ondansetron 4 Mg/2 Ml Sdv) 4 mg IVPUSH Q4H PRN PRN Reason: Nausea/Vomiting Oxycodone HCl (Oxycodone 5 Mg Tab) 5 mg PO Q4H PRN PRN Reason: Severe Pain (7-10) Trazodone HCl (Trazodone 50 Mg Tab) 50 mg PO BEDTIME [facility] Last Admin: 03/04/21 21:44 Dose: 50 mg Documented by: Discontinued Medications Acetaminophen (Acetaminophen 325 Mg Tab) 650 mg PO Q4H PRN PRN Reason: Pain (Mild 1-3)/fever Hydromorphone HCl (Hydromorphone 1 Mg/Ml Syringe) 1 mg IVPUSH ONETIME ONE Stop: 03/03/21 00:16 Last Admin: 03/03/21 01:09 Dose: 1 mg Documented by: Hydromorphone HCl (Hydromorphone 1 Mg/Ml Syringe) 0.5 mg IVPUSH Q4H PRN PRN Reason: Severe Pain (7-10) Last Admin: 03/04/21 15:33 Dose: 0.5 mg Documented by: Piperacillin Sod/Tazobactam (Sod 3.375 gm/ Sodium Chloride) 50 mls @ 100 mls/hr IV ONETIME ONE Stop: 03/02/21 09:53 Last Admin: 03/02/21 09:44 Dose: 100 mls/hr Documented by: Sodium Chloride (Normal Saline) 1,000 mls @ 1,000 mls/hr IV .Bolus ONE Stop: 03/02/21 10:34 Last Admin: 03/02/21 09:44 Dose: 1,000 mls/hr Documented by: Lactated Ringer's (Ringers, Lactated) 1,000 mls @ 999 mls/hr IV .BOLUS ONE Stop: 03/02/21 12:45 Last Admin: 03/02/21 12:25 Dose: 999 mls/hr Documented by: Lactated Ringer's (Ringers, Lactated) 1,000 mls @ 125 mls/hr IV Q8H [facility] Last Admin: 03/02/21 21:54 Dose: 125 mls/hr Documented by: Magnesium Sulfate (Magnesium Sulfate In Water 2 Gm/50 Ml) 2 gm in 50 mls @ 50 mls/hr IV ONETIME ONE Stop: 03/03/21 10:45 Last Admin: 03/03/21 10:23 Dose: 50 mls/hr Documented by: Lactated Ringer's (Ringers, Lactated) 1,000 mls @ 100 mls/hr IV Q10H [facility] Last Admin: 03/04/21 19:38 Dose: Not Given Documented by: Ketorolac Tromethamine (Ketorolac 30 Mg/Ml Sdv) 30 mg IVPUSH ONETIME ONE Stop: 03/02/21 07:33 Last Admin: 03/02/21 07:43 Dose: 30 mg Documented by: Lorazepam (Lorazepam 2 Mg/Ml Sdv) 1 mg IVPUSH ONETIME ONE Stop: 03/02/21 23:58 Last Admin: 03/03/21 01:07 Dose: 1 mg Documented by: Morphine Sulfate (Morphine 2 Mg/Ml Syringe) 1 mg IVPUSH Q4H PRN PRN Reason: Pain (severe 7-10) Last Admin: 03/04/21 09:34 Dose: 1 mg Documented by: Morphine Sulfate (Morphine 4 Mg/Ml Syringe) 4 mg IVPUSH ONETIME ONE Stop: 03/02/21 21:43 Last Admin: 03/02/21 22:21 Dose: 4 mg Documented by: Morphine Sulfate (Morphine 2 Mg/Ml Syringe) 1 mg IVPUSH Q3H [facility] Last Admin: 03/05/21 00:42 Dose: Not Given Documented by: Morphine Sulfate (Morphine 2 Mg/Ml Syringe) 1 mg IVPUSH Q3H [facility] Last Admin: 03/05/21 00:42 Dose: Not Given Documented by: Potassium Chloride (Potassium Chloride 10 Meq Tab.Er) 40 meq PO ONETIME ONE Stop: 03/03/21 10:01 Last Admin: 03/03/21 10:22 Dose: 40 meq Documented by: Potassium Chloride (Potassium Chloride 20 Meq Tab.Er) 40 meq PO ONETIME ONE Stop: 03/04/21 10:01 Last Admin: 03/04/21 10:12 Dose: 40 meq Documented by: - Exam GI/Abdominal Exam: Normal Bowel Sounds, Soft, Non-Tender Sepsis Event Note - Evaluation Sepsis Screening Result: No Definite Risk - Focused Exam Vital Signs: Vital Signs Temp Pulse Resp BP Pulse Ox 03/05/21 11:00 98.5 F 100 18 138/64 97 03/05/21 07:00 97.9 F 90 18 156/77 H 97 03/05/21 05:15 98.1 F 98 16 146/74 H 96 03/05/21 00:40 98.4 F 88 18 137/63 96 - Problem List Review Problem List Initiated/Reviewed/Updated: Yes - My Orders Last 24 Hours: Active Orders 24 hr Category Date Time Status Clear Liquid Diet [DIET] Diet 03/04/21 Dinner Active Morphine Med 03/05/21 00:42 Active 1 mg IVPUSH Q3H PRN Medication Orders Acetaminophen (Acetaminophen 325 Mg Tab) 650 mg PO Q4H PRN PRN Reason: Fever Last Admin: 03/02/21 19:20 Dose: 650 mg Documented by: MIMI Acetaminophen/Codeine Phosphate (Acetaminophen/Codeine 300-30 Mg Tab) 1 tab PO QID PRN PRN Reason: Moderate Pain (4-6) Last Admin: 03/05/21 05:46 Dose: 1 tab Documented by: Admin: 03/04/21 21:43 Dose: 1 tab Documented by: Admin: 03/04/21 07:32 Dose: 1 tab Documented by: Admin: 03/03/21 18:10 Dose: 1 tab Documented by: Admin: 03/03/21 08:48 Dose: 1 tab Documented by: Admin: 03/02/21 14:55 Dose: 1 tab Documented by: MIMI Albuterol/Ipratropium (Albuterol/Ipratropium 3.0-0.5 Mg/3 Ml Neb Soln) 3 ml NEB Q4HRRT PRN PRN Reason: Shortness Of Breath/wheezing Benzocaine/Menthol (Benzocaine/Cetylpyridinium/Menthol Lozenge) 1 lozenge MUCMEM Q4H PRN PRN Reason: Sore Throat Last Admin: 03/05/21 09:43 Dose: 1 lozenge Documented by: Admin: 03/05/21 05:48 Dose: 1 lozenge Documented by: Admin: 03/04/21 21:44 Dose: 1 lozenge Documented by: Admin: 03/04/21 14:29 Dose: 1 lozenge Documented by: Admin: 03/04/21 08:30 Dose: 1 lozenge Documented by: MARAH Cosigned by: HORTENCIA Dextrose/Water (50% Dextrose In Water 50 Ml Syringe) 50 ml IV ASDIRECTED PRN PRN Reason: Hypoglycemia Glucagon (Glucagon,Human Recombinant 1 Mg Vial) 1 mg IM ASDIRECTED PRN PRN Reason: Hypoglycemia Piperacillin Sod/Tazobactam (Sod 3.375 gm/ Sodium Chloride) 50 mls @ 100 mls/hr IV Q8H [facility] Last Admin: 03/05/21 09:26 Dose: 100 mls/hr Documented by: Infusion: 03/05/21 01:17 Dose: 100 mls/hr Documented by: Admin: 03/05/21 00:47 Dose: 100 mls/hr Documented by: Infusion: 03/04/21 17:49 Dose: 100 mls/hr Documented by: Admin: 03/04/21 17:19 Dose: 100 mls/hr Documented by: Infusion: 03/04/21 09:11 Dose: 100 mls/hr Documented by: Admin: 03/04/21 08:41 Dose: 100 mls/hr Documented by: MARAH Cosigned by: HORTENCIA Infusion: 03/04/21 02:10 Dose: 100 mls/hr Documented by: MARAH Cosigned by: HORTENCIA Admin: 03/04/21 01:40 Dose: 100 mls/hr Documented by: Infusion: 03/03/21 17:06 Dose: 100 mls/hr Documented by: Admin: 03/03/21 16:36 Dose: 100 mls/hr Documented by: Infusion: 03/03/21 09:18 Dose: 100 mls/hr Documented by: Admin: 03/03/21 08:48 Dose: 100 mls/hr Documented by: Infusion: 03/03/21 01:33 Dose: 100 mls/hr Documented by: Admin: 03/03/21 01:03 Dose: 100 mls/hr Documented by: Infusion: 03/02/21 17:25 Dose: 100 mls/hr Documented by: Admin: 03/02/21 16:55 Dose: 100 mls/hr Documented by: MIMI Pantoprazole Sodium 40 mg/ (Sodium Chloride) 10 mls @ 200 mls/hr IV Q12HR [facility] Last Admin: 03/05/21 09:26 Dose: 200 mls/hr Documented by: Infusion: 03/04/21 21:42 Dose: 200 mls/hr Documented by: Admin: 03/04/21 21:39 Dose: 200 mls/hr Documented by: Infusion: 03/04/21 08:41 Dose: 200 mls/hr Documented by: Admin: 03/04/21 08:38 Dose: 200 mls/hr Documented by: MARAH Cosigned by: HORTENCIA Infusion: 03/03/21 22:03 Dose: 200 mls/hr Documented by: MARAH Cosigned by: HORTENCIA Admin: 03/03/21 22:00 Dose: 200 mls/hr Documented by: Infusion: 03/03/21 08:50 Dose: 200 mls/hr Documented by: Admin: 03/03/21 08:47 Dose: 200 mls/hr Documented by: Infusion: 03/02/21 20:57 Dose: 200 mls/hr Documented by: Admin: 03/02/21 20:54 Dose: 200 mls/hr Documented by: Infusion: 03/02/21 12:24 Dose: 200 mls/hr Documented by: Admin: 03/02/21 12:21 Dose: 200 mls/hr Documented by: MIMI Insulin Aspart (Insulin Aspart 100 Units/Ml 3 Ml Pen) 0 unit SUBCUT TIDAC [facility]; Protocol Last Admin: 03/05/21 11:30 Dose: Not Given Documented by: Admin: 03/05/21 07:30 Dose: Not Given Documented by: Admin: 03/04/21 17:18 Dose: Not Given Documented by: Admin: 03/04/21 11:56 Dose: Not Given Documented by: Admin: 03/04/21 07:40 Dose: Not Given Documented by: Admin: 03/03/21 19:22 Dose: Not Given Documented by: Admin: 03/03/21 13:52 Dose: Not Given Documented by: Admin: 03/03/21 06:34 Dose: Not Given Documented by: Admin: 03/02/21 17:10 Dose: Not Given Documented by: MIMI Lidocaine (Lidocaine 5% 700 Mg Patch) 700 mg TRDERM Q24H [facility] Last Admin: 03/05/21 00:46 Dose: 700 mg Documented by: Admin: 03/03/21 23:41 Dose: 700 mg Documented by: Admin: 03/03/21 01:03 Dose: 700 mg Documented by: OCTAVIO Miscellaneous Information (Remove Patch) 1 ea TRDERM Q24H [facility] Last Admin: 03/04/21 11:40 Dose: 1 ea Documented by: MARAH Cosigned by: HORTENCIA Admin: 03/03/21 13:58 Dose: 1 ea Documented by: SHRUTHI Morphine Sulfate (Morphine 2 Mg/Ml Syringe) 1 mg IVPUSH Q3H PRN PRN Reason: Pain Ondansetron HCl (Ondansetron 4 Mg/2 Ml Sdv) 4 mg IVPUSH Q4H PRN PRN Reason: Nausea/Vomiting Oxycodone HCl (Oxycodone 5 Mg Tab) 5 mg PO Q4H PRN PRN Reason: Severe Pain (7-10) Trazodone HCl (Trazodone 50 Mg Tab) 50 mg PO BEDTIME [facility] Last Admin: 03/04/21 21:44 Dose: 50 mg Documented by: Admin: 03/03/21 22:00 Dose: 50 mg Documented by: Admin: 03/02/21 20:57 Dose: 50 mg Documented by: [id number] - Assessment Assessment (Free Text/Narrative):: camila po, abd pain resolved; agreed plan discharge; pt has appointment with intervention radiologist Jairo for biopsy hematoma/abscess/complex cyst/soft tissue; fu primary care 1-2 wks for bx results; tks for the consult and care of this pleasant patient; recall if question - Plan Plan (Free Text/Narrative):: camila po, abd pain resolved; agreed plan discharge; pt has appointment with intervention radiologist Jairo for biopsy hematoma/abscess/complex cyst/soft tissue; fu primary care 1-2 wks for bx results; tks for the consult and care of this pleasant patient; recall if question
--- NOTE | 2021-03-05 14:50 | PCM.PN ---
- General Info Date of Service: 03/05/21 Admission Dx/Problem (Free Text): Admission Diagnosis/Problem Admission Diagnosis/Problem Abdominal mass Subjective Update: patient seen at bedside, much better pain control, resting comfortably, Vitals stable, her friend is at bedside - Review of Systems General: Denies: Fever, Weakness Pulmonary: Denies: Shortness of Breath, Pleuritic Chest Pain Cardiovascular: Denies: Chest Pain, Palpitations Gastrointestinal: Denies: Abdominal Pain, Constipation, Nausea, Vomiting Genitourinary: Reports: Frequency. Denies: Burning, Pain Musculoskeletal: Reports: Back Pain. Denies: Shoulder Pain, Leg Pain, Foot Pain Skin: Denies: Jaundice, Mottled - Patient Data Vitals - Most Recent: Last Vital Signs Temp 36.9 C 03/05/21 11:00 Pulse 100 03/05/21 11:00 Resp 18 03/05/21 11:00 BP 138/64 03/05/21 11:00 Pulse Ox 97 03/05/21 11:00 Weight - Most Recent: 84.482 kg I&O - Last 24 Hours: Intake & Output 03/04/21 03/05/21 03/05/21 22:59 06:59 14:59 Intake Total 1360 400 Output Total 600 700 Balance 760 -300 Lab Results Last 24 Hours: Laboratory Results - last 24 hr 03/04/21 03/05/21 03/05/21 Range/Units 17:17 05:23 05:23 WBC 17.21 H (4.0-11.0) K/uL RBC 3.34 L (4.30-5.90) M/uL Hgb 9.0 L (12.0-16.0) g/dL Hct 27.3 L (36.0-46.0) % MCV 81.7 (80.0-98.0) fL MCH 26.9 L (27.0-32.0) pg MCHC 33.0 (31.0-37.0) g/dL RDW Std Deviation 53.4 (28.0-62.0) fl RDW Coeff of Masoud 18 H (11.0-15.0) % Plt Count 468 H (150-400) K/uL MPV 8.20 (7.40-12.00) fL Add Manual Diff YES Neutrophils % (Manual) 76 (48.0-80.0) % Band Neutrophils % 4 % Lymphocytes % (Manual) 13 L (16.0-40.0) % Monocytes % (Manual) 5 (0.0-15.0) % Metamyelocytes % 2 % Nucleated RBC % 0.0 /100WBC Absolute Seg Neuts 13.1 H (1.4-5.7) Band Neutrophils # 0.7 Lymphocytes # (Manual) 2.2 (0.6-2.4) Monocytes # (Manual) 0.9 H (0.0-0.8) Absolute Metamyelocyte 0.3 Nucleated RBCs # 0 K/uL Sodium 131 L (136-145) mmol/L Potassium 3.5 (3.5-5.1) mmol/L Chloride 96 L (98-107) mmol/L Carbon Dioxide 23.1 (21.0-32.0) mmol/L BUN 21 H (7.0-18.0) mg/dL Creatinine 2.2 H (0.6-1.0) mg/dL Est Cr Clr Drug Dosing 17.15 mL/min Estimated GFR (MDRD) 21.5 ml/min Glucose 114 H (74-106) mg/dL POC Glucose 144 H (70-99) mg/dL Calcium 8.3 L (8.5-10.1) mg/dL Phosphorus 3.3 (2.6-4.7) mg/dL Magnesium 1.7 L (1.8-2.4) mg/dL 03/05/21 03/05/21 Range/Units 07:51 11:51 WBC (4.0-11.0) K/uL RBC (4.30-5.90) M/uL Hgb (12.0-16.0) g/dL Hct (36.0-46.0) % MCV (80.0-98.0) fL MCH (27.0-32.0) pg MCHC (31.0-37.0) g/dL RDW Std Deviation (28.0-62.0) fl RDW Coeff of Masoud (11.0-15.0) % Plt Count (150-400) K/uL MPV (7.40-12.00) fL Add Manual Diff Neutrophils % (Manual) (48.0-80.0) % Band Neutrophils % % Lymphocytes % (Manual) (16.0-40.0) % Monocytes % (Manual) (0.0-15.0) % Metamyelocytes % % Nucleated RBC % /100WBC Absolute Seg Neuts (1.4-5.7) Band Neutrophils # Lymphocytes # (Manual) (0.6-2.4) Monocytes # (Manual) (0.0-0.8) Absolute Metamyelocyte Nucleated RBCs # K/uL Sodium (136-145) mmol/L Potassium (3.5-5.1) mmol/L Chloride (98-107) mmol/L Carbon Dioxide (21.0-32.0) mmol/L BUN (7.0-18.0) mg/dL Creatinine (0.6-1.0) mg/dL Est Cr Clr Drug Dosing mL/min Estimated GFR (MDRD) ml/min Glucose (74-106) mg/dL POC Glucose 114 H 114 H (70-99) mg/dL Calcium (8.5-10.1) mg/dL Phosphorus (2.6-4.7) mg/dL Magnesium (1.8-2.4) mg/dL Cipriano Results Last 24 Hours: Microbiology 03/02/21 12:55 Aerobic Blood Culture - Preliminary Blood - Venous - Lab Draw NO GROWTH AFTER 3 DAYS Anaerobic Blood Culture - Final 03/02/21 12:45 Aerobic Blood Culture - Preliminary Blood - Venous NO GROWTH AFTER 3 DAYS Anaerobic Blood Culture - Preliminary NO GROWTH AFTER 3 DAYS Med Orders - Current: Current Medications Acetaminophen (Acetaminophen 325 Mg Tab) 650 mg PO Q4H PRN PRN Reason: Fever Last Admin: 03/02/21 19:20 Dose: 650 mg Documented by: Acetaminophen/Codeine Phosphate (Acetaminophen/Codeine 300-30 Mg Tab) 1 tab PO QID PRN PRN Reason: Moderate Pain (4-6) Last Admin: 03/05/21 05:46 Dose: 1 tab Documented by: Albuterol/Ipratropium (Albuterol/Ipratropium 3.0-0.5 Mg/3 Ml Neb Soln) 3 ml NEB Q4HRRT PRN PRN Reason: Shortness Of Breath/wheezing Benzocaine/Menthol (Benzocaine/Cetylpyridinium/Menthol Lozenge) 1 lozenge MUCMEM Q4H PRN PRN Reason: Sore Throat Last Admin: 03/05/21 09:43 Dose: 1 lozenge Documented by: Dextrose/Water (50% Dextrose In Water 50 Ml Syringe) 50 ml IV ASDIRECTED PRN PRN Reason: Hypoglycemia Glucagon (Glucagon,Human Recombinant 1 Mg Vial) 1 mg IM ASDIRECTED PRN PRN Reason: Hypoglycemia Piperacillin Sod/Tazobactam (Sod 3.375 gm/ Sodium Chloride) 50 mls @ 100 mls/hr IV Q8H [facility] Last Admin: 03/05/21 09:26 Dose: 100 mls/hr Documented by: Pantoprazole Sodium 40 mg/ (Sodium Chloride) 10 mls @ 200 mls/hr IV Q12HR [facility] Last Admin: 03/05/21 09:26 Dose: 200 mls/hr Documented by: Insulin Aspart (Insulin Aspart 100 Units/Ml 3 Ml Pen) 0 unit SUBCUT TIDAC [facility]; Protocol Last Admin: 03/05/21 11:30 Dose: Not Given Documented by: Lidocaine (Lidocaine 5% 700 Mg Patch) 700 mg TRDERM Q24H [facility] Last Admin: 03/05/21 00:46 Dose: 700 mg Documented by: Miscellaneous Information (Remove Patch) 1 ea TRDERM Q24H [facility] Last Admin: 03/05/21 12:31 Dose: 1 ea Documented by: Morphine Sulfate (Morphine 2 Mg/Ml Syringe) 1 mg IVPUSH Q3H PRN PRN Reason: Pain Ondansetron HCl (Ondansetron 4 Mg/2 Ml Sdv) 4 mg IVPUSH Q4H PRN PRN Reason: Nausea/Vomiting Oxycodone HCl (Oxycodone 5 Mg Tab) 5 mg PO Q4H PRN PRN Reason: Severe Pain (7-10) Trazodone HCl (Trazodone 50 Mg Tab) 50 mg PO BEDTIME [facility] Last Admin: 03/04/21 21:44 Dose: 50 mg Documented by: Discontinued Medications Acetaminophen (Acetaminophen 325 Mg Tab) 650 mg PO Q4H PRN PRN Reason: Pain (Mild 1-3)/fever Hydromorphone HCl (Hydromorphone 1 Mg/Ml Syringe) 1 mg IVPUSH ONETIME ONE Stop: 03/03/21 00:16 Last Admin: 03/03/21 01:09 Dose: 1 mg Documented by: Hydromorphone HCl (Hydromorphone 1 Mg/Ml Syringe) 0.5 mg IVPUSH Q4H PRN PRN Reason: Severe Pain (7-10) Last Admin: 03/04/21 15:33 Dose: 0.5 mg Documented by: Piperacillin Sod/Tazobactam (Sod 3.375 gm/ Sodium Chloride) 50 mls @ 100 mls/hr IV ONETIME ONE Stop: 03/02/21 09:53 Last Admin: 03/02/21 09:44 Dose: 100 mls/hr Documented by: Sodium Chloride (Normal Saline) 1,000 mls @ 1,000 mls/hr IV .Bolus ONE Stop: 03/02/21 10:34 Last Admin: 03/02/21 09:44 Dose: 1,000 mls/hr Documented by: Lactated Ringer's (Ringers, Lactated) 1,000 mls @ 999 mls/hr IV .BOLUS ONE Stop: 03/02/21 12:45 Last Admin: 03/02/21 12:25 Dose: 999 mls/hr Documented by: Lactated Ringer's (Ringers, Lactated) 1,000 mls @ 125 mls/hr IV Q8H [facility] Last Admin: 03/02/21 21:54 Dose: 125 mls/hr Documented by: Magnesium Sulfate (Magnesium Sulfate In Water 2 Gm/50 Ml) 2 gm in 50 mls @ 50 mls/hr IV ONETIME ONE Stop: 03/03/21 10:45 Last Admin: 03/03/21 10:23 Dose: 50 mls/hr Documented by: Lactated Ringer's (Ringers, Lactated) 1,000 mls @ 100 mls/hr IV Q10H [facility] Last Admin: 03/04/21 19:38 Dose: Not Given Documented by: Ketorolac Tromethamine (Ketorolac 30 Mg/Ml Sdv) 30 mg IVPUSH ONETIME ONE Stop: 03/02/21 07:33 Last Admin: 03/02/21 07:43 Dose: 30 mg Documented by: Lorazepam (Lorazepam 2 Mg/Ml Sdv) 1 mg IVPUSH ONETIME ONE Stop: 03/02/21 23:58 Last Admin: 03/03/21 01:07 Dose: 1 mg Documented by: Morphine Sulfate (Morphine 2 Mg/Ml Syringe) 1 mg IVPUSH Q4H PRN PRN Reason: Pain (severe 7-10) Last Admin: 03/04/21 09:34 Dose: 1 mg Documented by: Morphine Sulfate (Morphine 4 Mg/Ml Syringe) 4 mg IVPUSH ONETIME ONE Stop: 03/02/21 21:43 Last Admin: 03/02/21 22:21 Dose: 4 mg Documented by: Morphine Sulfate (Morphine 2 Mg/Ml Syringe) 1 mg IVPUSH Q3H [facility] Last Admin: 03/05/21 00:42 Dose: Not Given Documented by: Morphine Sulfate (Morphine 2 Mg/Ml Syringe) 1 mg IVPUSH Q3H [facility] Last Admin: 03/05/21 00:42 Dose: Not Given Documented by: Potassium Chloride (Potassium Chloride 10 Meq Tab.Er) 40 meq PO ONETIME ONE Stop: 03/03/21 10:01 Last Admin: 03/03/21 10:22 Dose: 40 meq Documented by: Potassium Chloride (Potassium Chloride 20 Meq Tab.Er) 40 meq PO ONETIME ONE Stop: 03/04/21 10:01 Last Admin: 03/04/21 10:12 Dose: 40 meq Documented by: - Exam General: Alert, Oriented, No Acute Distress Neck: Supple Lungs: Clear to Auscultation, Normal Respiratory Effort Cardiovascular: Regular Rate, Regular Rhythm GI/Abdominal Exam: Normal Bowel Sounds, Soft, Non-Tender Back Exam: Normal Inspection, Full Range of Motion, CVA Tenderness (L) Extremities: Normal Inspection, Normal Range of Motion - Patient Data Lab Results Last 24 hrs: Laboratory Results - last 24 hr 03/04/21 03/05/21 03/05/21 Range/Units 17:17 05:23 05:23 WBC 17.21 H (4.0-11.0) K/uL RBC 3.34 L (4.30-5.90) M/uL Hgb 9.0 L (12.0-16.0) g/dL Hct 27.3 L (36.0-46.0) % MCV 81.7 (80.0-98.0) fL MCH 26.9 L (27.0-32.0) pg MCHC 33.0 (31.0-37.0) g/dL RDW Std Deviation 53.4 (28.0-62.0) fl RDW Coeff of Masoud 18 H (11.0-15.0) % Plt Count 468 H (150-400) K/uL MPV 8.20 (7.40-12.00) fL Add Manual Diff YES Neutrophils % (Manual) 76 (48.0-80.0) % Band Neutrophils % 4 % Lymphocytes % (Manual) 13 L (16.0-40.0) % Monocytes % (Manual) 5 (0.0-15.0) % Metamyelocytes % 2 % Nucleated RBC % 0.0 /100WBC Absolute Seg Neuts 13.1 H (1.4-5.7) Band Neutrophils # 0.7 Lymphocytes # (Manual) 2.2 (0.6-2.4) Monocytes # (Manual) 0.9 H (0.0-0.8) Absolute Metamyelocyte 0.3 Nucleated RBCs # 0 K/uL Sodium 131 L (136-145) mmol/L Potassium 3.5 (3.5-5.1) mmol/L Chloride 96 L (98-107) mmol/L Carbon Dioxide 23.1 (21.0-32.0) mmol/L BUN 21 H (7.0-18.0) mg/dL Creatinine 2.2 H (0.6-1.0) mg/dL Est Cr Clr Drug Dosing 17.15 mL/min Estimated GFR (MDRD) 21.5 ml/min Glucose 114 H (74-106) mg/dL POC Glucose 144 H (70-99) mg/dL Calcium 8.3 L (8.5-10.1) mg/dL Phosphorus 3.3 (2.6-4.7) mg/dL Magnesium 1.7 L (1.8-2.4) mg/dL 03/05/21 03/05/21 Range/Units 07:51 11:51 WBC (4.0-11.0) K/uL RBC (4.30-5.90) M/uL Hgb (12.0-16.0) g/dL Hct (36.0-46.0) % MCV (80.0-98.0) fL MCH (27.0-32.0) pg MCHC (31.0-37.0) g/dL RDW Std Deviation (28.0-62.0) fl RDW Coeff of Masoud (11.0-15.0) % Plt Count (150-400) K/uL MPV (7.40-12.00) fL Add Manual Diff Neutrophils % (Manual) (48.0-80.0) % Band Neutrophils % % Lymphocytes % (Manual) (16.0-40.0) % Monocytes % (Manual) (0.0-15.0) % Metamyelocytes % % Nucleated RBC % /100WBC Absolute Seg Neuts (1.4-5.7) Band Neutrophils # Lymphocytes # (Manual) (0.6-2.4) Monocytes # (Manual) (0.0-0.8) Absolute Metamyelocyte Nucleated RBCs # K/uL Sodium (136-145) mmol/L Potassium (3.5-5.1) mmol/L Chloride (98-107) mmol/L Carbon Dioxide (21.0-32.0) mmol/L BUN (7.0-18.0) mg/dL Creatinine (0.6-1.0) mg/dL Est Cr Clr Drug Dosing mL/min Estimated GFR (MDRD) ml/min Glucose (74-106) mg/dL POC Glucose 114 H 114 H (70-99) mg/dL Calcium (8.5-10.1) mg/dL Phosphorus (2.6-4.7) mg/dL Magnesium (1.8-2.4) mg/dL Result Diagrams: 03/05/21 05:23 03/05/21 05:23 Cipriano Results Last 24 hrs: Microbiology 03/02/21 12:55 Aerobic Blood Culture - Preliminary Blood - Venous - Lab Draw NO GROWTH AFTER 3 DAYS Anaerobic Blood Culture - Final 03/02/21 12:45 Aerobic Blood Culture - Preliminary Blood - Venous NO GROWTH AFTER 3 DAYS Anaerobic Blood Culture - Preliminary NO GROWTH AFTER 3 DAYS Sepsis Event Note - Evaluation Sepsis Screening Result: No Definite Risk - Focused Exam Vital Signs: Vital Signs Temp Pulse Resp BP Pulse Ox 03/05/21 11:00 36.9 C 100 18 138/64 97 03/05/21 07:00 36.6 C 90 18 156/77 H 97 03/05/21 05:15 36.7 C 98 16 146/74 H 96 - Problem List & Annotations (1) Diarrhea SNOMED Code(s): 24205137 Code(s): R19.7 - DIARRHEA, UNSPECIFIED Status: Acute Current Visit: Yes (2) Abdominal mass SNOMED Code(s): 134667895 Code(s): R19.00 - INTRA-ABD AND PELVIC SWELLING, MASS AND LUMP, UNSP SITE Status: Acute Current Visit: Yes (3) Type 2 diabetes mellitus SNOMED Code(s): 29881530 Code(s): E11.9 - TYPE 2 DIABETES MELLITUS WITHOUT COMPLICATIONS Status: Acute Current Visit: No (4) UTI (urinary tract infection) SNOMED Code(s): 64202127 Code(s): N39.0 - URINARY TRACT INFECTION, SITE NOT SPECIFIED Status: Acute Current Visit: No Qualifiers: Urinary tract infection type: acute cystitis Hematuria presence: without hematuria Qualified Code(s): N30.00 - Acute cystitis without hematuria - Problem List Review Problem List Initiated/Reviewed/Updated: Yes - My Orders Last 24 Hours: My Active Orders 03/04/21 Dinner Clear Liquid Diet [DIET] 03/05/21 00:42 Morphine 1 mg IVPUSH Q3H PRN - Plan Plan:: 80 y/o F admitted for N/V diarrhea and back pain. Was found to have a huge retroperitoneal mass. USG done, noted the size has decreased relatively from prior imaging, possibly chronic hematoma. Zofran for N/V cont Morphine oxycodone PRN SCD for Dvt PPX PT assessed the patient, safe for ambulation, may need walker , wheelchair for support, walker prescribed Patient remains hemodynamically stable she may be discharged home with a close follow up with IR at [facility] for which appt has already been made by Dr Leblanc on AM 830 am, patient aware and her close friend who is going to drive her are in agreement of the plan.
[2021-03-05] MEDS ORDERED: Magnesium Oxide 400 MG Tab PO ONE (15:00)
--- NOTE | 2021-03-05 15:09 | PCM.DCSUM1 ---
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 Condition: Stable - Referral to Home Health Date of Face to Face Encounter: 03/05/21 Reason for Homebound Status: unsteay when walking and a fall risk, needs walker to ambulate Primary Care Physician: Perez Coppola MD Skilled Need: PT for strengthing due to weakness, high fall risk - Discharge Diagnosis/Problem(s) (1) Diarrhea SNOMED Code(s): 65324454 ICD Code: R19.7 - DIARRHEA, UNSPECIFIED Status: Acute Current Visit: Yes (2) Abdominal mass SNOMED Code(s): 538338681 ICD Code: R19.00 - INTRA-ABD AND PELVIC SWELLING, MASS AND LUMP, UNSP SITE Status: Acute Current Visit: Yes (3) Type 2 diabetes mellitus SNOMED Code(s): 20332578 ICD Code: E11.9 - TYPE 2 DIABETES MELLITUS WITHOUT COMPLICATIONS Status: Acute Current Visit: No (4) UTI (urinary tract infection) SNOMED Code(s): 87728582 ICD Code: N39.0 - URINARY TRACT INFECTION, SITE NOT SPECIFIED Status: Acute Current Visit: No Qualifiers: Urinary tract infection type: acute cystitis Hematuria presence: without hematuria Qualified Code(s): N30.00 - Acute cystitis without hematuria - Patient Summary/Data Consults: Consultations 03/02/21 09:24 Consult to Physician [CONS] Stat 03/04/21 09:44 PT Evaluation and Treatment [CONS] Routine 03/04/21 09:50 Consult to Case Management/Rifle Case Repairer [CONS] Routine 03/05/21 15:06 Consult to Home Health [CONS] Routine - Patient Instructions Diet: Diabetic Diet Activity: As Tolerated Driving: Do Not Drive Showering/Bathing: May Shower Notify Provider of: Fever, Increased Pain, Swelling and Redness, Drainage, Nausea and/or Vomiting - Discharge Plan Prescriptions/Med Rec: Amoxicillin/Potassium Clav [Augmentin 875-125 Tablet] 1 each PO TID 11 Days #33 tablet Hydrocodone/Acetaminophen [Hydrocodone-Acetamin 5-325 mg] 1 each PO Q6H #20 tablet Home Medications: Home Meds Acarbose 50 mg PO TID 11/27/20 [History] Acetaminophen/Codeine [Tylenol with Codeine No.3 300MG/30MG] 1 tab PO QID PRN 11/27/20 [History] Furosemide 40 mg PO DAILY 11/27/20 [History] gemfibroziL [Gemfibrozil] 600 mg PO BID 11/27/20 [History] glyBURIDE [Micronase] 2.5 mg PO BIDMEALS 11/27/20 [History] lisinopriL [Prinivil] 10 mg PO DAILY 11/27/20 [History] metFORMIN [Glucophage] 500 mg PO TID 11/27/20 [History] traZODone HCl [Trazodone HCl] 50 mg PO BEDTIME 11/27/20 [History] Omeprazole 40 mg PO ACBREAKFAST 02/10/21 [History] Potassium Chloride [Klor-Con 10] 20 meq PO DAILY 03/03/21 [History] Amoxicillin/Potassium Clav [Augmentin 875-125 Tablet] 1 each PO TID 11 Days #33 tablet 03/04/21 [Rx] Hydrocodone/Acetaminophen [Hydrocodone-Acetamin 5-325 mg] 1 each PO Q6H #20 tablet 03/05/21 [Rx] Patient Handouts: Amoxicillin; Clavulanic Acid Tablets, Oxycodone tablets or capsules, Diarrhea, Adult, [id number] Referrals: Homero Leblanc MD [Physician] - Perez Coppola MD [Primary Care Provider] - 03/10/21 9:15 am - Patient Data Vitals - Most Recent: Last Vital Signs Temp 36.9 C 03/05/21 11:00 Pulse 100 03/05/21 11:00 Resp 18 03/05/21 11:00 BP 138/64 03/05/21 11:00 Pulse Ox 97 03/05/21 11:00 Weight - Most Recent: 84.482 kg I&O - Last 24 hours: Intake & Output 03/05/21 03/05/21 03/05/21 06:59 14:59 22:59 Intake Total 400 Output Total 700 Balance -300 Lab Results - Last 24 hrs: Laboratory Results - last 24 hr 03/04/21 03/05/21 03/05/21 Range/Units 17:17 05:23 05:23 WBC 17.21 H (4.0-11.0) K/uL RBC 3.34 L (4.30-5.90) M/uL Hgb 9.0 L (12.0-16.0) g/dL Hct 27.3 L (36.0-46.0) % MCV 81.7 (80.0-98.0) fL MCH 26.9 L (27.0-32.0) pg MCHC 33.0 (31.0-37.0) g/dL RDW Std Deviation 53.4 (28.0-62.0) fl RDW Coeff of Masoud 18 H (11.0-15.0) % Plt Count 468 H (150-400) K/uL MPV 8.20 (7.40-12.00) fL Add Manual Diff YES Neutrophils % (Manual) 76 (48.0-80.0) % Band Neutrophils % 4 % Lymphocytes % (Manual) 13 L (16.0-40.0) % Monocytes % (Manual) 5 (0.0-15.0) % Metamyelocytes % 2 % Nucleated RBC % 0.0 /100WBC Absolute Seg Neuts 13.1 H (1.4-5.7) Band Neutrophils # 0.7 Lymphocytes # (Manual) 2.2 (0.6-2.4) Monocytes # (Manual) 0.9 H (0.0-0.8) Absolute Metamyelocyte 0.3 Nucleated RBCs # 0 K/uL Sodium 131 L (136-145) mmol/L Potassium 3.5 (3.5-5.1) mmol/L Chloride 96 L (98-107) mmol/L Carbon Dioxide 23.1 (21.0-32.0) mmol/L BUN 21 H (7.0-18.0) mg/dL Creatinine 2.2 H (0.6-1.0) mg/dL Est Cr Clr Drug Dosing 17.15 mL/min Estimated GFR (MDRD) 21.5 ml/min Glucose 114 H (74-106) mg/dL POC Glucose 144 H (70-99) mg/dL Calcium 8.3 L (8.5-10.1) mg/dL Phosphorus 3.3 (2.6-4.7) mg/dL Magnesium 1.7 L (1.8-2.4) mg/dL 03/05/21 03/05/21 Range/Units 07:51 11:51 WBC (4.0-11.0) K/uL RBC (4.30-5.90) M/uL Hgb (12.0-16.0) g/dL Hct (36.0-46.0) % MCV (80.0-98.0) fL MCH (27.0-32.0) pg MCHC (31.0-37.0) g/dL RDW Std Deviation (28.0-62.0) fl RDW Coeff of Masoud (11.0-15.0) % Plt Count (150-400) K/uL MPV (7.40-12.00) fL Add Manual Diff Neutrophils % (Manual) (48.0-80.0) % Band Neutrophils % % Lymphocytes % (Manual) (16.0-40.0) % Monocytes % (Manual) (0.0-15.0) % Metamyelocytes % % Nucleated RBC % /100WBC Absolute Seg Neuts (1.4-5.7) Band Neutrophils # Lymphocytes # (Manual) (0.6-2.4) Monocytes # (Manual) (0.0-0.8) Absolute Metamyelocyte Nucleated RBCs # K/uL Sodium (136-145) mmol/L Potassium (3.5-5.1) mmol/L Chloride (98-107) mmol/L Carbon Dioxide (21.0-32.0) mmol/L BUN (7.0-18.0) mg/dL Creatinine (0.6-1.0) mg/dL Est Cr Clr Drug Dosing mL/min Estimated GFR (MDRD) ml/min Glucose (74-106) mg/dL POC Glucose 114 H 114 H (70-99) mg/dL Calcium (8.5-10.1) mg/dL Phosphorus (2.6-4.7) mg/dL Magnesium (1.8-2.4) mg/dL WANG Results - Last 24 hrs: Microbiology 03/02/21 12:55 Aerobic Blood Culture - Preliminary Blood - Venous - Lab Draw NO GROWTH AFTER 3 DAYS Anaerobic Blood Culture - Final 03/02/21 12:45 Aerobic Blood Culture - Preliminary Blood - Venous NO GROWTH AFTER 3 DAYS Anaerobic Blood Culture - Preliminary NO GROWTH AFTER 3 DAYS Med Orders - Current: Current Medications Acetaminophen (Acetaminophen 325 Mg Tab) 650 mg PO Q4H PRN PRN Reason: Fever Last Admin: 03/02/21 19:20 Dose: 650 mg Documented by: Acetaminophen/Codeine Phosphate (Acetaminophen/Codeine 300-30 Mg Tab) 1 tab PO QID PRN PRN Reason: Moderate Pain (4-6) Last Admin: 03/05/21 05:46 Dose: 1 tab Documented by: Albuterol/Ipratropium (Albuterol/Ipratropium 3.0-0.5 Mg/3 Ml Neb Soln) 3 ml NEB Q4HRRT PRN PRN Reason: Shortness Of Breath/wheezing Benzocaine/Menthol (Benzocaine/Cetylpyridinium/Menthol Lozenge) 1 lozenge MUCMEM Q4H PRN PRN Reason: Sore Throat Last Admin: 03/05/21 09:43 Dose: 1 lozenge Documented by: Dextrose/Water (50% Dextrose In Water 50 Ml Syringe) 50 ml IV ASDIRECTED PRN PRN Reason: Hypoglycemia Glucagon (Glucagon,Human Recombinant 1 Mg Vial) 1 mg IM ASDIRECTED PRN PRN Reason: Hypoglycemia Piperacillin Sod/Tazobactam (Sod 3.375 gm/ Sodium Chloride) 50 mls @ 100 mls/hr IV Q8H [facility] Last Admin: 03/05/21 09:26 Dose: 100 mls/hr Documented by: Pantoprazole Sodium 40 mg/ (Sodium Chloride) 10 mls @ 200 mls/hr IV Q12HR [facility] Last Admin: 03/05/21 09:26 Dose: 200 mls/hr Documented by: Insulin Aspart (Insulin Aspart 100 Units/Ml 3 Ml Pen) 0 unit SUBCUT TIDAC [facility]; Protocol Last Admin: 03/05/21 11:30 Dose: Not Given Documented by: Lidocaine (Lidocaine 5% 700 Mg Patch) 700 mg TRDERM Q24H [facility] Last Admin: 03/05/21 00:46 Dose: 700 mg Documented by: Miscellaneous Information (Remove Patch) 1 ea TRDERM Q24H [facility] Last Admin: 03/05/21 12:31 Dose: 1 ea Documented by: Morphine Sulfate (Morphine 2 Mg/Ml Syringe) 1 mg IVPUSH Q3H PRN PRN Reason: Pain Ondansetron HCl (Ondansetron 4 Mg/2 Ml Sdv) 4 mg IVPUSH Q4H PRN PRN Reason: Nausea/Vomiting Oxycodone HCl (Oxycodone 5 Mg Tab) 5 mg PO Q4H PRN PRN Reason: Severe Pain (7-10) Trazodone HCl (Trazodone 50 Mg Tab) 50 mg PO BEDTIME DARCY Last Admin: 03/04/21 21:44 Dose: 50 mg Documented by: Discontinued Medications Acetaminophen (Acetaminophen 325 Mg Tab) 650 mg PO Q4H PRN PRN Reason: Pain (Mild 1-3)/fever Hydromorphone HCl (Hydromorphone 1 Mg/Ml Syringe) 1 mg IVPUSH ONETIME ONE Stop: 03/03/21 00:16 Last Admin: 03/03/21 01:09 Dose: 1 mg Documented by: Hydromorphone HCl (Hydromorphone 1 Mg/Ml Syringe) 0.5 mg IVPUSH Q4H PRN PRN Reason: Severe Pain (7-10) Last Admin: 03/04/21 15:33 Dose: 0.5 mg Documented by: Piperacillin Sod/Tazobactam (Sod 3.375 gm/ Sodium Chloride) 50 mls @ 100 mls/hr IV ONETIME ONE Stop: 03/02/21 09:53 Last Admin: 03/02/21 09:44 Dose: 100 mls/hr Documented by: Sodium Chloride (Normal Saline) 1,000 mls @ 1,000 mls/hr IV .Bolus ONE Stop: 03/02/21 10:34 Last Admin: 03/02/21 09:44 Dose: 1,000 mls/hr Documented by: Lactated Ringer's (Ringers, Lactated) 1,000 mls @ 999 mls/hr IV .BOLUS ONE Stop: 03/02/21 12:45 Last Admin: 03/02/21 12:25 Dose: 999 mls/hr Documented by: Lactated Ringer's (Ringers, Lactated) 1,000 mls @ 125 mls/hr IV Q8H [facility] Last Admin: 03/02/21 21:54 Dose: 125 mls/hr Documented by: Magnesium Sulfate (Magnesium Sulfate In Water 2 Gm/50 Ml) 2 gm in 50 mls @ 50 mls/hr IV ONETIME ONE Stop: 03/03/21 10:45 Last Admin: 03/03/21 10:23 Dose: 50 mls/hr Documented by: Lactated Ringer's (Ringers, Lactated) 1,000 mls @ 100 mls/hr IV Q10H [facility] Last Admin: 03/04/21 19:38 Dose: Not Given Documented by: Ketorolac Tromethamine (Ketorolac 30 Mg/Ml Sdv) 30 mg IVPUSH ONETIME ONE Stop: 03/02/21 07:33 Last Admin: 03/02/21 07:43 Dose: 30 mg Documented by: Lorazepam (Lorazepam 2 Mg/Ml Sdv) 1 mg IVPUSH ONETIME ONE Stop: 03/02/21 23:58 Last Admin: 03/03/21 01:07 Dose: 1 mg Documented by: Magnesium Oxide (Magnesium Oxide 400 Mg Tab) 800 mg PO ONETIME ONE Stop: 03/05/21 15:01 Morphine Sulfate (Morphine 2 Mg/Ml Syringe) 1 mg IVPUSH Q4H PRN PRN Reason: Pain (severe 7-10) Last Admin: 03/04/21 09:34 Dose: 1 mg Documented by: Morphine Sulfate (Morphine 4 Mg/Ml Syringe) 4 mg IVPUSH ONETIME ONE Stop: 03/02/21 21:43 Last Admin: 03/02/21 22:21 Dose: 4 mg Documented by: Morphine Sulfate (Morphine 2 Mg/Ml Syringe) 1 mg IVPUSH Q3H [facility] Last Admin: 03/05/21 00:42 Dose: Not Given Documented by: Morphine Sulfate (Morphine 2 Mg/Ml Syringe) 1 mg IVPUSH Q3H [facility] Last Admin: 03/05/21 00:42 Dose: Not Given Documented by: Potassium Chloride (Potassium Chloride 10 Meq Tab.Er) 40 meq PO ONETIME ONE Stop: 03/03/21 10:01 Last Admin: 03/03/21 10:22 Dose: 40 meq Documented by: Potassium Chloride (Potassium Chloride 20 Meq Tab.Er) 40 meq PO ONETIME ONE Stop: 03/04/21 10:01 Last Admin: 03/04/21 10:12 Dose: 40 meq Documented by:
[2021-03-05] MEDS: traZODone 50 MG Tab PO SCH (21:31)
[2021-03-05] MEDS ORDERED: amLODIPine 5 MG Tab PO ONE (21:51)
--- NOTE | 2021-03-05 22:58 | PCM.SN.2 ---
- Free Text/Narrative Note: Patient seen by me again this evening at bedside, patient resting comfortably back pain is much better she is ambulating much better, appetite has improved her hemoglobin is stable. Patient will be discharged early this morning so that she can make make it to her appointment for IR guided drainage/biopsy at [facility].
[2021-03-06] MEDS: Piperacillin/Tazobactam 3.375 GM in Sodium Chloride 0.9% 50 ML IV SCH (01:11)
[2021-03-06] MEDS: Acetaminophen/Codeine 300-30 MG Tab PO PRN (01:16)
== END 2021-03-06 04:20 | disposition home health service (06) ==
LOC: MW.ED 06:37 → MW.MS 09:25
PROVIDERS: ADMIT Student in an Organized Health Care Education/Training Program; ATTEND Student in an Organized Health Care Education/Training Program
DX: R19.7 Diarrhea, unspecified (principal); G89.29 Other chronic pain; M54.5 Low back pain; I25.2 Old myocardial infarction; E11.9 Type 2 diabetes mellitus without complications; E78.00 Pure hypercholesterolemia, unspecified; I10 Essential (primary) hypertension; R19.00 Intra-abdominal and pelvic swelling, mass and lump, unspecified site; N39.0 Urinary tract infection, site not specified; R11.2 Nausea with vomiting, unspecified; Z20.822 Contact with and (suspected) exposure to COVID-19; Z88.8 Allergy status to other drugs, medicaments and biological substances; Z79.899 Other long term (current) drug therapy; Z79.84 Long term (current) use of oral hypoglycemic drugs; Z98.890 Other specified postprocedural states; Z87.891 Personal history of nicotine dependence; Z90.49 Acquired absence of other specified parts of digestive tract
CPT/HCPCS: 0240U; 36415; 36430; 74176; 74176-26; 74181; 74181-26; 76770; 76770-26; 80048; 80053; 81001; 82378; 82947; 83605; 83690; 83735; 84100; 85014; 85018; 85025; 85610; 86850; 86900; 86901; 86920; 86921; 86922; 87040; 87086; 87088; 87186; 93005; 93010; 96365; 96366; 96375; 96376; 97162-GP; 97530-GP; 99284; 99285-25; A9270-GY; C9113; G0378; J1170; J1885; J2060; J2270; J2543; J3475; J7030; J7120; P9016

== ENCOUNTER 2022-03-07 15:29 | Inpatient (IN) | payer MEDICARE, BC ==
[2022-03-07] MEDS ORDERED: Sodium Chloride 0.9% 10 ML Syringe FLUSH PRN (15:58)
[2022-03-07] MEDS ORDERED: Sodium Chloride 0.9% 1,000 ML IV ONE (15:58)
[2022-03-07] MEDS ORDERED: Sodium Chloride 0.9% 2.5 ML Syringe FLUSH PRN (15:58)
[2022-03-07 16:37] LABS: CARBON DIOXIDE,CO2 27.4 mmol/L (21.0-32.0); POTASSIUM,K 2.9 mmol/L (3.5-5.1)
[2022-03-07] MEDS ORDERED: Potassium Chloride 10% 20 MEQ/15 ML Soln 30 ML UD Cup PO ONE (17:41)
[2022-03-07 19:14] LABS: CORONAVIRUS COVID-19 NAA NEGATIVE (NEGATIVE); INFLUENZA A NAA NEGATIVE (NEGATIVE); INFLUENZA B NAA NEGATIVE (NEGATIVE)
[2022-03-07] MEDS ORDERED: Clindamycin Phosphate in D5W 900 MG in Premix Bag 1 BAG IV ONE ×2 (19:17)
[2022-03-07] MEDS ORDERED: VANCOmycin 1.25 GM/250 ML 250 ML IV ONE (19:30)
[2022-03-07] MEDS ORDERED: 50% Dextrose in Water 50 ML Syringe IVPUSH PRN (20:46)
[2022-03-07] MEDS ORDERED: Glucagon,Human Recombinant 1 MG Vial IM PRN (20:46)
[2022-03-07] MEDS: Gemfibrozil 600 MG Tab PO SCH (22:24)
[2022-03-07] MEDS: metFORMIN 500 MG Tab PO SCH (22:24)
[2022-03-07] MEDS: Enoxaparin 40 MG/0.4 ML Syringe SUBCUT SCH (22:24)
[2022-03-07] MEDS: Acetaminophen 325 MG Tab PO PRN (22:25)
[2022-03-08] MEDS ORDERED: Clindamycin Phosphate in D5W 0 ML ONE (01:30)
[2022-03-08] MEDS: Acetaminophen 325 MG Tab PO PRN ×4 (04:09→23:07)
[2022-03-08] MEDS ORDERED: Clindamycin Phosphate in D5W 50 ML ONE (06:38)
[2022-03-08] MEDS: Omeprazole 20 MG Cap.CR PO SCH (06:59)
[2022-03-08] MEDS: metFORMIN 500 MG Tab PO SCH ×4 (07:01→17:41)
[2022-03-08] MEDS: Insulin Aspart 100 Units/ML 3 ML Pen SUBCUT SCH ×3 (07:31→17:43)
[2022-03-08 07:56] LABS: CARBON DIOXIDE,CO2 26.6 mmol/L (21.0-32.0); POTASSIUM,K 3.9 mmol/L (3.5-5.1)
[2022-03-08] MEDS: Gemfibrozil 600 MG Tab PO SCH ×2 (08:09→21:30)
[2022-03-08] MEDS: Lisinopril 10 MG Tab PO SCH (08:09)
[2022-03-08] MEDS ORDERED: Clindamycin Phosphate in D5W 600 MG in Premix Bag 1 BAG IV SCH ×2 (09:15)
[2022-03-08] MEDS ORDERED: GLYBURIDE 1.25 MG PO SCH (11:30)
[2022-03-08] MEDS: Clindamycin Phosphate in D5W 600 MG in Premix Bag 1 BAG IV SCH ×4 (13:28→18:18)
[2022-03-08] MEDS: Enoxaparin 40 MG/0.4 ML Syringe SUBCUT SCH (19:58)
[2022-03-09] MEDS: Clindamycin Phosphate in D5W 600 MG in Premix Bag 1 BAG IV SCH ×8 (01:34→18:36)
[2022-03-09] MEDS: Acetaminophen 325 MG Tab PO PRN ×3 (04:30→21:03)
[2022-03-09 06:17] LABS: CARBON DIOXIDE,CO2 26.9 mmol/L (21.0-32.0); POTASSIUM,K 3.6 mmol/L (3.5-5.1)
[2022-03-09] MEDS: Gemfibrozil 600 MG Tab PO SCH ×2 (08:03→21:01)
[2022-03-09] MEDS: Lisinopril 10 MG Tab PO SCH (08:03)
[2022-03-09] MEDS: Omeprazole 20 MG Cap.CR PO SCH (08:06)
[2022-03-09] MEDS: Insulin Aspart 100 Units/ML 3 ML Pen SUBCUT SCH ×3 (08:11→17:17)
[2022-03-09] MEDS: Potassium Chloride 10 MEQ Tab.ER PO SCH (10:02)
[2022-03-09] MEDS: Furosemide 20 MG Tab PO SCH (10:02)
[2022-03-09] MEDS ORDERED: diphenhydrAMINE 25 MG Cap PO PRN (10:14)
[2022-03-09] MEDS: Fluticasone NASAL Spray 16 GM Bottle NASBOTH SCH (11:59)
[2022-03-09] MEDS ORDERED: metFORMIN 500 MG Tab ONE (18:19)
[2022-03-09] MEDS: metFORMIN 500 MG Tab PO SCH ×2 (18:20→22:11)
[2022-03-09] MEDS: Enoxaparin 40 MG/0.4 ML Syringe SUBCUT SCH (21:01)
[2022-03-09] MEDS: diphenhydrAMINE 25 MG Cap PO PRN (21:01)
[2022-03-10] MEDS: Clindamycin Phosphate in D5W 600 MG in Premix Bag 1 BAG IV SCH ×8 (00:56→18:27)
[2022-03-10] MEDS: Omeprazole 20 MG Cap.CR PO SCH (06:31)
[2022-03-10] MEDS: Insulin Aspart 100 Units/ML 3 ML Pen SUBCUT SCH ×3 (08:11→17:54)
[2022-03-10] MEDS: Fluticasone NASAL Spray 16 GM Bottle NASBOTH SCH (08:12)
[2022-03-10] MEDS: Lisinopril 10 MG Tab PO SCH (08:13)
[2022-03-10] MEDS: Gemfibrozil 600 MG Tab PO SCH ×2 (08:13→20:03)
[2022-03-10] MEDS: Furosemide 20 MG Tab PO SCH (08:13)
[2022-03-10] MEDS: Acetaminophen 325 MG Tab PO PRN ×2 (08:14→18:07)
[2022-03-10] MEDS: Potassium Chloride 10 MEQ Tab.ER PO SCH (08:14)
[2022-03-10] MEDS: metFORMIN 500 MG Tab PO SCH ×3 (08:18→20:04)
[2022-03-10] MEDS: Enoxaparin 40 MG/0.4 ML Syringe SUBCUT SCH (20:03)
[2022-03-10] MEDS: diphenhydrAMINE 25 MG Cap PO PRN (20:04)
[2022-03-11] MEDS: Clindamycin Phosphate in D5W 600 MG in Premix Bag 1 BAG IV SCH ×8 (00:25→18:13)
[2022-03-11] MEDS: Acetaminophen 325 MG Tab PO PRN ×3 (01:24→16:11)
[2022-03-11] MEDS: Omeprazole 20 MG Cap.CR PO SCH (06:32)
[2022-03-11] MEDS: Insulin Aspart 100 Units/ML 3 ML Pen SUBCUT SCH ×3 (06:32→18:04)
[2022-03-11 07:02] LABS: CARBON DIOXIDE,CO2 28.5 mmol/L (21.0-32.0); POTASSIUM,K 4.3 mmol/L (3.5-5.1)
[2022-03-11] MEDS ORDERED: Ondansetron 4 MG/2 ML SDV IVPUSH PRN (08:03)
[2022-03-11] MEDS: Fluticasone NASAL Spray 16 GM Bottle NASBOTH SCH (08:09)
[2022-03-11] MEDS: Potassium Chloride 10 MEQ Tab.ER PO SCH (08:10)
[2022-03-11] MEDS: Gemfibrozil 600 MG Tab PO SCH ×2 (08:11→20:24)
[2022-03-11] MEDS: Furosemide 20 MG Tab PO SCH (08:11)
[2022-03-11] MEDS: Lisinopril 10 MG Tab PO SCH (08:11)
[2022-03-11] MEDS: metFORMIN 500 MG Tab PO SCH ×3 (10:13→20:54)
[2022-03-11] MEDS: Acetaminophen/Butalbital/Caffeine 325-50-40 MG Tab PO PRN ×2 (12:08→18:41)
[2022-03-11] MEDS: diphenhydrAMINE 25 MG Cap PO PRN (20:25)
[2022-03-11] MEDS: Enoxaparin 40 MG/0.4 ML Syringe SUBCUT SCH (20:25)
[2022-03-12] MEDS: Acetaminophen/Butalbital/Caffeine 325-50-40 MG Tab PO PRN ×3 (00:30→09:01)
[2022-03-12] MEDS: Clindamycin Phosphate in D5W 600 MG in Premix Bag 1 BAG IV SCH ×4 (00:35→06:45)
[2022-03-12] MEDS: Omeprazole 20 MG Cap.CR PO SCH (06:43)
[2022-03-12 07:05] LABS: POTASSIUM,K 4.2 mmol/L (3.5-5.1)
[2022-03-12] MEDS: Insulin Aspart 100 Units/ML 3 ML Pen SUBCUT SCH (07:21)
[2022-03-12] MEDS: Fluticasone NASAL Spray 16 GM Bottle NASBOTH SCH (09:00)
[2022-03-12] MEDS: Potassium Chloride 10 MEQ Tab.ER PO SCH (09:00)
[2022-03-12] MEDS: Lisinopril 10 MG Tab PO SCH (09:01)
[2022-03-12] MEDS: Gemfibrozil 600 MG Tab PO SCH (09:01)
[2022-03-12] MEDS: Furosemide 20 MG Tab PO SCH (09:01)
[2022-03-12] MEDS: metFORMIN 500 MG Tab PO SCH (09:08)
== END 2022-03-12 11:10 | disposition home or self-care (01) | DRG 603 ==
LOC: MW.ED 15:29 → MW.MS 18:18
PROVIDERS: ADMIT Internal Medicine; ATTEND Internal Medicine
DX: L03.114 Cellulitis of left upper limb (principal); N17.9 Acute kidney failure, unspecified; I10 Essential (primary) hypertension; E11.9 Type 2 diabetes mellitus without complications; E78.00 Pure hypercholesterolemia, unspecified; K21.9 Gastro-esophageal reflux disease without esophagitis; M19.90 Unspecified osteoarthritis, unspecified site; G43.909 Migraine, unspecified, not intractable, without status migrainosus; F32.A Depression, unspecified; Z20.822 Contact with and (suspected) exposure to COVID-19; D75.839 Thrombocytosis, unspecified; G47.00 Insomnia, unspecified; D64.9 Anemia, unspecified; Z86.19 Personal history of other infectious and parasitic diseases; Z98.49 Cataract extraction status, unspecified eye; Z90.49 Acquired absence of other specified parts of digestive tract; Z79.82 Long term (current) use of aspirin; Z79.899 Other long term (current) drug therapy; Z79.84 Long term (current) use of oral hypoglycemic drugs; Z88.8 Allergy status to other drugs, medicaments and biological substances
CPT/HCPCS: 0240U; 36415; 71045; 80048; 80053; 80202; 82947; 83605; 85025; 85379; 86140; 87040; 93971; 96365; 96367; 99285; 99284; A9270-GY; J1650; J1815-GY; J2405; J3370; J3490; J7030; J7050